=== PATIENT | female | born 1975 | race Caucasian/White ===

== ENCOUNTER 2024-09-24 22:54 | Observation (INO) | payer MEDICARE, SELFPAY ==
--- OUTSIDE RECORDS SUMMARY | 2012-03-13 11:00 | XMS_ITS | Continuity of Care Document ---
Author Organization [facility] Address [address] [place] [address] Phone Care Team Providers Care Business Office Technician Name Role Phone Norman Odonnell MD Unavailable Unavailable Allergies, Adverse Reactions, Alerts Substance Reaction Status Criticality No Known allergies Medications Medication Instructions Dosage Effective Dates (start - stop) Status Comments TIZANIDINE HCL (unknown strength) take 1 capsule by oral route 3 times every day Not Available - Active PRAVASTATIN SODIUM (unknown strength) take 2 tablet by oral route every day Not Available - Active BUPROPION HCL (unknown strength) Not Available - Active LANTUS (unknown strength) inject by subcutaneous route as per insulin protocol Not Available - Active NOVOLOG (unknown strength) use as directed Not Available - Active Procedures Procedure Date OFFICE/OUTPATIENT VISIT, NEW Advance Directives Directive Yes / No Effective Date File Name Resuscitation Not Answered N/A N/A Life Support Not Answered N/A N/A Intubation Not Answered N/A N/A Antibiotics Not Answered N/A N/A IV Fluid Support Not Answered N/A N/A Tube Feed Not Answered N/A N/A Other Directive N/A N/A WARNING:The information contained in this section is historical and is provided for information only and does not constitute a legal document or any assurance that the information is still accurate. Please verify the information with the pritchett of the legal document before using it for clinical purposes. Encounters Encounter Description Practice Location Reason(s) For Visit Diagnoses Date Provider Providers Copied on Encounter OFFICE/OUTPATI ENT VISIT, [facility], [address] [facility], [place], [address], [place] tel:[phone] [facility] [employer] NOS Blas Austin. [address] [facility], [place], [place], [id number], [place]. tel:[phone] Other Provider: Aaron Meng, [address], [place], [address]. tel:[phone] ring Provider: David Ferro, [address] [facility], 3rd Floor, [place], [address]. tel:[phone] Family History Family Member Type Diagnosis Age At Onset No Information Payers Payer name Insurance type Covered republican ID Authoriza tion(s) No Information Social History Type Description Quantity Date Captured Comments Alcohol Use Details No Caffeine Use Details Unknown Tobacco Use Status No Information Smoking Status Current every day smoker Smoking Tobacco Use Details Cigarette: No Details Available Cigarette: No Details Available Sex Female Chief Complaint And Reason For Visit No Information Reason For Referral Reason For Referral No Information History Of Present Illness Encounter Date Complaint History Of Prese nt Illness No Information Functional Status Date Functional Assessmen t No Information Instructions Date Instruction Additional Infor mation - OPTIC ATROPHY NOS - OU, with h/o disc swelling. could be diabetic papillopathy, naion, or optic neuritis given underlying medical diagnoses. from treatment standpoint it doesn't matter. Interestingly, pt unaware of change in vision. Related to See impression: general plan - Return in PRN Related to See i mpression: general plan Assessments Type Assessment Date No Information Patient Care Teams Name Effective Dates (start - stop) Status Members No Information
--- OUTSIDE RECORDS SUMMARY | 2021-09-22 05:00 | XMS_ITS | Encounter Summary ---
Author Organization [place] [address] Care Team Providers Care Ski Patroller Name Role Phone Selin Belcher MD Unavailable [phone] Héctor Espinoza DO, Viral Primary Care Provider [phone] Encounter Details Date Type Department Care Team (Late st Contact Info) Description 09/22/2021 5:00 AM EDT Hospital Encounter SE Referral Lab 1 [place], [place] [id number] Amina Rodriguez, KNITTING MACHINE FIXER [address] [facility] [address] [place] [address] Social History Tobacco Use Types Packs/Day Years Used Date Smoking Tobacco: Former Cigarettes 0.3 32.1 1 990 - 05/01/2021 Smokeless Tobacco: Never Comments:vapes Alcohol Use Standard Drinks/Week Comments Not Currently 0 (1 standard drink = 0.6 oz pur e alcohol) occasion, none for 1 year Overall Financial Resource Strain (CARDIA) Answe r Date Recorded How hard is it for you to pa y for the very basics like food, housing, medical care, and heating? Somewhat hard 12/08/2023 PHQ-2 Answer Date Recorded PHQ-2 Total Score 0 10/27/2023 [facility] [place] of Occupat ional Health - Occupational Stress Questionnaire Answer Date Recorded Do you feel stress - tense, restless, nervous, or anxious, or unable to sleep at night because your mind is troubled all the time - these days? To some extent 12/08/2023 Exercise Vital Sign Answer Date Recorde d On average, how many days pe r week do you engage in moderate to strenuous exercise (like a brisk walk)? 7 days 12/08/2023 On average, how many minutes do you engage in exercise at this level? 30 min 12/08/2023 Hunger Vital Sign Answer Date Recorded Within the past 12 months, y ou worried that your food would run out before you got the money to buy more. Never true 12/05/19 23 Within the past 12 months, t he food you bought just didn't last and you didn't have money to get more. Never true 12/04/2022 PRAPARE - Transportation Answer Date Re corded In the past 12 months, has l ack of transportation kept you from medical appointments or from getting medications? No 11/2023 In the past 12 months, has l ack of transportation kept you from meetings, work, or from getting things needed for daily living? No 12/08/2023 Housing Stability Vital Sign Answer Dav e Recorded In the last 12 months, was t here a time when you were not able to pay the mortgage or rent on time? No 12/04/2022 Number of Places Lived in the Last Year Not on f ile 12/04/2022 In the last 12 months, was t here a time when you did not have a steady place to sleep or slept in a half-way (including now)? No 12/04/2022 Sexually Active Control Partners Comments Yes Comments No Sex and Gender Information Value Date Recorded Sex Assigned at Not on file Legal Sex Female 7:32 PM EDT Gender Identity Not on file Sexual Orientation Not on file COVID-19 Exposure Response Date Recorded In the last 10 days, have yo u been in contact with someone who was confirmed or suspected to have Coronavirus/COVID-19? No / Unsure 11/07/2021 11:05 AM EDT documented as of this encounter Functional Status * Cognitive and Functional Status Question Answer Date of Assessment Author Is the person deaf or does h e/she have serious difficulty hearing? No 10/27/2023 7:59 AM EDT Yasemin Gonzales RMA Is the person blind or does he/she have serious difficulty seeing even when wearing glasses? No 10/27/2023 7:59 AM EDT Yasemin Gonzales R MA Does this person have seriou s difficulty walking or climbing stairs? No 10/27/2023 7:59 AM EDT Yasemin Gonzales RMA Does this person have diffic ulty dressing or bathing? No 10/27/2023 7:59 AM EDT Yasemin Gonzales RM A * Is the person deaf or does he/she have serious difficulty hearing? Answer Date of Assessment Author No 11/06/2020 8:26 AM EDT Mast RMA * Is the person blind or does he/she have serious difficulty seeing even when wearing glasses? Answer Date of Assessment Author No 11/06/2020 8:26 AM EDT Mast RMA * Does this person have serious difficulty walking or climbing stairs? Answer Date of Assessment Author No 11/06/2020 8:26 AM EDT Mast RMA * Does this person have difficulty dressing or bathing? Answer Date of Assessment Author No 11/06/2020 8:26 AM EDT Mast RMA * Because of a physical, mental or emotional condition, does this person have difficulty doing errands alone such as visiting a doctor's office or shopping? Answer Date of Assessment Author No 11/06/2020 8:26 AM EDDasilva RMA * PHQ-9 Total Score Answer Date of Assessment Author 0 10/27/2023 8:00 AM EDDasilva RMA * Question Answer Date of Assessment Author Little interest or pleasure in doing things 0 10/27/2023 8:00 AM EDYasemin Gonzalez RMA Feeling down, depressed, or hopeless 0 09/29 8:00 AM Yasemin Schreiber RMA PHQ-2 Total Score 0 10/27/2023 8:00 AM Yasemin Schreiber RMA * Question Answer Date of Assessment Author Feeling Nervous, Anxious, or on Edge 3 09/29 7:59 AM Yasemin Schreiber RMA Not Being Able to Stop or Co ntrol Worrying 3 10/27/2023 7:59 AM Yasemin Schreiber RMA Worrying too Much About Diff erent Things 3 10/27/2023 7:59 AM EDT Yasemin Gonzales RMA Trouble Relaxing 0 10/27/2023 7:59 AM EDT Yasemin Ac RMA Being so Restless That it is Hard to Sit Still 0 10/27/2023 7:59 AM EDT Yasemin Gonzales RMA Becoming Easily Annoyed or Irritable 1 09/29 7:59 AM EDT Yasemin Gonzales RMA Feeling Afraid as if Somethi ng Awful Might Happen 0 10/27/2023 7:59 AM EDT Yasemin Gonzales RMA ROBERT-7 Total Score 10 10/27/2023 7:59 AM EDT Yasemin Gonzales RMA * Suicide Severity Rating Answer Date of Assessment Author No Risk, Screening Complete 09/28/2021 11:28 AM EDT Johny Stubbs RN * [place] Suicide Severity Rating Scale (Q shift for moderate and high) Question Answer Date of Assessment Author 1. In the past month, have y ou wished you were or wished you could go to sleep and not wake up? 0 09/28/2021 11:28 AM Johny Thacker RN 2. In the past month, have y ou actually had any thoughts of killing yourself? (If no, skip to question 6) 0 09/28/2021 11:28 AM Johny Thacker RN 6. Have you ever done anythi ng, started to do anything, or prepared to do anything to end your life? 0.0 09/28/2021 11:28 AM Johny Thacker RN documented as of this encounter Mental Status * Cognitive and Functional Status Question Answer Entry Date Author Because of a physical, menta l or emotional condition, does this person have difficulty doing errands alone such as visiting a doctor's office or shopping? No 10/27/2023 7:59 AM EDT Yasemin Gonzales RMA Because of a physical, menta l or emotional condition, does this person have serious difficulty concentrating, remembering or making decisions? No 10/27/2023 7:59 AM EDT Yasemin Gonzales RMA * Because of a physical, mental or emotional condition, does this person have serious difficulty concentrating, remembering or making decisions? Answer Entry Date Author No 11/06/2020 8:26 AM EDT Mast RMA documented in this encounter Plan of Treatment Not on file documented as of this encounter Goals Goal Patient Goal Type Associated Problems Recent Progress Patient-Stated? Author Blood Pressure < 140/90 Blood Pressure 118/64(07/26 8:06 AM EDT) No Shannan De Jesus RMA 45 grams of carbohydrates intake for women Diet On track(2017 1:49 PM EDT) Yes Meagan Govea, RN Note: Patient to continue sliding scale of carbohydrates in conjunction with sliding scale of insulin. BMI (Calculated) < 30 General 33.2( 025 8:06 AM EDT) No Shannan De Jesus RMA Maintain a healthy diet, exercise regularly and maintain an ideal body weight General On track(2017 1:49 PM EDT) No Yasemin Gonzales RMA Stay Tobacco Free Lifestyle On track(2017 1:49 PM EDT) No Yasemin Gonzales RMA Check fasting glucose daily and document Lifestyle On track(2017 1:49 PM EDT) No Meagan Govea, RN HEMOGLOBIN A1C < 7.0 Result Component 9.9(08/28/19 7:33 AM EDT) No Stefani Noriega LPN documented as of this encounter Results * (ABNORMAL) COMPREHENSIVE METABOLIC PANEL (09/22/2021 9:00 AM EDT) Sodium 133(L) 136 - 145 mmol/L 09/22/2021 11:23 AM EDT [facility] Potassium 4.3 3.5 - 5.0 mmol/L 09/22/2021 11:23 AM EDT [facility] Chloride 96(L) 98 - 107 mmol/L 09/22/2021 11:23 AM EDT [facility] Total CO2 27 22 - 29 mmol/L 09/22/2021 11:23 AM EDT [facility] Anion Gap 10 7 - 16 mmol/L 09/22/2021 11:23 AM EDT [facility] Calcium 7.8(L) 8.6 - 10.4 mg/dL 09/22/2021 11:23 AM EDT [facility] Glucose Lvl 340(H) 74 - 100 mg/dL 09/22/2021 11:23 AM EDT [facility] BUN 13 6 - 20 mg/dL 09/22/2021 11:23 AM EDT [facility] Creatinine 0.65 0.51 - 1.30 mg/dL 09/22/2021 11:23 AM EDT [facility] Albumin 2.5(L) 3.5 - 5.2 gm/dL 09/22/2021 11:23 AM EDT [facility] Total Protein 4.4(L) 6.4 - 8.3 gm/dL 09/22/2021 11:23 AM EDT [facility] Bili Total 0.7 0.1 - 1.3 mg/dL 09/22/2021 11:23 AM EDT [facility] ALT 20 <=41 U/L 09/22/2021 11:23 AM EDT [facility] AST 22 <=40 U/L 09/22/2021 11:23 AM EDT [facility] Alk Phos 88 36 - 123 U/L 09/22/2021 11:23 AM EDT [facility] eGFR (CKD-EPIcr 2020) 108 >=60 mL/min/1.7 3 m2 09/22/2021 11:23 AM EDT [facility] Comment:Estimated GFR was ca lculated using the CKD-EPIcr (2020) equation refit without race. The equation is recommended by the National Kidney Foundation - [place] Society of Nephrology Task Force. Blood Venipuncture / Unknown 09/22/2021 9:00 AM EDT 09/22/2021 10:11 AM EDT us Amina Rodriguez KNITTING MACHINE FIXER CHEMISTRY ORDERABLES Naina wood Result [facility] [address] [facility] , [place] [address] [facility] [address] [place], [place] [id number] documented in this encounter Visit Diagnoses Not on filedocumented in this encounter Care Teams Ski Patroller Relationship Specialty Start Date End Date Parish Anaya DO [address] [place] [address] PCP - General Family Medicine 10/11/14 Selin Belcher MD [address] [address] Internal Medicine-Endocrinology, Diabetes & Metabolism 03/08/14 documented as of this encounter
--- OUTSIDE RECORDS SUMMARY | 2021-09-22 05:00 | XMS_ITS | Encounter Summary ---
Author Organization [place] [address] Care Team Providers Care Acid Dipper Name Role Phone Selin Belcher MD Unavailable [phone] Héctor Espinoza DO, Viral Primary Care Provider [phone] Encounter Details Date Type Department Care Team (Late st Contact Info) Description 09/22/2021 5:00 AM EDT Hospital Encounter SE Referral Lab 1 [place], [place] [id number] Amina Rodriguez, SUPERVISOR [employer] [address] [facility] [address] [place] [address] Social History Tobacco Use Types [...] Date Recorded PHQ-2 Total Score 0 10/27/2023 [facility] [place] of Occupat ional Health - Occupational Stress [...] place to sleep or slept in a fpc (including now)? No 12/04/2022 Sexually Active Control [...] 11:28 AM EDT Johny Stubbs RN * [place] Suicide Severity Rating Scale (Q shift for [...] documented in this encounter Plan of Treatment Scheduled Orders Name Type Priority Associated Diagnoses Orde r Schedule URINALYSIS Lab Routine ONCE for 1 Occ urrences starting 09/22/2021 until 10/27/2021 documented as of this encounter Goals Goal [...] insulin. BMI (Calculated) < 30 General 33.2( 8:06 AM EDT) No Shannan De Jesus [...] Noriega LPN documented as of this encounter Visit Diagnoses Not on filedocumented in this encounter Care Teams Acid Dipper Relationship Specialty Start Date End Date Parish Anaya DO [address] [place] [address] PCP - General Family Medicine 10/11/14 Selin Belcher MD [address] [address] Internal Medicine-Endocrinology, Diabetes & Metabolism 03/08/14 documented as of this encounter
--- OUTSIDE RECORDS SUMMARY | 2021-09-22 05:00 | XMS_ITS | Encounter Summary ---
Author Organization [place] [address] Care Team Providers Care Measurement Supervisor Name Role Phone Selin Belcher MD Unavailable [phone] Héctor Espinoza DO, Viral Primary Care Provider [phone] Encounter Details Date Type Department Care Team (Late st Contact Info) Description 09/22/2021 5:00 AM EDT Hospital Encounter SE Referral Lab 1 [place], [place] [id number] Amina Rodriguez, CASTINGS DRAFTER [address] [facility] [address] [place] [address] Social History Tobacco Use Types [...] Date Recorded PHQ-2 Total Score 0 10/27/2023 [facility] [place] of Occupat ional Health - Occupational Stress [...] place to sleep or slept in a correction (including now)? No 12/04/2022 Sexually Active Control [...] or on Edge 3 09/29 7:59 AM Yasemni Schreiber RMA Not Being Able to Stop [...] 11:28 AM EDT Johny Stubbs RN * [place] Suicide Severity Rating Scale (Q shift for [...] Diet On track(2017 1:49 PM EDT) Yes Meagna Govea, RN Note: Patient to continue sliding [...] documented as of this encounter Results * T3 FREE (09/22/2021 9:00 AM EDT) T3 Free 2.04 2.00 - 4.40 pg/mL 09/22/2021 11:23 AM EDT [facility] Blood Venipuncture / Unknown 09/22/2021 9:00 AM EDT 09/22/2021 10:11 AM EDT Narrative [facility] - 09/22/2021 11:23 AM EDT Ingestion of caden doses of biotin (>5 mg/day) taken within 8 hours of drawing blood sample can interfere with this immunoassay test. us Amina Rodriguez CASTINGS DRAFTER CHEMISTRY ORDERABLES Naina wood Result [facility] [address] [facility] , [address] [place], [place] [phone] documented in this encounter Visit Diagnoses Not on filedocumented in this encounter Care Teams Measurement Supervisor Relationship Specialty Start Date End Date Parish Anaya V, DO [address] [place] [phone] PCP - General Family Medicine 10/11/14 Selin Belcher MD [address] [facility] [address] [place] [address] Internal Medicine-Endocrinology, Diabetes & Metabolism 03/08/14 documented as of this encounter
--- OUTSIDE RECORDS SUMMARY | 2021-09-22 05:00 | XMS_ITS | Encounter Summary ---
Author Organization [place] [address] Care Team Providers Care Bath Steward/Stewardess Name Role Phone Selin Belcher MD Unavailable [phone] Héctor Espinoza DO, Viral Primary Care Provider [phone] Encounter Details Date Type Department Care Team (Late st Contact Info) Description 09/22/2021 5:00 AM EDT Hospital Encounter SE Referral Lab 1 [place], [place] [id number] Amina Rodriguez, TERMINATION CLERK [address] [facility] [address] [place] [address] Social History Tobacco Use Types [...] Date Recorded PHQ-2 Total Score 0 10/27/2023 [facility] [place] of Occupat ional Health - Occupational Stress [...] place to sleep or slept in a [place] (including now)? No 12/04/2022 Sexually Active Control [...] 11:28 AM EDT Johny Stubbs RN * [place] Suicide Severity Rating Scale (Q shift for [...] Diet On track(2017 1:49 PM EDT) Yes Meaagn Govea, RN Note: Patient to continue sliding scale of carbohydrates in conjunction with sliding scale of insulin. BMI (Calculated) < 30 General 33.2( 025 8:06 AM EDT) No Shannan De Jseus RMA Maintain a healthy diet, exercise regularly [...] as of this encounter Results * (ABNORMAL) AMYLASE LEVEL (09/22/2021 9:00 AM EDT) Amylase Lvl 5(L) 28 - 100 U/L 09/22/2021 11:23 AM EDT [facility] Blood Venipuncture / Unknown 09/22/2021 9:00 AM EDT 09/22/2021 10:11 AM EDT us Amina Rodriguez TERMINATION CLERK CHEMISTRY ORDERABLES Naina l Result [facility] 1 [facility] , [address] [place] [id number] documented in this encounter Visit Diagnoses Not on filedocumented in this encounter Care Teams Bath Steward/Stewardess Relationship Specialty Start Date End Date Parish Anaya DO [address] [place] [address] PCP - General Family Medicine 10/11/14 Selin Belcher MD [address] [address] Internal Medicine-Endocrinology, Diabetes & Metabolism 03/08/14 documented as of this encounter
--- OUTSIDE RECORDS SUMMARY | 2021-09-22 05:00 | XMS_ITS | Encounter Summary ---
Author Organization [place] [address] Care Team Providers Care Domestic Violence Counselor Name Role Phone Selin Belcher MD Unavailable [phone] Héctor Espinoza DO, Viral Primary Care Provider [phone] Encounter Details Date Type Department Care Team (Late st Contact Info) Description 09/22/2021 5:00 AM EDT Hospital Encounter SE Referral Lab 1 [place], [place] [phone] Amina Rodriguez, APARTMENT MAINTENANCE SUPERVISOR [address] [facility] 120 [place] [address] Social History Tobacco Use Types [...] Date Recorded PHQ-2 Total Score 0 10/27/2023 [facility] [place] of Occupat ional Health - Occupational Stress [...] place to sleep or slept in a longterm (including now)? No 12/04/2022 Sexually Active Control [...] 11:28 AM EDT Johny Stubbs RN * [place] Suicide Severity Rating Scale (Q shift for [...] as of this encounter Results * (ABNORMAL) LIPASE LEVEL (09/22/2021 9:00 AM EDT) Lipase Lvl 6(L) 13 - 60 U/L 09/22/2021 11:23 AM EDT [facility] Blood Venipuncture / Unknown 09/22/2021 9:00 AM EDT 09/22/2021 10:11 AM EDT us Amina Rodriguez APARTMENT MAINTENANCE SUPERVISOR CHEMISTRY ORDERABLES Naina l Result [facility] 1 [facility] , [address] [place] [id number] documented in this encounter Visit Diagnoses Not on filedocumented in this encounter Care Teams Domestic Violence Counselor Relationship Specialty Start Date End Date Parish Anaya DO [address] [place] [address] PCP - General Family Medicine 10/11/14 Selin Belcher MD [address] [address] Internal Medicine-Endocrinology, Diabetes & Metabolism 03/08/14 documented as of this encounter
--- OUTSIDE RECORDS SUMMARY | 2021-09-22 05:00 | XMS_ITS | Encounter Summary ---
Author Organization [place] [address] Care Team Providers Care Photographic Restorer Name Role Phone Selin Belcher MD Unavailable [phone] Héctor Espinoza DO, Viral Primary Care Provider [phone] Encounter Details Date Type Department Care Team (Late st Contact Info) Description 09/22/2021 5:00 AM EDT Hospital Encounter SE Referral Lab 1 [place], [place] [id number] Amina Rodriguez, MOVIE ACTOR 47 [facility] 120 [place] [address] Social History Tobacco Use Types [...] Date Recorded PHQ-2 Total Score 0 10/27/2023 [facility] [place] of Occupat ional Health - Occupational Stress [...] place to sleep or slept in a jail (including now)? No 12/04/2022 Sexually Active Control [...] 11:28 AM EDT Johny Stubbs RN * [place] Suicide Severity Rating Scale (Q shift for [...] On track(2017 1:49 PM EDT) No Meagan Govea RN HEMOGLOBIN A1C < 7.0 Result Component 9.9(08/28/19 7:33 AM EDT) No Stefani Noriega LPN documented as of this encounter Results * T4, FREE (THYROXINE) (09/22/2021 9:00 AM EDT) Free T4 0.88 0.80 - 1.80 ng/dL 09/22/2021 11:23 AM EDT [facility] Blood Venipuncture / Unknown 09/22/2021 9:00 AM EDT 09/22/2021 10:11 AM EDT Narrative [facility] - 09/22/2021 11:23 AM EDT Ingestion of caden doses of biotin (>5 mg/day) taken within 8 hours of drawing blood sample can interfere with this immunoassay test. us Amina Rodriguez MOVIE ACTOR CHEMISTRY ORDERABLES Naina israel Result [facility] 1 [facility] , [address] [place] [id number] documented in this encounter Visit Diagnoses Not on filedocumented in this encounter Care Teams Photographic Restorer Relationship Specialty Start Date End Date Parish Anaya V, DO [address] [place] [phone] PCP - General Family Medicine 10/11/14 Selin Belcher MD [address] [facility] [address] [place] [address] Internal Medicine-Endocrinology, Diabetes & Metabolism 03/08/14 documented as of this encounter
--- OUTSIDE RECORDS SUMMARY | 2021-09-22 05:00 | XMS_ITS | Encounter Summary ---
Author Organization [place] [address] Care Team Providers Care Automobile Rental Clerk Name Role Phone Selin Belcher MD Unavailable [phone] Héctor Espinoza DO, Viral Primary Care Provider [phone] Encounter Details Date Type Department Care Team (Late st Contact Info) Description 09/22/2021 5:00 AM EDT Hospital Encounter SE Referral Lab 1 [place], [place] [id number] Amina Rodriguez, NUMERICAL CONTROL MACHINE TOOL OPERATOR 47 [facility] 120 [place] [address] Social History Tobacco Use Types [...] Date Recorded PHQ-2 Total Score 0 10/27/2023 [facility] [place] of Occupat ional Health - Occupational Stress [...] place to sleep or slept in a usp (including now)? No 12/04/2022 Sexually Active Control [...] Total Score 10 10/27/2023 7:59 AM EDT Yaesmin Gonzales RMA * Suicide Severity Rating Answer Date of Assessment Author No Risk, Screening Complete 09/28/2021 11:28 AM EDT Johny Stubbs RN * [place] Suicide Severity Rating Scale (Q shift for [...] documented as of this encounter Results * FOLATE LEVEL (09/22/2021 9:00 AM EDT) Folate 8.04 >=4.80 ng/mL 09/22/2021 11:32 AM EDT [facility] Blood Venipuncture / Unknown 09/22/2021 9:00 AM EDT 09/22/2021 10:11 AM EDT Narrative [facility] - 09/22/2021 11:32 AM EDT Ingestion of caden doses of biotin (>5 mg/day) taken within 8 hours of drawing blood sample can interfere with this immunoassay test. Amina Rodriguez NUMERICAL CONTROL MACHINE TOOL OPERATOR CHEMISTRY ORDERABLES Naina wood Result [facility] 1 [facility], [address] [place] [phone] documented in this encounter Visit Diagnoses Not on filedocumented in this encounter Care Teams Automobile Rental Clerk Relationship Specialty Start Date End Date Parish Anaya V DO [address] [place] [address] PCP - General Family Medicine 10/11/14 Selin Belcher MD [address] [facility] [address] [place] [address] Internal Medicine-Endocrinology, Diabetes & Metabolism 03/08/14 documented as of this encounter
--- OUTSIDE RECORDS SUMMARY | 2021-09-22 05:00 | XMS_ITS | Encounter Summary ---
Author Organization [place] [address] Care Team Providers Care Residential Sales Name Role Phone Selin Belcher MD Unavailable [phone] Héctor Espinoza DO, Viral Primary Care Provider Encounter Details Date Type Department Care Team (Late st Contact Info) Description 09/22/2021 5:00 AM EDT Hospital Encounter SE Referral Lab 1 [place], [place] [phone] Amina Rodriguez, COOK NIGHT 47 [facility] 120 [place] [address] Social History Tobacco Use Types [...] Date Recorded PHQ-2 Total Score 0 10/27/2023 [facility] [place] of Occupat ional Health - Occupational Stress [...] place to sleep or slept in a nursing home (including now)? No 12/04/2022 Sexually Active Control [...] depressed, or hopeless 0 09/29 8:00 AM Ysaemin Schreiber RMA PHQ-2 Total Score 0 10/27/2023 [...] 11:28 AM EDT Johny Stubbs RN * [place] Suicide Severity Rating Scale (Q shift for [...] as of this encounter Results * (ABNORMAL) CBC WITH DIFF (09/22/2021 9:00 AM EDT) [facility] WBC 6.5 3.7 - 10.3 x10(3)/mcL 09/22/2021 10:44 AM EDT [facility] RBC 2.63(L) 3.90 - 5.20 x10(6)/mcL 09/22/2021 10:44 AM EDT [facility] Hgb 7.9(L) 11.2 - 15.7 g/dL 09/22/2021 10:44 AM EDT [facility] Hct 23.3(L) 34.0 - 45.0 % 09/22/2021 10:44 AM EDT [facility] MCV 88.6 80.0 - 100.0 fL 09/22/2021 10:44 AM EDT [facility] MCH 30.0 26.0 - 34.0 pg 09/22/2021 10:44 AM EDT [facility] MCHC 33.9 30.7 - 35.5 g/dL 09/22/2021 10:44 AM EDT [facility] RDW 14.4 <=14.9 % 09/22/2021 10:44 AM EDT [facility] Platelet 143(L) 155 - 369 x10(3)/mcL 09/22/2021 10:44 AM EDT [facility] MPV 11.3 8.8 - 12.5 fL 09/22/2021 10:44 AM EDT [facility] NRBC Auto % 0.5(H) <=0.0 % 09/22/2021 10:44 AM EDT [facility] NRBC# 0.0 x10(3)/mcL 09/22/2021 10:44 AM EDT [facility] Neut Percent 64.7 % 09/22/2021 10:44 AM EDT [facility] Comment:Neutrophils equals s egs plus bands Imm Gran% 1.1 % 09/22/2021 10:44 AM EDT [facility] Comment:Automated count of m etamyelocytes, myelocytes and promyelocytes. IG >1% represents a left shift and provides an early indication of an infection or inflammatory process. Lymph Percent 20.4 % 09/22/2021 10:44 AM EDT [facility] Ray Percent 9.7 % 09/22/2021 10:44 AM EDT [facility] Eos Percent 3.6 % 09/22/2021 10:44 AM EDT [facility] Baso Percent 0.5 % 09/22/2021 10:44 AM EDT [facility] Neut # 4.2 1.6 - 6.1 x10(3)/mcL 09/22/2021 10:44 AM EDT [facility] Comment:Neutrophils equals s egs plus bands IMMGRAN# 0.1 0.0 - 0.1 x10(3)/mcL 09/22/2021 10:44 AM EDT [facility] Comment:Automated count of m etamyelocytes, myelocytes and promyelocytes. An absolute IG <0.1 is reported as 0.0. Lymph # 1.3 1.2 - 3.9 x10(3)/[facility] 09/22/2021 10:44 AM EDT [facility] Ray # 0.6 0.3 - 0.9 x10(3)/[facility] 09/22/2021 10:44 AM EDT [facility] Eos# 0.2 0.0 - 0.5 x10(3)/[facility] 09/22/2021 10:44 AM EDT [facility] Baso # 0.0 0.0 - 0.1 x10(3)/[facility] 09/22/2021 10:44 AM EDT [facility] Blood Venipuncture / Unknown 09/22/2021 9:00 AM EDT 09/22/2021 10:11 AM EDT us Amina Rodriguez COOK NIGHT HEMATOLOGY ORDERABLES Fin al Result [facility] 1 [facility], [place] [address] documented in this encounter Visit Diagnoses Not on filedocumented in this encounter Care Teams Residential Sales Relationship Specialty Start Date End Date Héctor, Viral V, DO [address] [place] [address] PCP - General Family Medicine 10/11/14 Selin Belcher MD [address] [place] [address] Internal Medicine-Endocrinology, Diabetes & Metabolism 03/08/14 documented as of this encounter
--- OUTSIDE RECORDS SUMMARY | 2021-09-22 05:00 | XMS_ITS | Encounter Summary ---
Author Organization [place] [address] Care Team Providers Care Geographical Historian Name Role Phone Selin Belcher MD Unavailable [phone] Héctor Espinoza DO, Viral Primary Care Provider [phone] Encounter Details Date Type Department Care Team (Late st Contact Info) Description 09/22/2021 5:00 AM EDT Hospital Encounter SE Referral Lab 1 [place], [place] [phone] Amina Rodriguez, SECOND RIDE FARE COLLECTOR 47 [facility] 120 [place] [address] Social History Tobacco Use Types [...] Date Recorded PHQ-2 Total Score 0 10/27/2023 [facility] [place] of Occupat ional Health - Occupational Stress [...] 11:28 AM EDT Johny Stubbs RN * [place] Suicide Severity Rating Scale (Q shift for [...] as of this encounter Results * (ABNORMAL) CREATINE KINASE (09/22/2021 9:00 AM EDT) CK 301(H) 26 - 192 U/L 09/22/2021 11:23 AM EDT [facility] Blood Venipuncture / Unknown 09/22/2021 9:00 AM EDT 09/22/2021 10:11 AM EDT us Amina Rodriguez SECOND RIDE FARE COLLECTOR CHEMISTRY ORDERABLES Naina israel Result [facility] 2 Step 1 [facility] , [address] [place] [phone] documented in this encounter Visit Diagnoses Not on filedocumented in this encounter Care Teams Geographical Historian Relationship Specialty Start Date End Date Parish Anaya DO [address] [place] [address] PCP - General Family Medicine 10/11/14 Selin Belcher MD [address] [address] Internal Medicine-Endocrinology, Diabetes & Metabolism 03/08/14 documented as of this encounter
--- OUTSIDE RECORDS SUMMARY | 2021-09-22 05:00 | XMS_ITS | Encounter Summary ---
Author Organization [place] [address] Care Team Providers Care President & Ceo [employer] Name Role Phone Selin Belcher MD Unavailable [phone] Héctor Espinoza DO, Viral Primary Care Provider [phone] Encounter Details Date Type Department Care Team (Late st Contact Info) Description 09/22/2021 5:00 AM EDT Hospital Encounter SE Referral Lab 1 [place], [place] [phone] Amina Rodriguez, PARTS SALESPERSON 47 [facility] 120 [place] [address] Social History Tobacco Use Types [...] Date Recorded PHQ-2 Total Score 0 10/27/2023 [facility] [place] of Occupat ional Health - Occupational Stress [...] place to sleep or slept in a senior living (including now)? No 12/04/2022 Sexually Active Control [...] Co ntrol Worrying 3 10/27/2023 7:59 AM Yaseimn Schreiber RMA Worrying too Much About Diff [...] 11:28 AM EDT Johny Stubbs RN * [place] Suicide Severity Rating Scale (Q shift for [...] as of this encounter Results * (ABNORMAL) THYROID STIMULATING HORMONE (09/22/2021 9:00 AM EDT) TSH 5.660(H) 0.270 - 4.200 mcIU/mL 09/22/2021 11:23 AM EDT [facility] Blood Venipuncture / Unknown 09/22/2021 9:00 AM EDT 09/22/2021 10:11 AM EDT Narrative [facility] - 09/22/2021 11:23 AM EDT Ingestion of caden doses of biotin (>5 mg/day) taken within 8 hours of drawing blood sample can interfere with this immunoassay test. Amina Rodriguez PARTS SALESPERSON CHEMISTRY ORDERABLES Naina israel Result [facility] 1 [facility], [address] [place] [phone] documented in this encounter Visit Diagnoses Not on filedocumented in this encounter Care Teams President & Ceo [employer] Relationship Specialty Start Date End Date Parish Anaya V, DO [address] [place] [address] PCP - General Family Medicine 10/11/14 Selin Belcher MD [address] [place] [address] Internal Medicine-Endocrinology, Diabetes & Metabolism 03/08/14 documented as of this encounter
--- OUTSIDE RECORDS SUMMARY | 2021-09-22 05:00 | XMS_ITS | Encounter Summary ---
Author Organization [place] [address] Care Team Providers Care Director Of Workforce Development Name Role Phone Selin Belcher MD Unavailable [phone] Héctor Espinoza DO, Viral Primary Care Provider [phone] Encounter Details Date Type Department Care Team (Late st Contact Info) Description 09/22/2021 5:00 AM EDT Hospital Encounter SE Referral Lab 1 [place], [place] [phone] Amina Rodriguez, TOW DRIVER 47 [address] [place] [address] Social History Tobacco Use Types [...] Date Recorded PHQ-2 Total Score 0 10/27/2023 [facility] [place] of Occupat ional Health - Occupational Stress [...] 11:28 AM EDT Johny Stubbs RN * [place] Suicide Severity Rating Scale (Q shift for [...] as of this encounter Results * (ABNORMAL) PREALBUMIN (09/22/2021 9:00 AM EDT) Prealbumin 6.9(L) 20.0 - 40.0 mg/dL 09/22/2021 11:14 AM EDT [facility] [employer] Blood Venipuncture / Unknown 09/22/2021 9:00 AM EDT 09/22/2021 10:11 AM EDT us Amina Rodriguez TOW DRIVER CHEMISTRY ORDERABLES Naina l Result [facility] [employer] [address] [place] [address] , [address] [place], [place] [phone] documented in this encounter Visit Diagnoses Not on filedocumented in this encounter Care Teams Director Of Workforce Development Relationship Specialty Start Date End Date Parish Anaya DO [address] [place] [address] PCP - General Family Medicine 10/11/14 Selin Belcher MD [address] [phone] Internal Medicine-Endocrinology, Diabetes & Metabolism 03/08/14 documented as of this encounter
--- OUTSIDE RECORDS SUMMARY | 2021-09-22 05:00 | XMS_ITS | Encounter Summary ---
Author Organization [place] [address] Care Team Providers Care Guard Immigration Name Role Phone Selin Belcher MD Unavailable [phone] Héctor Espinoza DO, Viral Primary Care Provider [phone] Encounter Details Date Type Department Care Team (Late st Contact Info) Description 09/22/2021 5:00 AM EDT Hospital Encounter SE Referral Lab 1 [place], [place] [phone] Amina Rodriguez, CONTENT ADMINISTRATOR [address] [facility] 120 [place] [address] Social History Tobacco Use Types [...] Date Recorded PHQ-2 Total Score 0 10/27/2023 [facility] [place] of Occupat ional Health - Occupational Stress [...] place to sleep or slept in a detention (including now)? No 12/04/2022 Sexually Active Control [...] 11:28 AM EDT Johny Stubbs RN * [place] Suicide Severity Rating Scale (Q shift for [...] as of this encounter Results * (ABNORMAL) URINE CULTURE (NO STAIN) (09/22/2021 4:30 AM EDT) Culture Positive Growth(A) 09/25/2021 7:31 AM EDT [facility] Culture >[id number] CFU/mL Enterococcus faecalis SUSCEPTIB ILITY RESULT 09/25/2021 7:31 AM EDT [facility] Comment: Vancomycin Screen Sensitive. Usual therapy for uncomplicated Enterococcal UTI's: Ampicillin or Nitrofurantoin. No further workup. Culture [id number] CFU/mL Escherichia coli SUSCEPTIB ILITY RESULT 09/25/2021 7:31 AM EDT [facility] Urine URINE SPECIMEN COLLECTION, CLEAN CATCH / Unknown 09/22/2021 4:30 AM EDT 09/22/2021 11:07 AM EDT Narrative Organism Antibiotic Method Susceptibility Escherichia coli Amikacin SUSCEPTIBILITY RESULT <=16 ug/mL: Susceptible Escherichia coli Amoxicillin/Clavulanate SUSCEPTIBILIT Y RESULT <=8/4 ug/mL: Susceptible Escherichia coli Ampicillin SUSCEPTIBILITY RESULT <=8 ug/mL: Susceptible Escherichia coli Ampicillin/Sulbactam SUSCEPTIBILITY R ESULT <=4/2 ug/mL: Susceptible Escherichia coli Aztreonam SUSCEPTIBILITY RESULT <=4 ug/mL: Susceptible Escherichia coli Cefazolin SUSCEPTIBILITY RESULT <=2 ug/mL: Susceptible Escherichia coli Cefepime SUSCEPTIBILITY RESULT Escherichia coli Cefotaxime SUSCEPTIBILITY RESULT Escherichia coli Cefoxitin SUSCEPTIBILITY RESULT <=8 ug/mL: Susceptible Escherichia coli Ceftazidime SUSCEPTIBILITY RESULT Escherichia coli Ceftazidime/Avibactam SUSCEPTIBILITY RESULT Escherichia coli Ceftolozane/Tazobactam SUSCEPTIBILITY RESULT Escherichia coli Ceftriaxone SUSCEPTIBILITY RESULT Escherichia coli Cefuroxime SUSCEPTIBILITY RESULT Escherichia coli Ciprofloxacin SUSCEPTIBILITY RESULT <=0.25 ug/mL: Susceptible Escherichia coli Ertapenem SUSCEPTIBILITY RESULT <=0.5 ug/mL: Susceptible Escherichia coli Gentamicin SUSCEPTIBILITY RESULT <=2 ug/mL: Susceptible Escherichia coli Imipenem SUSCEPTIBILITY RESULT <=1 ug/mL: Susceptible Escherichia coli Levofloxacin SUSCEPTIBILITY RESULT <=0.5 ug/mL: Susceptible Escherichia coli Meropenem SUSCEPTIBILITY RESULT <=1 ug/mL: Susceptible Escherichia coli Meropenem/Vaborbactam SUSCEPTIBILITY RESULT Escherichia coli Minocycline SUSCEPTIBILITY RESULT Escherichia coli Moxifloxacin SUSCEPTIBILITY RESULT Escherichia coli Nitrofurantoin SUSCEPTIBILITY RESULT <=32 ug/mL: Susceptible Escherichia coli Piperacillin/Tazobactam SUSCEPTIBILIT Y RESULT <=8 ug/mL: Susceptible Escherichia coli Tetracycline SUSCEPTIBILITY RESULT <=4 ug/mL: Susceptible Escherichia coli Tigecycline SUSCEPTIBILITY RESULT Escherichia coli Tobramycin SUSCEPTIBILITY RESULT <=2 ug/mL: Susceptible Escherichia coli Trimethoprim/Sulfame tho xazole SUSCEPTIBILITY RESULT <=0.5/9.5 ug/mL: Susceptible us Amina Rodriguez CONTENT ADMINISTRATOR MICROBIOLOGY - GENERAL OR DERABLES Final Result [facility], [facility] [address] [facility] , [place] [address] documented in this encounter Visit Diagnoses Not on filedocumented in this encounter Care Teams Guard Immigration Relationship Specialty Start Date End Date Parish Anaya DO [address] [place] [address] PCP - General Family Medicine 10/11/14 Selin Belcher MD [address] [address] Internal Medicine-Endocrinology, Diabetes & Metabolism 03/08/14 documented as of this encounter
--- OUTSIDE RECORDS SUMMARY | 2021-09-22 05:00 | XMS_ITS | Encounter Summary ---
Author Organization [place] [address] Care Team Providers Care Covered Button Maker Name Role Phone Selin Belcher MD Unavailable [phone] Héctor Espinoza DO, Viral Primary Care Provider [phone] Encounter Details Date Type Department Care Team (Late st Contact Info) Description 09/22/2021 5:00 AM EDT Hospital Encounter SE Referral Lab 1 [place], [place] [phone] Amina Rodriguez, JANITORIAL SUPERVISOR 47 [facility] 120 [place] [address] Social History Tobacco Use Types [...] Date Recorded PHQ-2 Total Score 0 10/27/2023 [facility] [place] of Occupat ional Health - Occupational Stress [...] 11:28 AM EDT Johny Stubbs RN * [place] Suicide Severity Rating Scale (Q shift for [...] as of this encounter Results * (ABNORMAL) HEMOGLOBIN A1C (09/22/2021 9:00 AM EDT) Hgb A1C 6.8(H) 4.2 - 5.6 % 09/22/2021 11:21 AM EDT [facility] [employer] Avg Glucose 148 mg/dL 09/22/2021 11:21 AM EDT [facility] [employer] Blood Venipuncture / Unknown 09/22/2021 9:00 AM EDT 09/22/2021 10:11 AM EDT Narrative [facility] [employer] - 09/22/2021 11:21 AM EDT REFERENCE RANGE: Normal: 4.0-5.6% Pre-diabetes: 5.7-6.4% Provisional diagnosis of diabetes: >6.4% Hgb F>10% and anything which shortens red cell survival, such as hemolytic anemia, or unstable hemoglobin variants such as HbSS, HbSC, or HbCC, will lower the HbA1c value associated with a given level of glycemic control. us Amina Rodriguez JANITORIAL SUPERVISOR CHEMISTRY ORDERABLES Naina l Result [facility] [address] [place] [address] , [address] [place] [phone] documented in this encounter Visit Diagnoses Not on filedocumented in this encounter Care Teams Covered Button Maker Relationship Specialty Start Date End Date Parish Anaya DO [address] [place] [address] PCP - General Family Medicine 10/11/14 Selin Belcher MD [address] [facility] [address] [place] [address] Internal Medicine-Endocrinology, Diabetes & Metabolism 03/08/14 documented as of this encounter
--- OUTSIDE RECORDS SUMMARY | 2021-09-24 05:00 | XMS_ITS | Encounter Summary ---
Author Organization [place] [address] Care Team Providers Care Security Services Manager Name Role Phone Selin Belcher MD Unavailable [phone] Héctor Espinoza DO, Viral Primary Care Provider [phone] Encounter Details Date Type Department Care Team (Late st Contact Info) Description 09/24/2021 5:00 AM EDT Hospital Encounter SE Referral Lab 1 [place], [place] [phone] Amina Rodriguez, NEW AUTOS DELIVERY DRIVER 47 [facility] 120 [place] [address] Social History Tobacco Use Types [...] Date Recorded PHQ-2 Total Score 0 10/27/2023 [facility] [place] of Occupat ional Health - Occupational Stress [...] doing things 0 10/27/2023 8:00 AM EDYasemin Gonzaelz RMA Feeling down, depressed, or hopeless 0 [...] 11:28 AM EDT Johny Stubbs RN * [place] Suicide Severity Rating Scale (Q shift for [...] Type Priority Associated Diagnoses Orde r Schedule URINE CULTURE (NO STAIN) Microbiology Routine ONCE for 1 Occur rences starting 09/24/2021 until 10/29/2021 URINE CULTURE (NO STAIN) Microbiology Routine ONCE for 1 Occur rences starting 09/24/2021 until 10/29/2021 documented as of this encounter Goals Goal Patient Goal Type Associated Problems Recent Progress Patient-Stated? Author Blood Pressure < 140/90 Blood Pressure 118/64(07/26 8:06 AM EDT) No Shannan De Jesus RMA 45 grams of carbohydrates intake for women Diet On track(2017 1:49 PM EDT) Yes Meagan Govea RN Note: Patient to continue sliding scale [...] on filedocumented in this encounter Care Teams Security Services Manager Relationship Specialty Start Date End Date Parish Anaya DO [address] [place] [address] PCP - General Family Medicine 10/11/14 Selin Belcher MD [address] [address] Internal Medicine-Endocrinology, Diabetes & Metabolism 03/08/14 documented as of this encounter
--- OUTSIDE RECORDS SUMMARY | 2021-09-29 05:00 | XMS_ITS | Encounter Summary ---
Author Organization [place] [address] Care Team Providers Care Painter And Body Mechanic Apprentice Name Role Phone Selin Belcher MD Unavailable [phone] Héctor Espinoza DO, Viral Primary Care Provider [phone] Lexi Combs RN Unavailable Unava ilable Encounter Details Date Type Department Care Team (Late st Contact Info) Description 09/29/2021 5:00 AM EDT Hospital Encounter SE Referral Lab 1 [place], [place] [phone] Amina Rodriguez, FIELD TRAINING AGENT 47 [facility] 120 [place] [address] Social History Tobacco Use Types [...] Date Recorded PHQ-2 Total Score 0 10/27/2023 [facility] [place] of Occupat [facility] - Occupational Stress Questionnaire Answer Date Recorded [...] place to sleep or slept in a long term (including now)? No 12/04/2022 Sexually Active Control [...] 11/06/2020 8:26 AM EDT Mast RMA * PHQ-9 Total Score Answer Date of Assessment Author 0 10/27/2023 8:00 AM EDDasilva RMA * Question Answer Date of Assessment Author Little interest or pleasure in doing things 0 10/27/2023 8:00 AM EDT Yasemin Gonzales RMA Feeling down, depressed, or hopeless 0 09/29 8:00 AM EDYasemin Gonzalez RMA PHQ-2 Total Score 0 10/27/2023 8:00 AM EDYasemin Gonzalez RMA * Question Answer Date of Assessment Author Feeling Nervous, Anxious, or on Edge 3 09/29 7:59 AM EDYasemin Gonzalez RMA Not Being Able to Stop or Co ntrol Worrying 3 10/27/2023 7:59 AM EDYasemin Gonzalez RMA Worrying too Much About Diff erent Things 3 10/27/2023 7:59 AM EDT Yasemin Gonzales RMA Trouble Relaxing 0 10/27/2023 7:59 AM EDT B Yasemin torres RMA Being so Restless That it is Hard to Sit Still 0 10/27/2023 7:59 AM EDT Yasemin Gonzales RMA Becoming Easily Annoyed or Irritable 1 09/29 7:59 AM EDT Yasemin Gonzales RMA Feeling Afraid as if Somethi ng Awful Might Happen 0 10/27/2023 7:59 AM EDT Yasemin Gonzales RMA ROBERT-7 Total Score 10 10/27/2023 7:59 AM EDT Yasemin Gonzales RMA documented as of this encounter Mental Status * Cognitive and Functional Status Question Answer Entry Date Author Because of a physical, menta l or emotional condition, does this person have difficulty doing errands alone such as visiting a doctor's office or shopping? No 10/27/2023 7:59 AM EDT Yasemin Gonzales RMWarren Because of a physical, menta l or [...] Type Priority Associated Diagnoses Orde r Schedule PREALBUMIN Lab Routine ONCE for 1 Occ urrences starting 09/29/2021 until 11/03/2021 documented as of this encounter Goals Goal [...] of this encounter Results * (ABNORMAL) PREALBUMIN (09/29/2021 8:45 AM EDT) Prealbumin 9.1(L) 20.0 - 40.0 mg/dL 09/29/2021 12:07 PM EDT [facility] Blood Venipuncture / Unknown 09/29/2021 8:45 AM EDT 09/29/2021 10:51 AM EDT us Amina Rodriguez FIELD TRAINING AGENT CHEMISTRY ORDERABLES Naina l Result [facility] , [address] [place] [phone] documented in this encounter Visit Diagnoses Not on filedocumented in this encounter Care Teams Painter And Body Mechanic Apprentice Relationship Specialty Start Date End Date Parish Anaya V, DO [address] [place] [address] PCP - General Family Medicine 10/11/14 Selin Belcher MD [address] [place] [address] Internal Medicine-Endocrinology, Diabetes & Metabolism 03/08/14 Lexi Combs, RN Manager Administrative Registered Nurse 09/25/21 10/12/21 documented as of this encounter
--- OUTSIDE RECORDS SUMMARY | 2021-09-29 05:00 | XMS_ITS | Encounter Summary ---
Author Organization [place] [address] Care Team Providers Care Information Systems Auditor Name Role Phone Selin Belcher MD Unavailable [phone] Héctor Espinoza DO, Viral Primary Care Provider Lexi Combs RN Unavailable Unava ilable Encounter Details Date Type Department Care Team (Late st Contact Info) Description 09/29/2021 5:00 AM EDT Hospital Encounter SE Referral Lab 1 [place], [place] [id number] Amina Rodriguez, PRODUCT ACCOUNTANT 47 [facility] [address] [place] [address] Social History Tobacco Use Types [...] Date Recorded PHQ-2 Total Score 0 10/27/2023 [facility] [place] [facility] - Occupational Stress Questionnaire Answer Date Recorded [...] place to sleep or slept in a custodial (including now)? No 12/04/2022 Sexually Active Control [...] Type Priority Associated Diagnoses Orde r Schedule CBC WITH DIFF Lab Routine ONCE for 1 Occurrences starting 09/29/2021 until 11/03/2021 documented as of [...] encounter Results * (ABNORMAL) CBC WITH DIFF (09/29/2021 3:20 PM EDT) WBC 9.1 3.7 - 10.3 x10(3)/mcL 09/29/2021 5:30 PM EDT [facility] RBC 2.77(L) 3.90 - 5.20 x10(6)/mcL 09/29/2021 5:30 PM EDT [facility] Hgb 8.3(L) 11.2 - 15.7 g/dL 09/29/2021 5:30 PM EDT [facility] Hct 26.2(L) 34.0 - 45.0 % 09/29/2021 5:30 PM EDT [facility] MCV 94.6 80.0 - 100.0 fL 09/29/2021 5:30 PM EDT [facility] MCH 30.0 26.0 - 34.0 pg 09/29/2021 5:30 PM EDT [facility] MCHC 31.7 30.7 - 35.5 g/dL 09/29/2021 5:30 PM EDT [facility] RDW 16.2(H) <=14.9 % 09/29/2021 5:30 PM EDT [facility] Platelet 349 155 - 369 x10(3)/mcL 09/29/2021 5:30 PM EDT [facility] MPV 10.6 8.8 - 12.5 fL 09/29/2021 5:30 PM EDT [facility] Neut Percent 70.9 % 09/29/2021 5:30 PM EDT [facility] Comment:Neutrophils equals s egs plus bands Imm Gran% 0.7 % 09/29/2021 5:30 PM EDT [facility] Comment:Automated count of m etamyelocytes, myelocytes and promyelocytes. Lymph Percent 15.6 % 09/29/2021 5:30 PM EDT [facility] [place] Percent 8.7 % 09/29/2021 5:30 PM EDT [facility] Eos Percent 3.3 % 09/29/2021 5:30 PM EDT [facility] Baso Percent 0.8 % 09/29/2021 5:30 PM EDT [facility] Neut # 6.5(H) 1.6 - 6.1 x10(3)/[facility] 09/29/2021 5:30 PM EDT [facility] Comment:Neutrophils equals s egs plus bands IMMGRAN# 0.1 0.0 - 0.1 x10(3)/[facility] 09/29/2021 5:30 PM EDT [facility] Comment:Automated count of m etamyelocytes, myelocytes and promyelocytes. An absolute IG <0.1 is reported as 0.0. Lymph # 1.4 1.2 - 3.9 x10(3)/[facility] 09/29/2021 5:30 PM EDT [facility] [place] # 0.8 0.3 - 0.9 x10(3)/[facility] 09/29/2021 5:30 PM EDT [facility] Eos# 0.3 0.0 - 0.5 x10(3)/[facility] 09/29/2021 5:30 PM EDT [facility] Baso # 0.1 0.0 - 0.1 x10(3)/[facility] 09/29/2021 5:30 PM EDT [facility] Blood Venipuncture / Unknown 09/29/2021 3:20 PM EDT 09/29/2021 4:59 PM EDT us Aminajuan Sanderswes Rodriguez PRODUCT ACCOUNTANT HEMATOLOGY ORDERABLES Fin al Result [facility] [address] [place] [address], [place] [address] documented in this encounter Visit Diagnoses Not on filedocumented in this encounter Care Teams Information Systems Auditor Relationship Specialty Start Date End Date Parish Anaya V, DO [address] [place] [phone] PCP - General Family Medicine 10/11/14 Selin Belcher MD [address] [address] Internal Medicine-Endocrinology, Diabetes & Metabolism 03/08/14 Lexi Combs, RN It Security Project Manager Registered Nurse 09/25/21 10/12/21 documented as of this encounter
--- OUTSIDE RECORDS SUMMARY | 2021-09-29 05:00 | XMS_ITS | Encounter Summary ---
Author Organization [place] [address] Care Team Providers Care Drug Room Clerk Name Role Phone Selin Belcher MD Unavailable [phone] Héctor Espinoza DO, Viral Primary Care Provider Lexi Combs RN Unavailable Unava ilable Encounter Details Date Type Department Care Team (Late st Contact Info) Description 09/29/2021 5:00 AM EDT Hospital Encounter SE Referral Lab 1 [place], [place] [id number] Amina Rodriguez, MOLD HOISTER [address] [facility] 120 [place] [address] Social History Tobacco Use Types [...] Date Recorded PHQ-2 Total Score 0 10/27/2023 [facility] [place] [facility] - Occupational Stress Questionnaire Answer Date Recorded [...] Assessment Author No 11/06/2020 8:26 AM EDT Msat RMA * Does this person have serious [...] on Edge 3 09/29 7:59 AM EDYasemin Gonzlaez RMA Not Being Able to Stop or [...] Type Priority Associated Diagnoses Orde r Schedule COMPREHENSIVE METABOLIC PANEL Lab Routine ONCE for 1 Occur darling starting 09/29/2021 until 11/03/2021 documented as of [...] HEMOGLOBIN A1C < 7.0 Result Component 9.9(08/28/19 25 7:33 AM EDT) No Stefani Noriega LPN documented as of this encounter Results * (ABNORMAL) COMPREHENSIVE METABOLIC PANEL (09/29/2021 8:45 AM EDT) Sodium 138 136 - 145 mmol/L 09/29/2021 12:12 PM EDT [facility] Potassium 5.0 3.5 - 5.0 mmol/L 09/29/2021 12:12 PM EDT [facility] Chloride 101 98 - 107 mmol/L 09/29/2021 12:12 PM EDT [facility] Total CO2 25 22 - 29 mmol/L 09/29/2021 12:12 PM EDT [facility] Anion Gap 12 7 - 16 mmol/L 09/29/2021 12:12 PM EDT [facility] Calcium 8.4(L) 8.6 - 10.4 mg/dL 09/29/2021 12:12 PM EDT [facility] Glucose Lvl 265(H) 74 - 100 mg/dL 09/29/2021 12:12 PM EDT [facility] BUN 10 6 - 20 mg/dL 09/29/2021 12:12 PM EDT [facility] Creatinine 0.62 0.51 - 1.30 mg/dL 09/29/2021 12:12 PM EDT [facility] Albumin 3.1(L) 3.5 - 5.2 gm/dL 09/29/2021 12:12 PM EDT [facility] Total Protein 5.0(L) 6.4 - 8.3 gm/dL 09/29/2021 12:12 PM EDT [facility] Bili Total 0.7 0.1 - 1.3 mg/dL 09/29/2021 12:12 PM EDT [facility] ALT 15 <=41 U/L 09/29/2021 12:12 PM EDT [facility] AST 16 <=40 U/L 09/29/2021 12:12 PM EDT [facility] Alk Phos 134(H) 36 - 123 U/L 09/29/2021 12:12 PM EDT [facility] eGFR (CKD-EPIcr 2020) 109 >=60 mL/min/1.7 3 m2 09/29/2021 12:12 PM EDT [facility] Comment:Estimated GFR was ca lculated using the CKD-EPIcr (2020) equation refit without race. The equation is recommended by the National Kidney Foundation - [place] Society of Nephrology Task Force. Blood Venipuncture / Unknown 09/29/2021 8:45 AM EDT 09/29/2021 10:51 AM EDT us Amina Rodriguez MOLD HOISTER CHEMISTRY ORDERABLES Naina israel Result Performing Organization Address [facility]/State/ZIP Co de Phone Number [facility] [address] [facility], [place] [address] [facility] [address] [place], [place] [phone] documented in this encounter Visit Diagnoses Not on filedocumented in this encounter Care Teams Drug Room Clerk Relationship Specialty Start Date End Date Parish Anaya V, DO [address] [place] [phone] PCP - General Family Medicine 10/11/14 Selin Belcher MD [address] [facility] [address] [place] [address] Internal Medicine-Endocrinology, Diabetes & Metabolism 03/08/14 Lexi Combs, RN Dialysis Tech Registered Nurse 09/25/21 10/12/21 documented as of this encounter
--- OUTSIDE RECORDS SUMMARY | 2021-10-06 05:00 | XMS_ITS | Encounter Summary ---
Author Organization [place] [address] Care Team Providers Care Seismic Observer Name Role Phone Selin Belcher MD Unavailable [phone] Héctor Espinoza DO, Viral Primary Care Provider Lexi Combs RN Unavailable Unava ilable Encounter Details Date Type Department Care Team (Late st Contact Info) Description 10/06/2021 5:00 AM EDT Hospital Encounter SE Referral Lab 1 [place], [place] [phone] Amina Rodriguez, CANVASSING MANAGER 47 [facility] [address] [place] [address] Social History Tobacco Use Types [...] Date Recorded PHQ-2 Total Score 0 10/27/2023 [facility] [place] of Occupat [facility] - Occupational Stress Questionnaire Answer [...] place to sleep or slept in a care home (including now)? No 12/04/2022 Sexually Active [...] Might Happen 0 10/27/2023 7:59 AM EDT aYsemin Gonzales RMA ROBERT-7 Total Score 10 10/27/2023 [...] Type Priority Associated Diagnoses Orde r Schedule CREATINE KINASE Lab Routine ONCE for 1 Occurrences starting 10/06/2021 until 11/10/2021 documented as of this encounter Goals Goal [...] documented as of this encounter Results * CREATINE KINASE (10/06/2021 9:20 AM EDT) CK 49 26 - 192 U/L 10/06/2021 12:59 PM EDT [facility] Blood VENOUS BLOOD / Unknown Venipuncture / Unknown 10/06/2021 9:20 AM EDT 10/06/2021 11:43 AM EDT us Amina Rodriguez CANVASSING MANAGER CHEMISTRY ORDERABLES Naina israel Result [employer] [address] [place] [address], [place] [address] documented in this encounter Visit Diagnoses Not on filedocumented in this encounter Care Teams Seismic Observer Relationship Specialty Start Date End Date Parish Anaya V, DO [address] [place] [phone] PCP - General Family Medicine 10/11/14 Selin Belcher MD [address] [facility] [address] [place] [address] Internal Medicine-Endocrinology, Diabetes & Metabolism 03/08/14 Lexi Combs, RN Lending Manager Registered Nurse 09/25/21 10/12/21 documented as of this encounter
--- OUTSIDE RECORDS SUMMARY | 2021-10-06 05:00 | XMS_ITS | Encounter Summary ---
Author Organization [place] [address] Care Team Providers Care Paralegal Specialist Name Role Phone Selin Belcher MD Unavailable [phone] Héctor Espinoza DO, Viral Primary Care Provider [phone] Lexi Combs RN Unavailable Unava ilable Encounter Details Date Type Department Care Team (Late st Contact Info) Description 10/06/2021 5:00 AM EDT Hospital Encounter SE Referral Lab 1 [place], [place] [id number] Amina Rodriguez, CLEARANCE REPRESENTATIVE 47 [facility] [address] [place] [address] Social History Tobacco Use Types [...] 0 10/27/2023 [facility] - Occupational Stress Questionnaire Answer Date [...] place to sleep or slept in a fci (including now)? No 12/04/2022 Sexually Active Control [...] Routine ONCE for 1 Occ urrences starting 10/06/2021 until 11/10/2021 documented as of [...] of this encounter Results * (ABNORMAL) PREALBUMIN (10/06/2021 9:20 AM EDT) Prealbumin 11.7(L) 20.0 - 40.0 mg/dL 10/06/2021 12:55 PM EDT [facility] Blood Venipuncture / Unknown 10/06/2021 9:20 AM EDT 10/06/2021 11:43 AM EDT us Amina Rodriguez CLEARANCE REPRESENTATIVE CHEMISTRY ORDERABLES Naina l Result [facility] [employer] 1 [facility] , [address] [place] [phone] documented in this encounter Visit Diagnoses Not on filedocumented in this encounter Care Teams Paralegal Specialist Relationship Specialty Start Date End Date Parish Anaya V, DO [address] [place] [phone] PCP - General Family Medicine 10/11/14 Selin Belcher MD [address] [place] [address] Internal Medicine-Endocrinology, Diabetes & Metabolism 03/08/14 Lexi Combs, RN Trench Pipe Layer Helper Registered Nurse 09/25/21 10/12/21 documented as of this encounter
--- OUTSIDE RECORDS SUMMARY | 2021-10-06 05:00 | XMS_ITS | Encounter Summary ---
Author Organization [place] [address] Care Team Providers Care Bioengineer Name Role Phone Selin Belcher MD Unavailable [phone] Héctor Espinoza DO, Viral Primary Care Provider [phone] Lexi Combs RN Unavailable Unava ilable Encounter Details Date Type Department Care Team (Late st Contact Info) Description 10/06/2021 5:00 AM EDT Hospital Encounter SE Referral Lab 1 [place], [place] [phone] Amina Rodriguez, TELETRAY OPERATOR 47 [facility] [address] [place] [address] Social History Tobacco Use Types [...] Date Recorded PHQ-2 Total Score 0 10/27/2023 [facility] [place] of Occupat [facility] - Occupational Stress Questionnaire Answer Date [...] place to sleep or slept in a skilled nursing (including now)? No 12/04/2022 Sexually Active Control [...] encounter Results * (ABNORMAL) CBC WITH DIFF (10/06/2021 9:20 AM EDT) WBC 6.0 3.7 - 10.3 x10(3)/mcL 10/06/2021 12:32 PM EDT [facility] RBC 3.19(L) 3.90 - 5.20 x10(6)/mcL 10/06/2021 12:32 PM EDT [facility] Hgb 9.6(L) 11.2 - 15.7 g/dL 10/06/2021 12:32 PM EDT [facility] Hct 30.9(L) 34.0 - 45.0 % 10/06/2021 12:32 PM EDT [facility] MCV 96.9 80.0 - 100.0 fL 10/06/2021 12:32 PM EDT [facility] MCH 30.1 26.0 - 34.0 pg 10/06/2021 12:32 PM EDT [facility] MCHC 31.1 30.7 - 35.5 g/dL 10/06/2021 12:32 PM EDT [facility] RDW 16.8(H) <=14.9 % 10/06/2021 12:32 PM EDT [facility] Platelet 324 155 - 369 x10(3)/mcL 10/06/2021 12:32 PM EDT [facility] MPV 10.7 8.8 - 12.5 fL 10/06/2021 12:32 PM EDT [facility] Neut Percent 60.4 % 10/06/2021 12:32 PM EDT [facility] Comment:Neutrophils equals s egs plus bands Imm Gran% 0.3 % 10/06/2021 12:32 PM EDT [facility] Comment:Automated count of m etamyelocytes, myelocytes and promyelocytes. Lymph Percent 24.3 % 10/06/2021 12:32 PM EDT [facility] [place] Percent 8.3 % 10/06/2021 12:32 PM EDT [facility] Eos Percent 5.7 % 10/06/2021 12:32 PM EDT [facility] Baso Percent 1.0 % 10/06/2021 12:32 PM EDT [facility] Neut # 3.6 1.6 - 6.1 x10(3)/[facility] 10/06/2021 12:32 PM EDT [facility] Comment:Neutrophils equals s egs plus bands IMMGRAN# 0.0 0.0 - 0.1 x10(3)/[facility] 10/06/2021 12:32 PM EDT [facility] Comment:Automated count of m etamyelocytes, myelocytes and promyelocytes. An absolute IG <0.1 is reported as 0.0. Lymph # 1.5 1.2 - 3.9 x10(3)/[facility] 10/06/2021 12:32 PM EDT [facility] [place] # 0.5 0.3 - 0.9 x10(3)/[facility] 10/06/2021 12:32 PM EDT [facility] Eos# 0.3 0.0 - 0.5 x10(3)/[facility] 10/06/2021 12:32 PM EDT [facility] Baso # 0.1 0.0 - 0.1 x10(3)/[facility] 10/06/2021 12:32 PM EDT [facility] Blood VENOUS BLOOD / Unknown Venipuncture / Unknown 10/06/2021 9:20 AM EDT 10/06/2021 11:43 AM EDT us Aminajuan Sanderswes Rodriguez TELETRAY OPERATOR HEMATOLOGY ORDERABLES Fin al Result [facility] [address] [place] [address], [address] [place] [phone] documented in this encounter Visit Diagnoses Not on filedocumented in this encounter Care Teams Bioengineer Relationship Specialty Start Date End Date Parish Anaya V, DO [address] [place] [phone] PCP - General Family Medicine 10/11/14 Selin Belcher MD [address] [address] Internal Medicine-Endocrinology, Diabetes & Metabolism 03/08/14 Lexi Combs, RN Dye Line Operator Registered Nurse 09/25/21 10/12/21 documented as of this encounter
--- OUTSIDE RECORDS SUMMARY | 2024-07-26 08:20 | XMS_ITS | Encounter Summary ---
Author [place] [address] Care Team Providers Care Batch Records Clerk Name Role Phone Selin Belcher MD Unavailable [phone] Héctor Espinoza DO, Viral Primary Care Provider [phone] Reason for Visit * Reason Comments Medicare Annual Wellness Hyperlipidemia Diabetes Anxiety Encounter Details Date Type Department Care Team (Latest Contact Info) Description 07/26/2024 8:20 AM EDT Office Visit [facility] [address] [place] [address] Parish Anaya V, DO [address] [place] [address] Type 1 diabetes mellitus with diabetic neuropathy (HCC) (Primary Dx); Recurrent major depressive disorder, in full remission; Mixed dyslipidemia; Screening for deficiency anemia; Screening for thyroid disorder; 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 No 12/04/2022 Sexually Active Control Partners Comments Yes Comments No Sex and Gender Information Value Date Recorded Sex Assigned at Not on file Legal Sex Female 7:32 PM EDT Gender Identity Not on file Sexual Orientation Not on file documented as of this encounter Last Filed Vital Signs Vital Sign Reading Time Taken Comments Blood Pressure 118/64 07/26/2024 8:06 AM EDT Pulse 72 07/26/2024 8:06 AM EDT Temperature 36.2 C (97.2 F) 07/26/2024 8:06 AM EDT Respiratory Rate 16 07/26/2024 8:06 AM EDT Oxygen Saturation 97% 07/26/2024 8:06 AM EDT Inhaled Oxygen Concentration - - Weight 84.8 kg (187 lb) 07/26/2024 8:06 AM EDT Height 160 cm (5' 3 ) 07/26/2024 8:06 AM EDT Body Mass Index 33.13 07/26/2024 8:06 AM EDT documented in this encounter Functional Status * Is the person deaf or does he/she have serious difficulty hearing? Answer Date of Assessment Author No 10/27/2023 7:59 AM EDT Mast, RMA * Is the person blind or does he/she have serious difficulty seeing even when wearing glasses? Answer Date of Assessment Author No 10/27/2023 7:59 AM EDT Camp ana maría, RMA * Does this person have serious difficulty walking or climbing stairs? Answer Date of Assessment Author No 10/27/2023 7:59 AM EDT Camp ana maría, RMA * Does this person have difficulty dressing or bathing? Answer Date of Assessment Author No 10/27/2023 7:59 AM EDT [place] ana maría, RMA * Because of a physical, mental or emotional condition, does this person have difficulty doing errands alone such as visiting a doctor's office or shopping? Answer Date of Assessment Author No 10/27/2023 7:59 AM EDT Camp ana maría, RMA documented as of this encounter Mental Status * Because of a physical, mental or emotional condition, does this person have serious difficulty concentrating, remembering or making decisions? Answer Entry Date Author No 10/27/2023 7:59 AM EDT Camp ana maría, RMA documented in this encounter Ordered Prescriptions Prescription Sig Dispense Quantity Refills Last Filled Start Date End Date flash glucose sensor (FREESTYLE CHANA 14 DAY SENSOR) [facility] KitIndications:Typ e 1 diabetes mellitus with stable proliferative diabetic retinopathy, left eye (HCC) USE ONE SENSOR EVERY 14 DAYS FOR CONTINUEOUS GLUCOSE MONITORING 2 Kit 11 07/26/2024 venlafaxine (EFFEXOR-XR) 37.5 mg Oral Capsule, Sust. Release 24 hrIndications:Recu rrent major depressive disorder, in full remission Take 1 Capsule by mouth daily. 90 Capsule 3 07/26/2024 documented in this encounter Progress Notes * Parish Anaya DO - 07/26/2024 8:20 AM EDTAssociated Problem(s): Recurrent major depressive disorder, in full remission Goal: achieve mental health wellness where ADLs, family, social and work relationships are optimal Depression Screen Score: Addressed: - Current stressors contributing to sx explored and discussed Compliance: - compliant with medications Advice: - remain compliant with follow up and medications Medication Management: - medication management decisions took place at today's visit (see orders) - responding as expected Orders: venlafaxine (EFFEXOR-XR) 37.5 mg Oral Capsule, Sust. Release 24 hr; Take 1 Capsule by mouth daily. * Parish Anaya DO - 07/26/2024 8:20 AM EDTAssociated Problem(s): Type 1 diabetes mellitus with diabetic neuropathy (HCC) Orders: COMPREHENSIVE METABOLIC PANEL; Future HEMOGLOBIN A1C; Future * Parish Anaya DO - 07/26/2024 8:20 AM EDTAssociated Problem(s): Mixed dyslipidemia Orders: LIPID PANEL REFLEX; Future * Parish Anaya DO - 07/26/2024 8:20 AM EDT Vitals: 07/26/24 0806 BP: 118/64 Pulse: 72 Resp: 16 Temp: 97.2 ??F (36.2 ??C) SpO2: 97% Weight: 187 lb (84.8 kg) Height: 5' 3 (1.6 m) Body mass index is 33.13 kg/m??. SUBJECTIVE: Chief Complaint Patient presents with Medicare Annual Wellness Hyperlipidemia Diabetes Anxiety HPI: Medicare Wellness Assessment: Subsequent Annual Medicare Wellness Assessment. Risk Assessments: Fall Risk Assessment Has the patient had any fall with injury in the past year?: (!) Yes Has the patient had 2 or more falls in the past year?: No Is the patient able to sit without assistance?: Yes Is the patient able to get up without assistance?: Yes Does the patient have a difficult time ambulating when first getting up?: No Does the patient have rugs or runners in the home?: No Does the patient have grab bars in the bathroom?: Yes Does the patient have stairs inside or outside of the home?: No (In Office Assessment Only): Is the patient able to ambulate without assistance/device and with a gait steady?: Yes (In Office Assessment Only): TUG test: Time patient going from sitting to standing, walk 10 feet, return to chair and sit. Record time. : Less or equal to 12 seconds Functional Status Assessment Functional Level: self care Functional Mobility Assessment: independent w/o assist device Assessment of transportation needs: (!) dependent on other/public transportation Functional Activities of Daily Living Limitations: No issues Bladder: Do you have issues with your bladder, such as urgency or leaking urine?: No issues Does the patient report issues or concerns regarding hearing?: No Activities of Daily Living Assistive Device Assessment Assistive Devices: Eyeglasses Rx Osteoporosis Screening Assessment Has the patient had a DEXA (Bone Density) scan in the past 2 years?: (!) No No results found for this or any previous visit. Abnormal Pains Assessment Excluding what you would consider normal aches and pains for your age and medical condition, do youhave any unusual or worrisome pains?: No Opiate Screening Are you currently on opiate or narcotic medications?: No PHQ Depression Screening Results Little interest or pleasure in doing things: 0 Feeling down, depressed, or hopeless: 0 PHQ-2 Total Score: 0 PHQ-9 Total Score: 0 Advanced Directive Evaluation Does the patient have an Advance Directive?: (!) No Advance Care Planning Guide Given?: (!) No (For Dementia Screening below can use either AD-8 or Mini Cog. Doesn't require both.) AD-8 Dementia Screening tool results Problems with judgement: 0 Less interest in hobbies/activities: 0 Repeats the same things over and over: 0 Trouble learning how to use a tool, appliance or gadget: 0 Forgets correct month or year: 0 Trouble handling complicated financial affairs: 0 Trouble remembering appointments: 0 Daily problems with thinking and/or memory: 0 Total AD8 score:: 0 Mini Cog Dementia Screening tool results Dementia: Negative Welcome to Medicare Vision Screening Eye Exam : Both eye: 20/20 Patient Instructions AWV findings and Plan of Care: Recommendations as part of the Personal Plan of Care based on risk screening assessments are: Fall Risk Assessment: Fall Risk Assessment: negative - re-assess in 1 year Functional Status/Social Determinates of Health: stable, no issues, re-assess in 1 year Depression Screening: negative - re-assess in 1 year Dementia Screening: negative - recommend re-assess in 1 year Vaccinations: up to date Exercise/Activity: recommended continuing current Recommended follow up annually for Medicare Annual Wellness Visit. Good preventative health care is important in reducing morbidity and mortality. I recommend exercise regularly as tolerated focusing on strength and balance. I recommend a balanced diet focusing on fruits, veggies, and lean meats. I recommend avoiding having rugs, runners, or other loose trip hazards in the home as these increase fall risk. I recommend installing grab bars in the bathrooms close to toilets, in tubs, and in showers as these are common areas for falls when transitioning from wet surfaces to dry surfaces, or visa versa. This is also an area of the home that is high risk for falls at night. I encourage having an Advanced Directives. This is something we recommend you have on file at home,as well as something that we should have on file in our records. If we don't have a copy of your current Advanced Directive, please bring a copy to your next visit. If you have a power of gaming investigator orsgeorgiaogate, we should also have a copy on file. I encourage candid discussion with your family on your wishes in the event that you are incapacitated and unable to participate in direct medical decision making. It is important to stay up to date on recommended vaccinations, please see the health maintenance topics due below and if we have not completed one of those topics today, please consider completing as part of your wellness plan this year. Below are other health maintenance topics that are recommended to be closed at your earliest opportunity. You may notice that some of these were addressed in the office today and will show as resolved in your MyChart account soon. Health Maintenance Due Topic Date Due Hepatitis B Vaccine (1 of 3 - 19+ 3-dose series) Never done Pneumococcal Vaccine 50+ (2 of 2 - PCV) 10/05/2018 Cervical Cancer Screening 12/16/2020 Zoster (1 of 2) Never done COVID-19 Vaccine (2023-) Never done Hemoglobin A1c 04/28/2024 As part of today's visit the components of the Medicare wellness assessment were completed. These components included reviewing the information available in the risk screening questionnaire that was administered by ancillary staff either today or prior to today's visit (pre-visit planning) and recorded in the Medicare Wellness Assessment Flowsheet in the EMR. I have reviewed the data in regards to fall risk, activities of daily living/functional status, depression screening, dementia screening,and outstanding Health Maintenance topics and edited where necessary. The staff has reviewed and updated the past medical history, social history, family history, allergies, medications, and care team information during the standard rooming process. I have also reviewed this data as part of today'svisit. Below are the findings, recommendations, and Personal Plan of Care. The patient received a copy of their Personal Plan of Care including health maintenance topics thatare recommended to be completed and this can be noted in the after visit summary. The AVS is provided to the patient digitally through their [employer] account or with a paper copy if the patient doesn't have an active MyChart Account. A copy of today's progress note with recommendations below is alsoavailable electronically for patients with an active [employer] account per the Federal Cures Act. TheAVS also contains additional patient education if appropriate on topics common to wellness and their plan of care. History Reviewed: No results found. No results found for this visit on 07/26/24. 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[facility]) Recurrent major depressive disorder, in full remission Thrombocytopenia Type 1 diabetes mellitus with diabetic neuropathy ([facility]) Mild nonproliferative diabetic retinopathy of both eyes without macular edema associated with type 1 diabetes mellitus ([facility]) DAVID (stress urinary incontinence, female) Pessary maintenance Cigarette nicotine dependence without complication Uncontrolled type 1 diabetes mellitus with hypoglycemia without coma ([facility]) Chronic idiopathic constipation Gastroesophageal reflux disease without esophagitis Closed right ankle fracture, initial encounter Acute postoperative anemia due to expected blood loss Vitamin D deficiency 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 Mild nonproliferative diabetic retinopathy associated with type 2 diabetes mellitus ([facility]) Past Medical History: Diagnosis Date Carpal tunnel syndrome, right 11/2014 Chronic headaches Depression not anymore Diabetes mellitus ([facility]) Diabetic peripheral neuropathy ([facility]) Edema feet and legs Epilepsy, 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[facility]) Hyperlipidemia better now MS (multiple sclerosis) ([facility]) Dr Ferguson Restless leg syndrome Urinary tract infection 12/21/2014 taking antibiotic until 12/22/2014 Past Surgical History: Procedure Laterality Date CARPAL TUNNEL RELEASE Right 12/27/2014 RIGHT CARPAL TUNNEL RELEASE; Surgeon: Rashi Alvarez MD; Location: [facility]; Service: Hand FEMUR FRACTURE SURGERY Right sub trochanteric femus fracture [facility] SINUS SURGERY ~2000 TIBIA FRACTURE SURGERY Right 04/23/2019 OPEN REDUCTION INTERNAL FIXATION RIGHT TIBIA/FIBULA FRACTURE; Surgeon: Maximiliano Gaytan MD; Location: [facility]; Service: Orthopedics TONSILLECTOMY as a child Allergies Allergen Reactions Chantix [Varenicline] Nausea Only Keflex [Cephalexin] Nausea And Vomiting Current Outpatient Medications on File Prior to Visit Medication Sig Dispense Refill Acetone, Urine, Test (KETONE URINE TEST) Misc Strip Use when blood sugar is above 240 and on sick days. 1 box 11 Alcohol Swabs (ALCOHOL PREP SWABS) Top Pads, Medicated Use as directed 600 Each 1 atorvastatin (LIPITOR) 20 mg Oral Tablet Take 1 Tablet by mouth daily. 90 Tablet 3 BD EDGAR 2ND GEN PEN NEEDLE 32 gauge x 5/32 [facility] Needle USE ONE PEN NEEDLE THREE TIMES DAILY BEFOREMEAL(S) 100 Each 0 Cholecalciferol, Vitamin D3, 2,000 unit Oral Capsule Take 1 Cap by mouth daily. 90 Cap 4 enoxaparin (LOVENOX) SubQ Syringe 30 mg/m0.3 mL Subcutaneous (Inject under the skin) every 12 hours. (Patient not taking: Reported on 07/26/2024) flash glucose scanning reader (FREESTYLE CHANA 14 DAY READER) [facility] Use for continuous glucose monitoring. 1 Each 0 flash glucose sensor (FREESTYLE CHANA 14 DAY SENSOR) [facility] Kit USE ONE SENSOR EVERY 14 DAYS FOR CONTINUEOUS GLUCOSE MONITORING 2 Kit 11 fUROsemide (LASIX) 20 mg Oral Tablet Take 1 tablet by mouth once daily 90 Tablet 3 glucagon, human recombinant, (GLUCAGON EMERGENCY KIT, HUMAN,) 1 mg Inj Kit Use as directed for severe hypoglycemia. 1 Kit 5 ibuprofen (ADVIL;MOTRIN) 200 mg Oral Tablet Take 400 mg by mouth nightly as needed for Pain. insulin aspart U-100 (NOVOLOG FLEXPEN U-100 INSULIN) 100 unit/mL (3 mL) SubQ Insulin Pen Inject persliding scale, before meals. Max 30 units daily. 45 mL 0 insulin aspart U-100 (NOVOLOG FLEXPEN U-100 INSULIN) 100 unit/mL (3 mL) SubQ Insulin Pen Take at meals as directed at office visit; may take up to 30 units total daily dose 3 Syringe 11 insulin degludec (TRESIBA FLEXTOUCH U-100) 100 unit/mL (3 mL) SubQ Insulin Pen Inject 15 units daily 15 mL 0 Lancets [facility] 1 Stick by [facility].(Non-Drug; Combo Route) route 4 times daily. DX E10.40 please give what is covered by patient's insurance 360 Each 3 levETIRAcetam (KEPPRA) 500 mg Oral Tablet Take 1 Tablet by mouth 2 times daily. 60 Tablet 6 losartan (COZAAR) 50 mg Oral Tablet Take 1 Tablet by mouth daily. 90 Tablet 3 Melatonin 3 mg Oral Tablet Take 9 mg by mouth nightly as needed. nortriptyline (PAMELOR) 50 mg Oral Capsule Take 2 Capsules by mouth nightly. 60 Capsule 6 tiZANidine (ZANAFLEX) 4 mg Oral Tablet Take 1.5 Tablets by mouth 3 times daily. 135 Tablet 6 venlafaxine (EFFEXOR) 75 mg Oral Tablet Take 0.5 Tablets by mouth daily. 45 Tablet 3 VUMERITY 231 mg Oral Capsule, Delayed Release(E.C.) TAKE 2 CAPSULES BY MOUTH 2 TIMES A DAY 120 Capsule 11 No current facility-administered medications on file prior to visit. Social History Socioeconomic History Marital status: Spouse name: None Number of children: None Years of education: None Highest education level: None Tobacco Use Smoking status: Former Current packs/day: 0.00 Average packs/day: 0.3 packs/day for 32.1 years (8.0 ttl pk-yrs) Types: Cigarettes Start date: 1989 Quit date: 05/01/2021 Years since quittin.2 Smokeless tobacco: Never Tobacco comments: vapes Vaping Use Vaping status: Never Used Substance and Sexual Activity Alcohol use: Not Currently Comment: occasion, none for 1 year Drug use: No Sexual activity: Yes Social Drivers of Health Financial Resource Strain: Medium Risk (12/08/2023) Overall Financial Resource Strain (CARDIA) Difficulty of Paying Living Expenses: Somewhat hard Food Insecurity: No Food Insecurity (12/04/2022) Hunger Vital Sign Worried About Running Out of Food in the Last Year: Never true Ran Out of Food in the Last Year: Never true Transportation Needs: No Transportation Needs (12/08/2023) PRAPARE - Transportation Lack of Transportation (Medical): No Lack of Transportation (Non-Medical): No Physical Activity: Sufficiently Active (12/08/2023) Exercise Vital Sign Days of Exercise per Week: 7 days Minutes of Exercise per Session: 30 min Stress: Stress Concern Present (12/08/2023) [employer] [facility] [employer] [facility] - Occupational Stress Questionnaire Feeling of Stress : To some extent Housing Stability: Unknown (12/04/2022) Housing Stability Vital Sign Unable to Pay for Housing in the Last Year: No Unstable Housing in the Last Year: No Family History Problem Relation Age of Onset Diabetes Father Diabetes Maternal Uncle Breast Cancer Paternal Aunt Diabetes Paternal Grandmother Seizures Brother Other (Stiff person syndrome) Brother Anesth Problems Neg Hx Immunization History Administered Date(s) Administered Influenza Patient Reported 12/15/2014 Influenza Seasonal Injectable 12/15/2014, 12/23/2023 Influenza Vaccine Quadrivalent 02/12/2014, 12/15/2017 Influenza Vaccine Quadrivalent PF 12/20/2015 Influenza Vaccine, Unspecified Formulation 03/05/2011, 01/25/2012, 12/15/2014 Influenza Virus Vaccine Quadrivalant, Flublok 12/09/2018, 01/24/2021, 01/07/2022, 12/04/2022 Pneumococcal Polysaccharide 23 Valent 10/05/2017 Tdap 12/28/2014, 12/30/2014 Health Maintenance Topic Date Due Hepatitis B Vaccine (1 of 3 - 19+ 3-dose series) Never done Pneumococcal Vaccine 50+ (2 of 2 - PCV) 10/05/2018 Cervical Cancer Screening 12/16/2020 Zoster (1 of 2) Never done COVID-19 Vaccine ( - season) Never done Hemoglobin A1c 04/28/2024 Lipids 10/26/2024 Wellness Exam Medicare 10/27/2024 DTaP/TDaP/Td (3 - Td or Tdap) 12/30/2024 Microalbuminuria 03/03/2025 Colon Cancer Screening 04/22/2025 Breast Cancer Screening 11/23/2025 Diabetic Eye Exam 01/13/2026 Influenza Vaccine Completed Meningococcal B Vaccine Aged Out Patient Care Team: Parish Anaya DO as PCP - General (Family Medicine) Selin Belcher MD (Internal Medicine-Endocrinology, Diabetes & Metabolism) Additional issues addressed today: Diabetes: Kelli following up today for diabetes. Current symptoms/problems include none. Current monitoring regimen: none Home blood sugar records: trend: fluctuating a lot Any episodes of hypoglycemia? no On insulin? No Weight trend: Body mass index is 33.13 kg/m??. Wt Readings from Last 3 Encounters: 07/26/24 187 lb (84.8 kg) 04/28/24 182 lb 3.2 oz (82.6 kg) 04/16/24 183 lb (83 kg) A1c trend: Lab Results Component Value Date HGBA1C 9.9 (H) 10/27/2023 HGBA1C 8.4 (H) 05/05/2023 HGBA1C 9.4 (H) 12/06/2022 Renal trend: Lab Results Component Value Date GFRAFRAM 122 02/14/2021 GFRAFRAM 129 11/10/2019 GFRAFRAM 133 09/15/2019 Lab Results Component Value Date GFRNONAFRAM 106 02/14/2021 GFRNONAFRAM 112 11/10/2019 GFRNONAFRAM 116 09/15/2019 Lab Results Component Value Date GFRCKDEPI 100 10/27/2023 GFRCKDEPI 109 05/05/2023 GFRCKDEPI 105 12/24/2022 Lipid trend: Lab Results Component Value Date LDLCALC 64 10/27/2023 Hyperlipidemia: Last Lipid and liver panel has been reviewed. Current cholesterol goals discussed with patient. Thepatient is on a lipid lowering agent. The patient currently is on a statin. No complaints of side effects from medication. The patient is not having issues maintaining compliance with the previously outlined care plan. The patient does not report significant side effects of current medications/treatments. Diet has been reviewed with patient. Hypertension - Patient's blood pressure has been running well. Medications are working well withoutside effects. Patient reports no symptoms of chest pain, headaches or orthostasis. Prior BP readings reviewed during this visit. BP Readings from Last 3 Encounters: 07/26/24 118/64 04/28/24 122/74 04/16/24 134/80 Hyperlipidemia - Pt has done well since last ov. No complaints of side effects from medication. Diet has been reviewed with patient. Last cholesterol and liver panel has been reviewed. Current cholesterol goals discussed with patient. Lab Results Component Value Date HDL 63 10/27/2023 HDL 66 05/05/2023 HDL 59 12/06/2022 Lab Results Component Value Date LDLCALC 64 10/27/2023 LDLCALC 53 05/05/2023 LDLCALC 50 12/06/2022 Lab Results Component Value Date TRIG 62 10/27/2023 TRIG 85 05/05/2023 TRIG 106 12/06/2022 Lab Results Component Value Date ALT 33 10/27/2023 AST 35 10/27/2023 Review of Systems Constitutional: Negative. HENT: Negative. Eyes: Negative. Respiratory: Negative. Cardiovascular: Negative. Gastrointestinal: Negative. Endocrine: Negative. Genitourinary: Negative. Musculoskeletal: Negative. OBJECTIVE: Physical Exam Vitals and nursing note reviewed. Constitutional: Appearance: She is well-developed. HENT: Head: Normocephalic. Right Ear: Tympanic membrane and external ear normal. Left Ear: External ear normal. Eyes: Conjunctiva/sclera: Conjunctivae normal. Pupils: Pupils are equal, round, and reactive to light. Cardiovascular: Rate and Rhythm: Normal rate and regular rhythm. Heart sounds: Normal heart sounds. Pulmonary: Effort: Pulmonary effort is normal. Breath sounds: Normal breath sounds. Abdominal: General: Bowel sounds are normal. Palpations: Abdomen is soft. Musculoskeletal: General: Normal range of motion. Cervical back: Normal range of motion and neck supple. Skin: General: Skin is warm. Neurological: Mental Status: She is alert and oriented to person, place, and time. Psychiatric: Mood and Affect: Mood normal. Behavior: Behavior normal. Thought Content: Thought content normal. Assessment & Plan Recurrent major depressive disorder, in full remission Goal: achieve mental health wellness where ADLs, family, social and work relationships are optimal Depression Screen Score: Addressed: - Current stressors contributing to sx explored and discussed Compliance: - compliant with medications Advice: - remain compliant with follow up and medications Medication Management: - medication management decisions took place at today's visit (see orders) - responding as expected Orders: venlafaxine (EFFEXOR-XR) 37.5 mg Oral Capsule, Sust. Release 24 hr; Take 1 Capsule by mouth daily. 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 continue insulin.. Check labs Well adult exam Check labs. Meds refilled.. Follow up with endo Follow up in 6 months documented in this encounter Miscellaneous Notes * Addendum Note - Sachi Craig RMA - 07/26/2024 8:20 AM EDTAddended by: SACHI CRAIG on: 07/26/2024 09:06 AM Modules accepted: Orders documented in this encounter Plan of Treatment [...] documented as of this encounter Results * THYROID STIMULATING HORMONE (08/27/2024 7:33 AM EDT) TSH 3.180 0.270 - 4.200 mcIU/mL 08/27/2024 8:53 AM EDT [facility] Blood VENOUS BLOOD / Unknown Venipuncture / Unknown 08/27/2024 7:33 AM EDT 08/27/2024 7:33 AM EDT Narrative [facility] - 08/27/2024 8:53 AM EDT Ingestion of caden doses of biotin (>5 mg/day) taken within 8 hours of drawing blood sample can interfere with this immunoassay test. us Viral Anaya V, DO CHEMISTRY ORDERABLES Final Res ult [facility] [address] [facility] , [place] [address] * LIPID PANEL REFLEX (08/27/2024 7:33 AM EDT) Cholesterol 133 <200 mg/dL 08/27/2024 8:53 AM EDT [facility] Comment: < 200 Desirable 200 - 239 Borderline High >= 240 High Triglyceride 88 <150 mg/dL 08/27/2024 8:53 AM EDT [facility] Comment: < 150 Normal 150 - 199 Borderline High 200 - 499 High >= 500 Very High HDL 56 >=40 mg/dL 08/27/2024 8:53 AM EDT [facility] Comment: > 60 Optimal 40 - 60 Acceptable < 40 Low LDL Calculated 60 <100 mg/dL 08/27/2024 8:53 AM EDT [facility] Comment: < 100 Optimal 100 - 129 Near or above optimal 130 - 159 Borderline High 160 - 189 High >= 190 Very High The National Institutes of Health (NIH) equation is used for all lipid panels that report calculated LDL (LDL-C). Non-HDL-C Calculated 77 <=129 mg/dL 08/27/2024 8:53 AM EDT [facility] Comment: <130 Desirable 130-159 Above Desirable 160-189 Borderline High 190-219 High >= 220 Very High Fasting Specimen? Yes None 025 8:53 AM EDT [facility] Blood VENOUS BLOOD / Unknown Venipuncture / Unknown 08/27/2024 7:33 AM EDT 08/27/2024 7:33 AM EDT us Viral Anaya V, DO CHEMISTRY ORDERABLES Final Res ult [facility] [address] [facility] , [place] [address] * (ABNORMAL) COMPREHENSIVE METABOLIC PANEL (08/27/2024 7:33 AM EDT) Sodium 140 136 - 145 mmol/L 08/27/2024 8:54 AM EDT [facility] Potassium 4.7 3.5 - 5.0 mmol/L 08/27/2024 8:54 AM EDT [facility] Chloride 105 98 - 107 mmol/L 08/27/2024 8:54 AM EDT [facility] Total CO2 28 22 - 29 mmol/L 08/27/2024 8:54 AM EDT [facility] Anion Gap 7 7 - 16 mmol/L 08/27/2024 8:54 AM EDT [facility] Calcium 9.5 8.6 - 10.4 mg/dL 08/27/2024 8:54 AM EDT [facility] Glucose Lvl 35(LL) 70 - 99 mg/dL 08/27/2024 8:54 AM EDT [facility] BUN 18 6 - 20 mg/dL 08/27/2024 8:54 AM EDT [facility] Creatinine 0.65 0.51 - 1.30 mg/dL 08/27/2024 8:54 AM EDT [facility] Albumin 4.1 3.5 - 5.2 gm/dL 08/27/2024 8:54 AM EDT [facility] Total Protein 7.1 6.4 - 8.3 gm/dL 08/27/2024 8:54 AM EDT [facility] Bili Total 0.2 0.2 - 1.3 mg/dL 08/27/2024 8:54 AM EDT [facility] ALT 24 <=41 U/L 08/27/2024 8:54 AM EDT [facility] AST 18 <=40 U/L 08/27/2024 8:54 AM EDT [facility] Alk Phos 114 36 - 123 U/L 08/27/2024 8:54 AM EDT [facility] eGFR (CKD-EPIcr 2020) 106 >=60 mL/min/1.7 3 m2 08/27/2024 8:54 AM EDT [facility] Comment:Estimated GFR was ca lculated using the CKD-EPIcr (2020) equation refit without race. The equation is recommended by the National Kidney Foundation - [place] Society of Nephrology Task Force. Blood VENOUS BLOOD / Unknown Venipuncture / Unknown 08/27/2024 7:33 AM EDT 08/27/2024 7:33 AM EDT us Viral Anaya V, DO CHEMISTRY ORDERABLES Final Res ult [facility] [address] [facility] , [place] [address] * (ABNORMAL) CBC WITH DIFF (08/27/2024 7:33 AM EDT) WBC 6.2 3.7 - 10.3 x10(3)/mcL 08/27/2024 7:56 AM EDT [facility] RBC 3.70(L) 3.90 - 5.20 x10(6)/mcL 08/27/2024 7:56 AM EDT [facility] Hgb 11.2 11.2 - 15.7 g/dL 08/27/2024 7:56 AM EDT [facility] Hct 34.6 34.0 - 45.0 % 08/27/2024 7:56 AM EDT [facility] MCV 93.5 80.0 - 100.0 fL 08/27/2024 7:56 AM EDT [facility] MCH 30.3 26.0 - 34.0 pg 08/27/2024 7:56 AM EDT [facility] MCHC 32.4 30.7 - 35.5 g/dL 08/27/2024 7:56 AM EDT [facility] RDW 12.1 <=14.9 % 08/27/2024 7:56 AM EDT [facility] Platelet 158 155 - 369 x10(3)/mcL 08/27/2024 7:56 AM EDT [facility] MPV 11.6 8.8 - 12.5 fL 08/27/2024 7:56 AM EDT [facility] Neut Percent 60.0 % 08/27/2024 7:56 AM EDT [facility] Comment:Neutrophils equals s egs plus bands Imm Gran% 0.3 % 08/27/2024 7:56 AM EDT [facility] Comment:Automated count of m etamyelocytes, myelocytes and promyelocytes. Lymph Percent 26.5 % 08/27/2024 7:56 AM EDT [facility] [place] Percent 9.1 % 08/27/2024 7:56 AM EDT [facility] Eos Percent 2.8 % 08/27/2024 7:56 AM EDT [facility] Baso Percent 1.3 % 08/27/2024 7:56 AM EDT [facility] Neut # 3.7 1.6 - 6.1 x10(3)/mcL 08/27/2024 7:56 AM EDT [facility] Comment:Neutrophils equals s egs plus bands IMMGRAN# 0.0 0.0 - 0.1 x10(3)/mcL 08/27/2024 7:56 AM EDT [facility] Comment:Automated count of m etamyelocytes, myelocytes and promyelocytes. An absolute IG <0.1 is reported as 0.0. Lymph # 1.6 1.2 - 3.9 x10(3)/mcL 08/27/2024 7:56 AM EDT [facility] [place] # 0.6 0.3 - 0.9 x10(3)/mcL 08/27/2024 7:56 AM EDT [facility] Eos# 0.2 0.0 - 0.5 x10(3)/mcL 08/27/2024 7:56 AM EDT [facility] Baso # 0.1 0.0 - 0.1 x10(3)/mcL 08/27/2024 7:56 AM EDT [facility] Blood VENOUS BLOOD / Unknown Venipuncture / Unknown 08/27/2024 7:33 AM EDT 08/27/2024 7:33 AM EDT us Viral Anaya V, DO HEMATOLOGY ORDERABLES Final Re sult [facility] [address] [facility] , [place] [address] documented in this encounter Visit Diagnoses Diagnosis Type 1 diabetes mellitus with diabetic neuropathy (HCC)- Primary Type I (juvenile type) diabetes mellitus with neurological manifestations, not stated as uncontrolled Recurrent major depressive disorder, in full remission Mixed dyslipidemia Mixed hyperlipidemia Screening for deficiency anemia Screening for other and unspecified deficiency anemia Screening for thyroid disorder 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 Release 24 hrIndications:Recurrent major depressive disorder, in full remission Take 1 Capsule by mouth daily. 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
--- OUTSIDE RECORDS SUMMARY | 2024-08-27 06:20 | XMS_ITS | Encounter Summary ---
Author Organization [facility] Address [address] [facility] [place] [address] Care Team Providers Care Blueprinter Name Role Phone Selin Belcher MD Unavailable [phone] Héctor Espinoza DO, Viral Primary Care Provider [phone] Encounter Details Date Type Department Care Team (Latest Contact Info) Description 08/27/2024 6:20 AM EDT - 08/27/2024 11:59 PM EDT Hospital Encounter [facility] [address] [place] [id number] Type 1 diabetes mellitus with diabetic neuropathy (HCC); Screening for deficiency anemia; Mixed dyslipidemia; Screening for thyroid disorder Discharge Disposition: Home or Self Care Social History Tobacco Use Types Packs/Day Years [...] Date Recorded PHQ-2 Total Score 0 10/27/2023 [facility] [place] [facility] Occupat ional Health - Occupational Stress [...] place to sleep or slept in a long-term (including now)? No 12/04/2022 Sexually Active Control Partners Comments Yes Comments No Sex and Gender Information Value Date Recorded Sex Assigned at Not on file Legal Sex Female 7:32 PM EDT Gender Identity Not on file Sexual Orientation Not on file documented as of this encounter Functional Status * Is the person deaf or does he/she have serious difficulty hearing? Answer Date of Assessment Author No 10/27/2023 7:59 AM EDDasilva RMA * Is the person blind or does he/she have serious difficulty seeing even when wearing glasses? Answer Date of Assessment Author No 10/27/2023 7:59 AM EDT Mast RMA * Does this person have serious difficulty walking or climbing stairs? Answer Date of Assessment Author No 10/27/2023 7:59 AM EDDasilva RMA * Does this person have difficulty dressing or bathing? Answer Date of Assessment Author No 10/27/2023 7:59 AM EDDasilva RMA * Because of a physical, mental or emotional condition, does this person have difficulty doing errands alone such as visiting a doctor's office or shopping? Answer Date of Assessment Author No 10/27/2023 7:59 AM [place] RMA documented as of this encounter Mental Status * Because of a physical, mental or emotional condition, does this person have serious difficulty concentrating, remembering or making decisions? Answer Entry Date Author No 10/27/2023 7:59 AM [place] RMA documented in this encounter Medications at Time of Discharge Acetone, Urine, Test (KETONE URINE TEST) [facility] Strip Use when blood sugar is above 240 and on sick days. 1 box 11 02/06/2016 Alcohol Swabs (ALCOHOL PREP SWABS) Top Pads, Medicated Use as directed 600 Each 1 08/29/2015 atorvastatin (LIPITOR) 20 mg Oral TabletIndications: Mixed dyslipidemia,PVD (peripheral vascular disease) Take 1 Tablet by mouth daily. 90 Tablet 3 04/29/2024 BD EDGAR 2ND GEN PEN NEEDLE 32 gauge x 5/32 [facility] Needle USE ONE PEN NEEDLE THREE TIMES DAILY BEFORE MEAL(S) 100 Each 03/28/2021 Cholecalciferol, Vitamin D3, 2,000 unit Oral CapsuleIndications :Multiple sclerosis, relapsing-remittin g (HCC) Take 1 Cap by mouth daily. 90 Cap 4 04/10/2016 enoxaparin (LOVENOX) SubQ Syringe 30 mg/m0.3 mL Subcutaneous (Inject under the skin) every 12 hours. flash glucose scanning reader (FREESTYLE CHANA 14 DAY READER) [facility] Use for continuous glucose monitoring. 1 Each 10/30/2018 flash glucose sensor (FREESTYLE CHANA 14 DAY SENSOR) [facility] KitIndications:Typ e 1 diabetes mellitus with stable proliferative diabetic retinopathy, left eye ([facility]) USE ONE SENSOR EVERY 14 DAYS FOR CONTINUEOUS GLUCOSE MONITORING 2 Kit 11 07/26/2024 fUROsemide (LASIX) 20 mg Oral TabletIndications: Peripheral edema Take 1 tablet by mouth once daily 90 Tablet 3 04/29/2024 glucagon, human recombinant, (GLUCAGON EMERGENCY KIT, HUMAN,) 1 mg Inj Kit Use as directed for severe hypoglycemia. 1 Kit 5 11/15/2015 ibuprofen (ADVIL;MOTRIN) 200 mg Oral Tablet Take 400 mg by mouth nightly as needed for Pain. insulin aspart U-100 (NOVOLOG FLEXPEN U-100 INSULIN) 100 unit/mL (3 mL) SubQ Insulin Pen inject per sliding scale before each meal 45 mL 08/26/2024 12/28/19 25 insulin aspart U-100 (NOVOLOG FLEXPEN U-100 INSULIN) 100 unit/mL (3 mL) SubQ Insulin PenIndications:Typ e 1 diabetes mellitus with diabetic neuropathy (HCC) Take at meals as directed at office visit; may take up to 30 units total daily dose 3 Syringe 11 06/14/2020 insulin degludec (TRESIBA FLEXTOUCH U-100) 100 unit/mL (3 mL) SubQ Insulin Pen Inject 15 units daily. 45 mL 08/26/2024 12/28/19 25 Lancets [facility] MiscIndications:Ty pe 1 diabetes mellitus with diabetic neuropathy (HCC) 1 Stick by Mis.(Non-Drug; Combo Route) route 4 times daily. DX E10.40 please give what is covered by patient's insurance 360 Each 3 04/21/2018 levETIRAcetam (KEPPRA) 500 mg Oral TabletIndications: Muscle spasticity,Multipl e sclerosis, relapsing-remittin g (HCC),Epilepsy, focal (HCC) Take 1 Tablet by mouth 2 times daily. 60 Tablet 9 08/24/2024 losartan (COZAAR) 50 mg Oral TabletIndications: Essential hypertension,Type 1 diabetes mellitus with diabetic neuropathy (HCC) Take 1 Tablet by mouth daily. 90 Tablet 3 04/26/2024 Melatonin 3 mg Oral Tablet Take 9 mg by mouth nightly as needed. nortriptyline (PAMELOR) 50 mg Oral CapsuleIndications :Type 1 diabetes mellitus with diabetic neuropathy (HCC) Take 2 Capsules by mouth nightly. 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 135 Tablet 6 04/28/2024 venlafaxine (EFFEXOR) 75 mg Oral Tablet Take 0.5 Tablets by mouth daily. 45 Tablet 3 04/26/2024 venlafaxine (EFFEXOR-XR) 37.5 mg Oral Capsule, Sust. Release 24 hrIndications:Recu rrent major depressive disorder, in full remission Take 1 Capsule by mouth daily. 90 Capsule 3 07/26/2024 [facility] 231 mg Oral Capsule, Delayed Release(E.C.)Indic ations:UTI (urinary tract infection), uncomplicated TAKE 2 CAPSULES BY MOUTH 2 TIMES A DAY 120 Capsule 11 03/30/2024 insulin aspart U-100 (NOVOLOG FLEXPEN U-100 INSULIN) 100 unit/mL (3 mL) SubQ Insulin Pen Inject per sliding scale, before meals. Max 30 units daily. 45 mL 05/24/2024 09/22/19 insulin degludec (TRESIBA FLEXTOUCH U-100) 100 unit/mL (3 mL) SubQ Insulin Pen Inject 15 units daily 15 mL 05/24/2024 09/22/19 documented as of this encounter Discharge Disposition Disposition Code Departure Means Destination Home or Self Care documented in this encounter Plan of Treatment [...] Result Component 9.9(08/28/19 7:33 AM EDT) No NoriegaStefani, PATRICK documented as of this encounter Procedures Procedure Name Priority Date/Time Associated Diagnosis Comments LIPID PANEL REFLEX Routine 08/27/2024 7: 33 AM EDT Mixed dyslipidemia CBC WITH DIFF Routine 08/27/2024 7:33 AM EDT Screening for deficiency anemia THYROID STIMULATING HORMONE Routine 08/27/2024 7:33 AM EDT Screening for thyroid disorder HEMOGLOBIN A1C Routine 08/27/2024 7:33 AM EDT Type 1 diabetes mellitus with diabetic neuropathy (HCC) COMPREHENSIVE METABOLIC PANEL Routine 08/27/2024 7:33 AM EDT Type 1 diabetes mellitus with diabetic neuropathy (HCC) documented in this encounter Results * THYROID STIMULATING HORMONE (08/27/2024 7:33 AM EDT) TSH 3.180 0.270 - 4.200 mcIU/mL 08/27/2024 8:53 AM EDT [facility] Blood VENOUS BLOOD / Unknown Venipuncture / Unknown 08/27/2024 7:33 AM EDT 08/27/2024 7:33 AM EDT Narrative [facility] - 08/27/2024 8:53 AM EDT Ingestion of caden doses of biotin (>5 mg/day) taken within 8 hours of drawing blood sample can interfere with this immunoassay test. us Viral Anaya V, DO CHEMISTRY ORDERABLES Final Res ult [facility] 1 [facility] , [address] [place] [id number] * LIPID PANEL REFLEX (08/27/2024 7:33 AM EDT) Cholesterol 133 <200 mg/dL 08/27/2024 8:53 AM EDT [facility] Comment: < 200 Desirable 200 - 239 Borderline High >= 240 High Triglyceride 88 <150 mg/dL 08/27/2024 8:53 AM EDT [facility] Comment: < 150 Normal 150 - 199 Borderline High 200 - 499 High >= 500 Very High HDL 56 >=40 mg/dL 08/27/2024 8:53 AM EDT [facility] [employer] Comment: > 60 Optimal 40 - 60 Acceptable < 40 Low LDL Calculated 60 <100 mg/dL 08/27/2024 8:53 AM EDT [facility] [employer] Comment: < 100 Optimal 100 - 129 Near or above optimal 130 - 159 Borderline High 160 - 189 High >= 190 Very High The National Institutes of Health (NIH) equation is used for all lipid panels that report calculated LDL (LDL-C). Non-HDL-C Calculated 77 <=129 mg/dL 08/27/2024 8:53 AM EDT [facility] [employer] Comment: <130 Desirable 130-159 Above Desirable 160-189 Borderline High 190-219 High >= 220 Very High Fasting Specimen? Yes None 025 8:53 AM EDT [facility] [employer], [facility] Blood VENOUS BLOOD / Unknown Venipuncture / Unknown 08/27/2024 7:33 AM EDT 08/27/2024 7:33 AM EDT us Viral Anaya V, DO CHEMISTRY ORDERABLES Final Res ult [facility] [employer] [address] [facility] , [place] [address] * (ABNORMAL) COMPREHENSIVE METABOLIC PANEL (08/27/2024 7:33 AM EDT) Sodium 140 136 - 145 mmol/L 08/27/2024 8:54 AM EDT [facility] Potassium 4.7 3.5 - 5.0 mmol/L 08/27/2024 8:54 AM EDT [facility] Chloride 105 98 - 107 mmol/L 08/27/2024 8:54 AM EDT [facility] Total CO2 28 22 - 29 mmol/L 08/27/2024 8:54 AM EDT [facility] Anion Gap 7 7 - 16 mmol/L 08/27/2024 8:54 AM EDT [facility] Calcium 9.5 8.6 - 10.4 mg/dL 08/27/2024 8:54 AM EDT [facility] Glucose Lvl 35(LL) 70 - 99 mg/dL 08/27/2024 8:54 AM EDT [facility] BUN 18 6 - 20 mg/dL 08/27/2024 8:54 AM EDT [facility] Creatinine 0.65 0.51 - 1.30 mg/dL 08/27/2024 8:54 AM EDT [facility] Albumin 4.1 3.5 - 5.2 gm/dL 08/27/2024 8:54 AM EDT [facility] Total Protein 7.1 6.4 - 8.3 gm/dL 08/27/2024 8:54 AM EDT [facility] Bili Total 0.2 0.2 - 1.3 mg/dL 08/27/2024 8:54 AM EDT [facility], [facility] ALT 24 <=41 U/L 08/27/2024 8:54 AM EDT [facility] AST 18 <=40 U/L 08/27/2024 8:54 AM EDT [facility] Alk Phos 114 36 - 123 U/L 08/27/2024 8:54 AM EDT [facility], [facility] eGFR (CKD-EPIcr 2020) 106 >=60 mL/min/1.7 3 m2 08/27/2024 8:54 AM EDT [facility], [facility] Comment:Estimated GFR was ca lculated using the CKD-EPIcr (2020) equation refit without race. The equation is recommended by the National Kidney Foundation - [place] [employer] of Nephrology Task Force. Blood VENOUS BLOOD / Unknown Venipuncture / Unknown 08/27/2024 7:33 AM EDT 08/27/2024 7:33 AM EDT us Viral Anaya V, DO CHEMISTRY ORDERABLES Final Res ult [facility] 1 [facility] , [address] [place] [id number] * (ABNORMAL) CBC WITH DIFF (08/27/2024 7:33 AM EDT) [facility] WBC 6.2 3.7 - 10.3 x10(3)/mcL 08/27/2024 [...] 7:56 AM EDT [facility] [place] Percent 9.1 % 08/27/2024 7:56 AM EDT [facility] Eos Percent 2.8 % 08/27/2024 7:56 AM EDT [facility] Baso Percent 1.3 % 08/27/2024 7:56 AM EDT [facility] Neut # 3.7 1.6 - 6.1 x10(3)/[facility] 08/27/2024 7:56 AM EDT [facility], [facility] Comment:Neutrophils equals s egs plus bands IMMGRAN# 0.0 0.0 - 0.1 x10(3)/[facility] 08/27/2024 7:56 AM EDT [facility] Comment:Automated count of m etamyelocytes, myelocytes and promyelocytes. An absolute IG <0.1 is reported as 0.0. Lymph # 1.6 1.2 - 3.9 x10(3)/[facility] 08/27/2024 7:56 AM EDT [facility] [employer] [place] # 0.6 0.3 - 0.9 x10(3)/[facility] 08/27/2024 7:56 AM EDT [facility] [employer] Eos# 0.2 0.0 - 0.5 x10(3)/[facility] 08/27/2024 7:56 AM EDT [facility] [employer], [facility] Baso # 0.1 0.0 - 0.1 x10(3)/[facility] 08/27/2024 7:56 AM EDT [facility] Blood VENOUS BLOOD / Unknown Venipuncture / Unknown 08/27/2024 7:33 AM EDT 08/27/2024 7:33 AM EDT us Viral Anaya V, DO HEMATOLOGY ORDERABLES Final Re sult [facility] [address] [facility] , [place] [address] * (ABNORMAL) HEMOGLOBIN A1C (08/27/2024 7:33 AM EDT) Hgb A1C 9.9(H) 4.2 - 5.6 % 08/27/2024 8:20 AM EDT [facility] [employer] Est. Avg Glucose 237 mg/dL 08/27/2024 8:20 AM EDT [facility] [employer], [facility] Blood VENOUS BLOOD / Unknown Venipuncture / Unknown 08/27/2024 7:33 AM EDT 08/27/2024 7:33 AM EDT Narrative [facility] - 08/27/2024 8:20 AM EDT REFERENCE RANGE: Normal: 4.0-5.6% Pre-diabetes: 5.7-6.4% Provisional diagnosis of diabetes: >6.4% Hgb F>10% and anything which shortens red cell survival, such as hemolytic anemia, or unstable hemoglobin variants such as HbSS, HbSC, or HbCC, will lower the HbA1c value associated with a given level of glycemic control. us Viral Héctor Espinoza DO CHEMISTRY ORDERABLES Final Res ult [facility] [address] [facility], [place] [address] documented in this encounter Visit Diagnoses Diagnosis Type 1 diabetes mellitus with diabetic neuropathy (HCC) Type I (juvenile type) diabetes mellitus with neurological manifestations, not stated as uncontrolled Screening for deficiency anemia Screening for other and unspecified deficiency anemia Mixed dyslipidemia Mixed hyperlipidemia Screening for thyroid disorder documented in this encounter Orders Lab Orders Without Results Count Last Ordered D ate First Ordered Date HEMOGLOBIN A1C 1 08/27/2024 documented in this encounter Care Teams Blueprinter Relationship Specialty Start Date End Date Parish Anaya DO [address] [place] [phone] PCP - General Family Medicine 10/11/14 Selin Belcher MD [address] [place] [id number] Internal Medicine-Endocrinology, Diabetes & Metabolism 03/08/14 documented as of this encounter
--- NOTE | 2024-09-24 22:58 | HMH.EDGENADL ---
Discharge Plan Disposition Patient Disposition: Admitted Referrals Follow up/Referrals: Anaya,Viral, DO [Primary Care Provider, Medical] - See instructions Clinical Impressions Clinical Impression: UTI (urinary tract infection), DM type 1, not at goal, Mixed acid base balance disorder, Acute hyperglycemia Instructions Patient Instructions: DI for Diarrhea and Traveler's Diarrhea -- Adult, DI for Diarrhea and Traveler's Diarrhea -- Child, DI for Nausea -- Adult, DI for Nausea -- Child Print Language Print Language: Setswana Discharge ED Provider: Devon Barnes General Adult HPI General Chief complaint: Nausea/Vomiting/Diarrhea Stated complaint: Type 1 diabetes, vo since fri, Time Seen by Provider: 09/24/24 22:58 History of Present Illness HPI narrative: 49-year-old female with history of type 1 diabetes and MS presents for nausea and vomiting since Friday. She reports that she has not been able to keep anything down over the last couple of days despite Zofran at home. She denies any other symptoms. Specifically denies chest pain shortness of breath abdominal pain diarrhea fever at home recent illness dysuria etc. Related Data Allergies Allergy/AdvReac Type Severity Reaction Status Date / Time No Known Allergies Allergy Verified 09/24/24 23:27 [facility] Disclaimer: The information contained in this section may have been updated after the patient was seen, as this information can be updated by other users. Social History Smoking Status: Never smoker alcohol intake: never current occupational status: previously employed Travel in the last 8 weeks?: None ROS Obtained: Yes All systems reviewed & no additional complaints except as documented Physical Exam General General appearance: alert and in no apparent distress Head Head exam: atraumatic and normocephalic Eye Eye exam: Present normal appearance, PERRL and EOMI ENT ENT exam: Present normal oropharynx and normal external ear exam Neck Neck exam: Present normal inspection and full ROM Chest Chest inspection: Present normal inspection and symmetric chest wall rise; Absent tenderness Respiratory Respiratory exam: Present normal lung sounds bilaterally; Absent respiratory distress Cardiovascular Cardiovascular exam: Present regular rate and normal rhythm Abdominal Exam Abdominal exam: Present soft; Absent distention, tenderness or guarding Extremities Exam Extremities exam: Present normal inspection; Absent edema or joint swelling Back Exam Back exam: Present normal inspection; Absent tenderness Neurological Exam Neurological exam: Present alert and oriented X3; Absent motor sensory deficit Psychiatric Psychiatric exam: Present normal affect and normal mood Skin Skin exam: Present warm, dry and normal color Lymphatic Lymphatic Findings: no adenopathy Medical Decision Making Medical Records Medical records reviewed: Yes I reviewed the patient's medical records. Screening: Per USPSTF and CDC recommendations, given the prevalence of disease in our region, it is our hospital?s policy to screen for HIV and viral Hepatitis for all patients aged 18 and over and those with ongoing risk factors. Gianfranco Inquiry Pt receiving controlled substance: No Gianfranco was queried for this patient: No Vital Signs: 09/24/24 23:05 09/24/24 23:07 Temperature 98.4 F Temperature Source Oral Pulse Rate 81 Pulse Rate [Left] 82 Respiratory Rate 20 Blood Pressure 147/80 H Blood Pressure [Right Arm] 147/80 H Blood Pressure Mean [Right Arm] 102 Blood Pressure Source [Right Arm] Automatic Cuff Blood Pressure Position [Right Arm] Sitting 02 Sat by Pulse Oximetry 99 99 Oxygen Delivery Method Room Air Lab Data Lab results reviewed: Yes I reviewed the patient's lab results. Lab Results 09/24/24 23:06: WBC 11.0 H, RBC 4.06 L, Hgb 12.2, Hct 37.1, MCV 91.4, MCH 30.0, MCHC 32.9, RDW 12.2, Plt Count 175, MPV 12.2 H, Neut % (Auto) 87.8 H, Lymph % (Auto) 6.7 L, Keith % (Auto) 4.2, Eos % (Auto) 0.1, Baso % (Auto) 0.7, Neut # (Auto) 9.6 H, Lymph # (Auto) 0.7, Keith # (Auto) 0.5, Eos # (Auto) 0.0, Baso # (Auto) 0.1, VBG pH 7.45 H, VBG pCO2 40.7, VBG pO2 37.5, VBG HCO3 27.6, VBG Total CO2 28.8 H, VBG O2 Saturation 71.0 H, VBG Base Excess 3.6 H, VBG Lactic Acid 3.3 H, Sodium 136, Potassium 3.8, Chloride 88 L, Carbon Dioxide 31 H, Anion Gap 20.8 H, BUN 19 H, Creatinine 0.70, Estimated Creat Clear 126, Estimated GFR 88, Est GFR ( Amer) 107, Glucose 428 H*, Calcium 10.2, Phosphorus 3.4, Magnesium 2.0, Total Bilirubin 0.9, AST 47 H, ALT 60, Alkaline Phosphatase 127 H, Total Protein 8.2, Albumin 4.7, Globulin 3.5 H, Albumin/Globulin Ratio 1.3, Lipase 48, Acetone Level Large 09/24/24 23:19: Urine Color Yellow, Urine Appearance Clear, Urine pH 6.5, Ur Specific [place] 1.020, Urine Protein 3+ A, Urine Glucose (UA) 3+, Urine Ketones 3+, Urine Blood 1+ A, Urine Nitrate Negative, Urine Bilirubin Negative, Urine Urobilinogen 1.0, Ur Leukocyte Esterase Negative, Urine RBC 5-10, Urine WBC 10-20, Ur Squamous Epith Cells 5-10, Urine Bacteria 3+, Urine Yeast Occasional 09/24/24 23:06 09/24/24 23:06 Orders (Tests/Meds): ED MEDICATIONS Generic Name Dose Route Start Last Admin Trade Name Freq PRN Reason Stop Dose Admin Sodium Chloride 1,000 mls @ 999 mls/hr 09/24/24 23:15 09/24/24 23:29 Sod Chlor 0.9% 1000ml Bag IV 09/25/24 01:15 999 mls/hr .Q1H1M OSWALDO Administration Sodium Chloride 1,000 mls @ 150 mls/hr 09/25/24 01:15 Sod Chlor 0.9% 1000ml Bag IV 10/25/24 01:14 .[id number] OSWALDO Ceftriaxone Sodium 2 gm/ 100 mls @ 200 mls/hr 09/24/24 23:47 Sodium Chloride IV 09/25/24 00:16 ONCE ONE Discontinued Medications Generic Name Dose Route Start Last Admin Trade Name Freq PRN Reason Stop Dose Admin Insulin Human Lispro 20 unit 09/24/24 23:37 09/24/24 23:44 Humalog 100 Units/Ml 10ml Vial (Ssi) SUBCUT 09/24/24 23:38 20 unit ONCE ONE Administration Promethazine HCl 25 mg 09/24/24 23:31 09/24/24 23:34 Promethazine Hcl 25mg/Ml 1ml Vial IV 09/24/24 23:32 25 mg ONCE ONE Administration Sodium Chloride 25 ml 09/24/24 23:31 09/24/24 23:38 Sodium Chloride 0.9% 25ml Bag IV 09/24/24 23:32 25 ml ONCE ONE Administration ORDERS Category Date Time Status XR chest portable Stat Exams 09/24/24 23:10 Taken Acetone, Serum (Rapid) Stat Lab 09/24/24 23:06 Completed Complete Blood Count Auto Diff Stat Lab 09/24/24 23:06 Completed Comprehensive Metabolic Panel Stat Lab 09/24/24 23:06 Completed Hemoglobin A1C Stat Lab 09/24/24 23:06 Received Lactic Acid Stat Lab 09/24/24 23:06 Ordered Lipase Stat Lab 09/24/24 23:06 Completed Magnesium Stat Lab 09/24/24 23:06 Completed Phosphorous Stat Lab 09/24/24 23:06 Completed Urinalysis and Microscopic Stat Lab 09/24/24 23:19 Completed Blood Culture Stat Micro 09/24/24 23:35 Received Urine Culture Stat Micro 09/24/24 23:19 Received Venous Blood Gas Stat RT 09/24/24 23:06 Completed Tissue Perfus/Sepsis Re-Eval Sepsis Re-Evaluation Performed: Yes Date Performed: 09/25/24 Time Performed: 00:04 Medical Decision Narrative: 1-year-old female with history of type 1 diabetes, MS on therapy presents for nausea and vomiting. History was obtained via interactive discussion with patient, family, chart review. On arrival, patient is [afebrile, hemodynamically stable, satting appropriately, alert, oriented x4, GCS 15], moving all extremities spontaneously. Full physical exam performed and significant for no significant abdominal tenderness, dry mucous membranes Differential includes but is not limited to gastroenteritis, dehydration, electrolyte derangement, UTI, bacteremia, bowel obstruction. Patient was given 2 L NS, 25 of Phenergan for symptomatic management and correction of underlying abnormalities. Workup initiated including broad-spectrum labs, chest x-ray. On re-evaluation, patient [remains afebrile, HD stable.] Laboratory workup independently interpreted by me and significant for hypochloremia metabolic alkalosis consistent with patient's reported vomiting. Also shows hyperglycemia with elevated anion gap. Urinalysis with 5-10 RBCs, 10-20 WBCs and 3+ bacteria consistent with urinary tract infection. Imaging independently interpreted by me and significant for clear lungs bilaterally. See radiology read for full review of final results. Given patient history, exam and workup, patient's presentation most likely represents urinary tract infection with resultant mixed acid-base disturbance associated with severe vomiting as well as hyperglycemia with elevated anion gap. I considered initiating patient on insulin drip, but she does not technically meet the definition for DKA at this time. I initiated 20 units of subcu lispro, as well as 2 g of ceftriaxone for treatment of UTI. Interactive discussion was had with hospitalist on-call for admission. Procedures Risk/Benefits of Procedure(s) Were Explained: Yes Critical Care Critical Care Time Critical Care Time: Yes Attestation: On 09/24/24, the high probability of a clinically significant, sudden or life threatening deterioration of the following system(s) required my full and direct attention, intervention and personal management. The time I documented below is in addition to time spent performing reported procedures but includes the following listed in this critical care notation. Total Time Total Critical Care Time: 40
[2024-09-24 23:05] VITALS: BP 147/80; PULSE 82; RESP 20; TEMP 36.9; O2SAT 99; BMI 32.8
[2024-09-24 23:07] VITALS: BP 147/80; PULSE 81; O2SAT 99
--- NOTE | 2024-09-24 23:10 | XR_ITS ---
PROCEDURE INFORMATION: Exam: XR Chest Exam date and time: 09/24/2024 11:43 PM Age: 49 years old Clinical indication: Other: Persistent vomiting TECHNIQUE: Imaging protocol: Radiologic exam of the chest. Views: 1 view. COMPARISON: No relevant prior studies available. FINDINGS: Lungs: Right mid lung field calcified granuloma. Pleural spaces: Unremarkable. No pleural effusion. No pneumothorax. Heart/Mediastinum: Right hilar calcified lymph node. Bones/joints: Unremarkable. IMPRESSION: No acute findings.
[2024-09-24 23:21] LABS: VBG Base Excess 3.6 mmol/L (-2.4-2.3); VBG HCO3 27.6 mmol/L (23-30); VBG PCO2 40.7 mmol/L (35-51); VBG PH 7.45 mmol/L (7.31-7.41); VBG PO2 37.5 mmol/L (28-40); VBG Total CO2 28.8 mmol/L (23-27)
--- OUTSIDE RECORDS SUMMARY | 2024-09-24 23:21 | XMS_ITS | Encounter Summary ---
Author Organization [place] [address] Care Team Providers Care Wastewater Treatment Plant Attendant Name Role Phone Selin Belcher MD Unavailable [phone] Anaya V, DO, Viral Primary Care Provider [phone] Meagan Govea RN Unavailable Unavailable Veena Carballo LPN Unavailable Unavailable Lexi Combs RN Unavailable Unava ilable Brittny Murrell RN Unavailable Unav ailable Lexi Combs RN Unavailable Unava ilable Alla Chaves RN Unavailable Unavailable Encounter Details Date Type Department Care Team (Late st Contact Info) Description 08/26/2017 Patient Outreach [facility] [place] [address] [place] [address] Anaya, Viral V, DO [address] [place] [address] Social History Tobacco Use Types Packs/Day Years Used Date Smoking Tobacco: Every Day Cigarettes Smokeless Tobacco: Never Alcohol Use Standard Drinks/Week Comments Yes 0 (1 standard drink = 0.6 oz pur e alcohol) occas Sexually Active Control Partners Comments Yes Comments No Sex and Gender Information Value Date Recorded Sex Assigned at Not on file Legal Sex Female 7:32 PM EDT Gender Identity Not on file Sexual Orientation Not on file documented as of this encounter Functional Status * Is the person deaf or does he/she have serious difficulty hearing? Answer Date of Assessment Author No 12/22/2015 3:48 PM EDT Jaquan Noriega RN * Is the person blind or does he/she have serious difficulty seeing even when wearing glasses? Answer Date of Assessment Author No 12/22/2015 3:48 PM EDT Jaquan Noriega RN * Does this person have serious difficulty walking or climbing stairs? Answer Date of Assessment Author No 12/22/2015 3:48 PM EDT Jaquan Noriega RN * Does this person have difficulty dressing or bathing? Answer Date of Assessment Author No 12/22/2015 3:48 PM EDT Jaquan Noriega RN * Because of a physical, mental or emotional condition, does this person have difficulty doing errands alone such as visiting a doctor's office or shopping? Answer Date of Assessment Author No 12/22/2015 3:48 PM EDT Jaquan Noriega RN documented as of this encounter Mental Status * Because of a physical, mental or emotional condition, does this person have serious difficulty concentrating, remembering or making decisions? Answer Entry Date Author No 12/22/2015 3:48 PM EDT Jaquan Noriega RN documented in this encounter Plan of Treatment Not on file documented as of this encounter Goals Goal Patient Goal Type Associated Problems Recent Progress Patient-Stated? Author Blood Pressure < 140/90 Blood Pressure 118/64(2024 8:06 AM EDT) Shannan Khoury RMA BMI (Calculated) < 30 General 33.2(07/27/19 8:06 AM EDT) Shannan Khoury RMA Maintain a healthy diet, exercise regularly and maintain an ideal body weight General On track( 018 1:49 PM EDT) Yaseimn Locke RMA Stay Tobacco Free Lifestyle On track( 018 1:49 PM EDT) Yasemin Locke RMA HEMOGLOBIN A1C < 7.0 Result Component 9.9( 7:33 AM EDT) No Stefani Noriega LPN documented as of this encounter Results * (ABNORMAL) MICROALBUMIN/CREATININE RATIO URINE (10/14/2017 9:00 AM EDT) Pathologist [facility] Urine Microalb 47.6 mg/L 10/14/2017 5:07 PM EDT [facility] [employer] [facility] Urine Creatinine 41.9 mg/dL 10/14/2017 5:07 PM EDT [facility] [employer], [facility] Ur Microalb/Creat 114(H) 0 - 30 mg/g 10/14/2017 5:07 PM EDT [facility] Urine STRUCTURE OF URINARY TRACT PROPER / Unknown 10/14/2017 9:00 AM EDT 10/14/2017 9:00 AM EDT us Viral Anaya V, DO URINE ORDERABLES Final Result [facility] [employer], [facility] [address], [place] [address] [facility] [address] [place] [address] * LIPID SCREEN (10/14/2017 9:00 AM EDT) Cholesterol 123 <=200 mg/dL 10/14/2017 11:55 AM EDT [facility] [employer], [facility] Comment: < 200 Desirable 200 - 239 Borderline High >= 240 High Triglyceride 50 <=150 mg/dL 10/14/2017 11:55 AM EDT [facility] [employer], [facility] Comment: < 150 Normal 150 - 199 Borderline High 200 - 499 High >= 500 Very High HDL 57 >=40 mg/dL 10/14/2017 11:55 AM EDT [employer] [facility] Comment: > 60 Optimal 40 - 60 Acceptable < 40 Low LDL Calculated 56 <=100 mg/dL 10/14/2017 11:55 AM EDT [employer] [facility] Comment: < 100 Optimal 100 - 129 Near or above optimal 130 - 159 Borderline High 160 - 189 High >= 190 Very High Non-HDL-C Calculated 66 <=129 mg/dL 10/14/2017 11:55 AM EDT [employer], [facility] Comment: <130 Desirable 130-159 Above Desirable 160-189 Borderline High 190-219 High >= 220 Very High Blood VENOUS BLOOD / Unknown Venipuncture / Unknown 10/14/2017 9:00 AM EDT 10/14/2017 9:00 AM EDT us Viral Anaya V, DO CHEMISTRY ORDERABLES Final Res ult Performing Organization Address City/[facility]/ZIP Co de Phone Number [facility], [facility] [address] [address] , [place] [address] * (ABNORMAL) HEPATIC FUNCTION PANEL (10/14/2017 9:00 AM EDT) Total Protein 7.2 6.4 - 8.3 gm/dL 10/14/2017 11:55 AM EDT [facility] Albumin 3.9 3.5 - 5.2 gm/dL 10/14/2017 11:55 AM EDT [facility] Bili Direct <0.2 0.0 - 0.3 mg/dL 10/14/2017 11:55 AM EDT [facility] Bili Total 0.2 0.1 - 1.3 mg/dL 10/14/2017 11:55 AM EDT [facility] AST 178(H) <=40 IU/L 10/14/2017 11:55 AM EDT [facility] ALT 184(H) <=41 IU/L 10/14/2017 11:55 AM EDT [facility] Alk Phos 98 35 - 104 IU/L 10/14/2017 11:55 AM EDT [facility] [employer] Blood VENOUS BLOOD / Unknown Venipuncture / Unknown 10/14/2017 9:00 AM EDT 10/14/2017 9:00 AM EDT us Viral Anaya V, DO CHEMISTRY ORDERABLES Final Res ult [facility], [facility] [address] [facility] , [place] [address] * (ABNORMAL) HEMOGLOBIN A1C (10/14/2017 9:00 AM EDT) Hgb A1C 7.9(H) <=7.0 % 10/14/2017 11:46 AM EDT [facility] Est. Avg Glucose 180 mg/dL 10/14/2017 11:46 AM EDT [facility] Blood VENOUS BLOOD / Unknown Venipuncture / Unknown 10/14/2017 9:00 AM EDT 10/14/2017 9:00 AM EDT Narrative [facility], [facility] - 10/14/2017 11:46 AM EDT REFERENCE RANGE: Normal: 4.0-5.6% Pre-diabetes: 5.7-6.4% Provisional diagnosis of diabetes: >6.4% Hgb F>10% and anything which shortens red cell survival, such as hemolytic anemia, or unstable hemoglobin variants such as HbSS, HbSC, or HbCC, will lower the HbA1c value associated with a given level of glycemic control. us Viral Anaya V, DO CHEMISTRY ORDERABLES Final Res ult [facility], [facility] [address] [facility] , [address] [place] [id number] * (ABNORMAL) BASIC METABOLIC PANEL (10/14/2017 9:00 AM EDT) Sodium 137 136 - 145 mmol/L 10/14/2017 11:55 AM EDT [facility] Potassium 4.9 3.5 - 5.0 mmol/L 10/14/2017 11:55 AM EDT [facility] Chloride 99 98 - 107 mmol/L 10/14/2017 11:55 AM EDT [facility] Total CO2 28 22 - 29 mmol/L 10/14/2017 11:55 AM EDT [facility] Anion Gap 10 7 - 16 mmol/L 10/14/2017 11:55 AM EDT [facility] Calcium 9.2 8.6 - 10.2 mg/dL 10/14/2017 11:55 AM EDT [facility] Glucose Lvl 127(H) 74 - 100 mg/dL 10/14/2017 11:55 AM EDT [facility] BUN 17 6 - 20 mg/dL 10/14/2017 11:55 AM EDT [facility] Creatinine 0.56 0.51 - 1.30 mg/dL 10/14/2017 11:55 AM EDT [facility] GFR Afr Am 131 mL/min/1.7 3 m2 10/14/2017 11:55 AM EDT [facility] GFR Non Afr Am 114 mL/min/1.7 3 m2 10/14/2017 11:55 AM EDT [facility] Comment: GFR Afr Am and GFR Non Afr Am calculated using CKD-EPI equation. GFR Category GFR(mL/min/1.73 m ) Kidney Function G1 >=90 Normal or high G2 60-89 Mildly decreased G3a 45-59 Mildly to moderately decreased G3b 30-44 Moderately to severely decreased G4 15-29 Severely decreased G5 <15 Kidney Failure Blood VENOUS BLOOD / Unknown Venipuncture / Unknown 10/14/2017 9:00 AM EDT 10/14/2017 9:00 AM EDT us Viral Héctor Espinoza DO CHEMISTRY ORDERABLES Final Res ult [facility], [employer] [address] [place] [address] [place] [address] [place] [address] documented in this encounter Visit Diagnoses Diagnosis Hypoglycemia associated with diabetes (HCC) Type II or unspecified type diabetes mellitus with other specified manifestations, not stated as uncontrolled documented in this encounter Care Teams Wastewater Treatment Plant Attendant Relationship Specialty Start Date End Date Parish Anaya DO [address] [place] [phone] PCP - General Family Medicine 10/11/14 Selin Belcher MD [address] [facility] [address] [place] [id number] Internal Medicine-Endocrinology, Diabetes & Metabolism 03/08/14 Meagan Govea, cloth boil off machine operator Team Registered Nurse 10/07/17 11/05/17 Veena Carballo LPN Custodial Engineer 05/15/18 01/17/19 Lexi Combs, RN Custodial Engineer Registered Nurse 05/04/19 05/26/19 Brittny Murrell, RN Custodial Engineer Registered Nurse 09/15/19 12/14/19 Lexi Combs, RN Custodial Engineer Registered Nurse 09/25/21 10/12/21 Alla Chaves, RN Custodial Engineer Registered Nurse 12/08/23 02/11/24 documented as of this encounter
[2024-09-24 23:22] LABS: Lactate Venous 3.3 mmol/L (0.4-2.0)
--- OUTSIDE RECORDS SUMMARY | 2024-09-24 23:22 | XMS_ITS | Encounter Summary ---
Author Organization [place] [address] Care Team Providers Care Bridge Leverman Name Role Phone Selin Belcher MD Unavailable [phone] Héctor Espinoza DO, Viral Primary Care Provider [phone] Reason for Visit * Reason Onset Date Comments CM- Telephonic Outreach 08/26/2024 CM-Medication Assistance 08/26/2024 Encounter Details Date Type Department Care Team (Late st Contact Info) Description 08/26/2024 Patient Outreach [address] [address] Alla Chaves RN CM- Telephonic Outreach; CM-Medication Assistance Social History Tobacco Use Types Packs/Day Years [...] Date Recorded PHQ-2 Total Score 0 10/27/2023 [facility] [place] of Occupat ional Health - Occupational Stress [...] 10/27/2023 7:59 AM EDT Mast RMA * Is the person blind or does he/she have serious difficulty seeing even when wearing glasses? Answer Date of Assessment Author No 10/27/2023 7:59 AM EDT Mast RMA * Does this person have serious difficulty walking or climbing stairs? Answer Date of Assessment Author No 10/27/2023 7:59 AM EDT [place], Ter ana maría, RMA * Does this person have difficulty dressing or bathing? Answer Date of Assessment Author No 10/27/2023 7:59 AM EDT Mast RMA * Because of a physical, mental or emotional condition, does this person have difficulty doing errands alone such as visiting a doctor's office or shopping? Answer Date of Assessment Author No 10/27/2023 7:59 AM EDT Mast RMA documented as of this encounter Mental Status * Because of a physical, mental or emotional condition, does this person have serious difficulty concentrating, remembering or making decisions? Answer Entry Date Author No 10/27/2023 7:59 AM EDT Mast RMWarren documented in this encounter Ordered Prescriptions Prescription Sig Dispense Quantity Refills Last Filled Start Date End Date insulin aspart U-100 (NOVOLOG FLEXPEN U-100 INSULIN) 100 unit/mL (3 mL) SubQ Insulin Pen inject per sliding scale before each meal 45 mL 08/26/2024 5 insulin degludec (TRESIBA FLEXTOUCH U-100) 100 unit/mL (3 mL) SubQ Insulin Pen Inject 15 units daily. 45 mL 08/26/2024 5 documented in this encounter Progress Notes * Alla Chaves RN - 08/26/2024 8:22 AM EDT Patient Outreach First attempt to contact patient regarding Shipment of Novolog and Tresiba is ready for warp picker. Outcome: Unable to reach patient by phone HIPAA compliant voicemail left documented in this encounter Plan of Treatment [...] on filedocumented in this encounter Care Teams Bridge Leverman Relationship Specialty Start Date End Date Parish nAaya DO [address] [place] [phone] PCP - General Family Medicine 10/11/14 Selin Belcher MD [address] [phone] Internal Medicine-Endocrinology, Diabetes & Metabolism 03/08/14 documented as of this encounter
--- OUTSIDE RECORDS SUMMARY | 2024-09-24 23:22 | XMS_ITS | Encounter Summary ---
Author Organization [place] [address] Care Team Providers Care Boat Tender Name Role Phone Selin Belcher MD Unavailable [phone] Héctor Espinoza DO, Viral Primary Care Provider Reason for Visit * Reason Onset Date Comments Results 08/27/2024 Encounter Details Date Type Department Care Team (Late Contact Info) Description 08/27/2024 Telephone [facility] [address] [place] [address] Parish Anaya V, DO [address] [place] [address] Results (/) Social History Tobacco Use Types Packs/Day Years [...] Date Recorded PHQ-2 Total Score 0 10/27/2023 [facility] [place] [facility] - Occupational Stress [...] place to sleep or slept in a [facility]cc (including now)? No 12/04/2022 Sexually Active Control [...] Author No 10/27/2023 7:59 AM Davis RMA * Is the person blind or does he/she have serious difficulty seeing even when wearing glasses? Answer Date of Assessment Author No 10/27/2023 7:59 AM Davis RMA * Does this person have serious difficulty walking or climbing stairs? Answer Date of Assessment Author No 10/27/2023 7:59 AM EDT Janet Lacy RMA * Does this person have difficulty [...] Date Author No 10/27/2023 7:59 AM EDT GonzalesLacy RMA documented in this encounter Miscellaneous Notes * Telephone Encounter - Mellissa Gordon RMA - 08/27/2024 8:54 AM EDT Critical lab with a glucose of 35 documented in this encounter Plan of Treatment [...] Component 9.9(08/28/19 25 7:33 AM EDT) No NoriegaStefani cedillo LPN documented as of this encounter Visit Diagnoses Not on filedocumented in this encounter Care Teams Boat Tender Relationship Specialty Start Date End Date Parish Anaya DO [address] [place] [id number] PCP - General Family Medicine 10/11/14 Selin Belcher MD [address] [address] Internal Medicine-Endocrinology, Diabetes & Metabolism 03/08/14 documented as of this encounter
--- OUTSIDE RECORDS SUMMARY | 2024-09-24 23:22 | XMS_ITS | Clinical Summary ---
Author Organization [facility] Address [address] [place] [address] Phone Care Team Providers Care Tax Accounting Assistant Name Role Phone Selin Belcher MD Unavailable [phone] Héctor Espinoza DO, Viral Primary Care Provider [phone] Allergies Active Allergy Reactions Criticality Noted Date Comments Varenicline Nausea Only 12/21/2014 Cephalexin Nausea And Vomiting 02/06/2016 Medications Alcohol Swabs (ALCOHOL PREP SWABS) Top Pads, Medicated Use as directed 600 Each 1 08/29/19 16 Active glucagon, human recombinant, (GLUCAGON EMERGENCY KIT, HUMAN,) 1 mg Inj Kit Use as directed for severe hypoglycemia. 1 Kit 5 11/15/19 16 Active Acetone, Urine, Test (KETONE URINE TEST) Misc Strip Use when blood sugar is above 240 and on sick days. 1 box 11 02/06/20 16 Active Cholecalciferol, Vitamin D3, 2,000 unit Oral CapsuleIndication s:Multiple sclerosis, relapsing-remitti ng (HCC) Take 1 Cap by mouth daily. 90 Cap 4 04/10/19 17 Active Lancets Misc MiscIndications:T ype 1 diabetes mellitus with diabetic neuropathy (HCC) 1 Stick by Misc.(Non-Drug; Combo Route) route 4 times daily. DX E10.40 please give what is covered by patient's insurance 360 Each 3 04/21/19 19 Active flash glucose scanning reader (FREESTYLE CHANA 14 DAY READER) Misc Misc Use for continuous glucose monitoring. 1 Each 10/31/19 19 Active Melatonin 3 mg Oral Tablet Take 9 mg by mouth nightly as needed. Active ibuprofen (ADVIL;MOTRIN) 200 mg Oral Tablet Take 400 mg by mouth nightly as needed for Pain. Active insulin aspart U-100 (NOVOLOG FLEXPEN U-100 INSULIN) 100 unit/mL (3 mL) SubQ Insulin PenIndications:Ty pe 1 diabetes mellitus with diabetic neuropathy (HCC) Take at meals as directed at office visit; may take up to 30 units total daily dose 3 Syringe 11 06/15/19 21 Active BD EDGAR 2ND GEN PEN NEEDLE 32 gauge x [facility] Needle USE ONE PEN NEEDLE THREE TIMES DAILY BEFORE MEAL(S) 100 Each 03/28/20 21 Active enoxaparin (LOVENOX) SubQ Syringe 30 mg/m0.3 mL Subcutaneous (Inject under the skin) every 12 hours. Active VUMERITY 231 mg Oral Capsule, Delayed Release(E.C.)Rose cations:UTI (urinary tract infection), uncomplicated TAKE 2 CAPSULES BY MOUTH 2 TIMES A DAY 120 Capsule 11 03/30/20 24 Active venlafaxine (EFFEXOR) 75 mg Oral Tablet Take 0.5 Tablets by mouth daily. 45 Tablet 3 04/26/19 25 Active losartan (COZAAR) 50 mg Oral TabletIndications :Essential hypertension,Type 1 diabetes mellitus with diabetic neuropathy (HCC) Take 1 Tablet by mouth daily. 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 135 Tablet 6 04/28/19 25 Active atorvastatin (LIPITOR) 20 mg Oral TabletIndications :Mixed dyslipidemia,PVD (peripheral vascular disease) Take 1 Tablet by mouth daily. 90 Tablet 3 04/29/19 25 Active fUROsemide (LASIX) 20 mg Oral TabletIndications :Peripheral edema Take 1 tablet by mouth once daily 90 Tablet 04/29/19 25 Active venlafaxine (EFFEXOR-XR) 37.5 mg Oral Capsule, Sust. Release 24 hrIndications:Rec urrent major depressive disorder, in full remission Take 1 Capsule by mouth daily. 90 Capsule 3 07/27/19 25 Active flash glucose sensor (FREESTYLE CHANA 14 DAY SENSOR) [facility] KitIndications:Ty pe 1 diabetes mellitus with stable proliferative diabetic retinopathy, left eye ([facility]) USE ONE SENSOR EVERY 14 DAYS FOR CONTINUEOUS GLUCOSE MONITORING 2 Kit 11 07/27/19 25 Active nortriptyline (PAMELOR) 50 mg Oral CapsuleIndication s:Type 1 diabetes mellitus with diabetic neuropathy ([facility]) Take 2 Capsules by mouth nightly. 60 Capsule 11 08/13/19 25 Active levETIRAcetam (KEPPRA) 500 mg Oral TabletIndications :Muscle spasticity,Multip le sclerosis, relapsing-remitti ng ([facility]),Epilepsy, focal ([facility]) Take 1 Tablet by mouth 2 times daily. 60 Tablet 9 08/25/19 25 Active insulin degludec (TRESIBA FLEXTOUCH U-100) 100 unit/mL (3 mL) SubQ Insulin Pen Inject 15 units daily. 45 mL 08/27/19 25 025 Active insulin aspart U-100 (NOVOLOG FLEXPEN U-100 INSULIN) 100 unit/mL (3 mL) SubQ Insulin Pen inject per sliding scale before each meal 45 mL 08/27/19 25 025 Active ondansetron (ZOFRAN) 4 mg Oral TabletIndications :Nausea Take 1 Tablet by mouth every 8 hours as needed for Nausea for up to 7 days. 21 Tablet 09/25/19 25 025 Active insulin degludec (TRESIBA FLEXTOUCH U-100) 100 unit/mL (3 mL) SubQ Insulin Pen Inject 15 units daily 15 mL 05/24/19 25 025 insulin aspart U-100 (NOVOLOG FLEXPEN U-100 INSULIN) 100 unit/mL (3 mL) SubQ Insulin Pen Inject per sliding scale, before meals. Max 30 units daily. 45 mL 05/24/19 25 025 Active Problems Patient Care Coordination No te Formatting of this note migh t be different from the original. Care gap audit completed by Brunilda Moseley RN on 11/13/2023. 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 She has noticed increasing discomfort in her extremities that she associates with the stiff person syndrome symptoms. She is already taking tizanidine. I have asked her to increase this from 1 tablet twice daily or 3 times daily (takes TID when feeling more pain) to 1.5 tabs with each dose. She is aware to monitor for sedation. 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 She denies any significant problems from this condition, which is treated symptomatically. Given she is not experiencing symptoms we will hold off on using any medication for this condition for now. 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 She does not really experience much in terms of muscle stiffness, rigidity, or significant pain. This condition is treated symptomatically. Given she is experiencing no significant problems from this condition we will continue to monitor it. Assessment & Plan (01/04/2021 1:56 PM EDT): While Mrs. Núñez has positive ROBERT antibodies they are minimally elevated and she denies having any symptoms consistent with stiff person syndrome symptoms. We will hold off on treating this condition until/unless she experiences symptoms that warrant treatment. 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 When I entered the room she had actually been losing one of the pamphlets that outlines the services that [facility] offers for smoking cessation. We discussed it being a good idea for her to work on smoking cessation. She does report that she has been doing so. She has tried to cut back by using vape cigarettes, and has done so successfully. I have encouraged her to continue to work on lowering the amount of cigarettes she smokes each day. Eventually I would then have her discontinue the vape cigarettes as well. She is aware to notify me if she opts to pursue any of the services offered in [facility], or contact this service directly. We spent at least 3 minutes discussing smoking and smoking cessation. DAVID (stress urinary incontinence, female) 2016 Pessary maintenance 04/05/2016 Recurrent major depressive disorder, in full rem ission 04/02/2016 Assessment & Plan (07/26/2024 8:46 AM EDT): Goal: achieve mental health wellness where ADLs, [...] hr; Take 1 Capsule by mouth daily. Thrombocytopenia 04/02/2016 Type 1 diabetes mellitus with diabetic neuropath y 04/02/2016 Assessment & Plan (07/26/2024 8:46 AM EDT): Orders: COMPREHENSIVE METABOLIC PANEL; Future HEMOGLOBIN A1C; Future Assessment & Plan (03/03/2024 2:06 PM EST): Orders: POCT URINE MICROALBUMIN losartan (COZAAR) 50 mg Oral Tablet; Take 1 Tablet by mouth daily. Assessment & Plan (01/27/2023 10:29 AM EDT): Mrs. Núñez's primary complaint is that she has poor balance. We discussed this more than likely being related to her underlying peripheral neuropathy. She has relatively poorly controlled diabetes currently. She is improving over time at least. She was encouraged to continue to work on getting her diabetes under more optimal control. I will defer management of her diabetes to her primary care physician. Assessment & Plan (01/23/2022 12:27 PM EDT): Mrs. Nñúez has diabetes along with a diabetic peripheral neuropathy. 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 She will remain on nortriptyline for now for neuropathic pain. Assessment & Plan (01/04/2021 1:54 PM EDT): Mrs. Núñez continues to have problems with peripheral neuropathy, but feels they are under fairly good control currently. Unfortunately, it does appear that her diabetes is still not yet optimally controlled. I would like for her to get a repeat hemoglobin A1c, as does her primary care physician. She had blood work that is still pending from October. She was encouraged to get this blood work completed. 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 Núñez has not had a seizure since 2019. This represents excellent seizure control. We will continue Keppra 500 mg BID. Assessment & Plan (01/27/2023 10:28 AM EDT): Mrs. Núñez has had no seizures since last visit. Her last seizure was in 2019. She was strongly encouraged to make sure she continues taking her medication on a regular basis. She was maintained on Keppra 500 mg BID. Assessment & Plan (01/23/2022 12:28 PM EDT): Mrs. Núñez has experienced no seizures since last visit. She will remain on Keppra 500 mg BID. Assessment & Plan (01/04/2021 1:55 PM EDT): I would consider the diagnosis of epilepsy presumed. She was placed on Keppra secondary to symptoms she was experiencing. Once on the Keppra the symptoms stopped. Her workup has never showed any abnormalities consistent with epilepsy. That being said, she has a diagnosis of stiff person syndrome, which can have epilepsy as a a component. Her brother has both stiff person syndrome and epilepsy as well. I would continue to assume the diagnosis is accurate as long as she is doing as well as medication as she is currently. Mixed dyslipidemia 04/09/2013 Overview (06/28/2013): Followed by Endocrinology. Assessment & Plan (07/26/2024 8:46 AM EDT): Orders: LIPID PANEL REFLEX; Future Multiple sclerosis, relapsing-remitting Assessment & Plan (04/28/2024 12:43 PM EST): Mrs. Núñez has multiple sclerosis that appears to be under good control. She has had no symptoms concerning for flareups or exacerbations. She will continue Vumerity. Blood work was reviewed and was within normal limits. Assessment & Plan (01/27/2023 10:27 AM EDT): Mrs. Núñez continues to do very well from a multiple sclerosis standpoint. She has had no symptoms concerning for exacerbations or flareups of her MS. She will continue taking Vumerity. MRIs performed in September were unchanged compared to studies from 1 year prior. Given how well she is doing I do not feel strongly that she would need to have another series of MRIs in the near future. I would not want her to go longer than 2 years between studies, however. She is aware to notify me if she experiences any symptoms concerning for flareups or exacerbations, at which time we can always perform MRIs. Assessment & Plan (01/23/2022 12:31 PM EDT): Mrs. Núñez has multiple sclerosis that appears to be under good control. She has experienced no symptoms concerning for flareups or exacerbations. She will remain on Vumerity. She had MRIs earlier this year that were unremarkable. She is to continue taking vitamin D as well. Assessment & Plan (01/04/2021 1:58 PM EDT): She has been doing well from a multiple sclerosis standpoint, having had no symptoms concerning for MS flareups or exacerbations. She transitioned from tecfidera to vumerity due to her insurance forcing her to do so. She tolerated this transition well. She does believe the medication is effective and she is tolerating it well. She is taking vitamin D as well. She has not been exercising or stretching as much as she should and was encouraged to increase her activity and stretching level. We reviewed her MRIs together in the office today. There was no progression compared to prior studies. Resolved Problems Problem Noted Date Diagnosed Date Resolved Date Diabetic ketoacidosis withou t coma associated with type 1 diabetes mellitus 10/05/2017 03/04/2019 Overview (03/04/2019): Acute condition reported 1 year ago 10/05/17 COPD, severe 04/02/2016 04/21/2018 Type 1 diabetes mellitus wit h ketoacidosis without coma, with long-term current use of insulin 12/20/2015 04/02/2016 Leukemoid reaction 12/20/2015 7 Hyperkalemia 12/20/2015 04/02/2016 High anion gap metabolic acidosis 12/20/2015 04/02/2016 Diabetic peripheral neuropathy 05/10/2015 04/02/2016 Non morbid obesity due to excess calories 05/10/2015 04/02/2016 Long-term insulin use 07/19/20132016 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 Urinary tract infection 05/2016 Encounters Date Type Department Care Team Description 09/24/2024 Telephone [facility] [address] [place] [phone] Héctor, Viral V, DO Symptoms (Only Use If Pt Pushes Back On Scheduling A Visit) (vomiting) 08/27/2024 6:20 AM EDT - 08/27/2024 11:59 PM EDT Hospital Encounter [facility] [place] [place] [address] Type 1 diabetes mellitus with diabetic neuropathy (HCC); Screening for deficiency anemia; Mixed dyslipidemia; Screening for thyroid disorder Discharge Disposition: Home or Self Care 08/27/2024 Results Follow-Up [address] [phone] Yasemin Gonzales RMA HEMOGLOBIN A1C, CBC WITH DIFF, COMPREHENSIVE METABOLIC PANEL, Additional followed-up results: 2 08/27/[address] [phone] Héctor Viral V, DO Results (/) 08/26/2024 Patient Outreach [address] [phone] Alla Chaves RN CM- Telephonic Outreach; CM-Medication Assistance 08/24/2024 Refill [facility] Neurology [place] [address] [place] [phone] Edouard Ferguson MD Medication Refill (Levetiracetam) 08/12/2024 Refill [place] [address] [place] [phone] Edouard Ferguson MD Medication Refill (Nortriptyline) 07/26/2024 8:20 AM EDT Office Visit [address] [phone] Héctor Viral V, DO Type 1 diabetes mellitus with diabetic neuropathy (HCC) (Primary Dx); Recurrent major depressive disorder, in full remission; Mixed dyslipidemia; Screening for deficiency anemia; Screening for thyroid disorder; Type 1 diabetes mellitus with stable proliferative diabetic retinopathy, left eye (HCC); Well adult exam 06/25/2024 Telephone [facility] Neurology [place] [id number] [place] [phone] Edouard Ferguson MD Results (MRI's) from Last 3 Months Immunizations Immunization Administration Dates Next Due Influenza Patient Reported 12/15/2014 Influenza Seasonal Injectable 12/23/2023, 015 Influenza Vaccine Quadrivalent 12/15/2017,2013 Influenza Vaccine Quadrivalent PF 12/20/2015 Influenza Vaccine, Unspecifi ed Formulation 12/15/2014,01/25/2012,03/05/2011 Influenza Virus Vaccine Quad rivalant, Flublok 12/04/2022,01/07/2022,01/24/2021,12/09 Pneumococcal Polysaccharide 23 Valent 10/05/2017 Tdap 12/30/2014, 5,06/04/2011(Defer red: Patient Refused) Surgical History Surgery Date Site/Laterality Comments TONSILLECTOMY as a child SINUS SURGERY ~2000 CARPAL TUNNEL RELEASE 12/27/2014 Right RIGHT CARPAL TUNNEL RELEASE; Surgeon: Jessica Alvarez MD; [facility]; Service: Hand TIBIA FRACTURE SURGERY 04/23/2019 Right OPEN REDUCTION INTERNAL FIXATION RIGHT TIBIA/FIBULA FRACTURE; Surgeon: Maximiliano Gaytan MD; [facility]; Service: Orthopedics Medical devices from this surgery are in the Medical Devices section. FEMUR FRACTURE SURGERY Right sub trochanteric femus fracture Medical History Medical History Date Comments Diabetes mellitus (HCC) Chronic headaches Edema feet and legs Urinary tract infection 12/21/2014 taking a ntibiotic until 12/22/2014 Epilepsy, focal (HCC) MS (multiple sclerosis) (HCC) Dr Ferguson Carpal tunnel syndrome, right 11/2014 Diabetic peripheral neuropathy (HCC) Hyperlipidemia better now Depression not anymore Restless leg syndrome Family History Medical History Relation Name Comments Seizures Brother Stiff person syndrome Brother Diabetes Father Diabetes Maternal Uncle Breast Cancer Paternal Aunt Diabetes Paternal Grandmother Anesth Problems Neg Hx Relation Name Status Comments Brother Father Alive Maternal Uncle Mother Alive Paternal Aunt Paternal Grandmother Social History Tobacco Use Types Packs/Day Years [...] PHQ-2 Total Score 0 10/27/2023 [facility] - Occupational [...] on file Sexual Orientation Not on file Obstetrics History Para Term AB IAB SAB Ectopic Multiple Livin g Live Births 2 2 2 2 Date Outcome GA Total Labor Labor/2nd/3rd Weight Sex Type Anes PTL Alicia A1 A5 Name Clin SAB SAB Last Filed Vital Signs Vital Sign Reading [...] Mass Index 33.13 07/26/2024 8:06 AM EDT Plan of Treatment Health Maintenance Due Date Last Done Comments Hepatitis B Vaccine (1 of 3 - 19+ 3-dose series) 1992 HPV/Pap Cotest 2003 Colonoscopy 2018 FIT 2018 Sigmoidoscopy 2018 Virtual Colonography 2018 Pneumococcal Vaccine 50+ (2 of 2 - PCV) 10/05/2018 10/05/2017 Cervical Cancer Screening 12/16/2020 Pap Smear 12/16/2020 12/16/2017, 11/0 06/2014, 06/26/2011, Additional history exists Zoster (1 of 2) 2023 COVID-19 Vaccine (1 - season) 2023 DTaP/TDaP/Td (3 - Td or Tdap) 12/30/2024 12/30/2014, 12/28/2014 Hemoglobin A1c 02/27/2025 08/27/2024, 07/11/2023, 10/27/2023, Additional history exists Kidney Health: uACR 03/03/2025 03/03/2024, 10/18/2021, 10/18/2021, Additional history exists Cologuard 04/22/2025 04/22/2022, 04/22/2022 Colon Cancer Screening 04/22/2025 Wellness Exam Medicare 07/27/2025 07/26/2024 Kidney Health: eGFR 08/27/2025 08/27/2024, 10/27/2023, 05/05/2023, Additional history exists Lipids 08/27/2025 08/27/2024, 09/29, 10/27/2023, Additional history exists Breast Cancer Screening 11/23/2025 11/24/19, 05/01/2018, 04/04/2017, Additional history exists Diabetic Eye Exam 01/13/2026 01/14/2024, , 07/22/2022, Additional history exists Influenza Vaccine Completed 12/23/2023, , 01/07/2022, Additional history exists Meningococcal B Vaccine Aged Out No l onger eligible based on patient's age to complete this topic Goals Goal Patient Goal Type Associated Problems [...] 7:33 AM EDT) No Stefani Noriega LPN Medical Devices Implanted Type Area Final Assembly Inspector Device Identifier Shelf Expiration Date Model / Serial / Lot Plate Tibial M-D 18h Rt 228mm 2.7/3.5mm Evos - [id number] Implanted:Qty: 1 on 04/23/2019 by [facility]iliano [facility]tan MD at [facility] Right: Ankle [employer]:ORTHO 09/14/2028 [id number] / / [id number] Screw Bone Evos L46 Mm Od3.5 Mm Cortex Self Tap Sterile - [id number] Implanted:Qty: 1 on 04/23/2019 by Maximiliano Gaytan MD at [facility] Right: Ankle [employer]TH[employer] [id number] / / Screw Bone Evos L16 Mm Od3.5 Mm Self Tap Lock Sterile - [id number] Implanted:Qty: 1 on 04/23/2019 by Maximiliano Gaytan MD at [facility] Right: Ankle [employer]TH[employer] [id number] / / Screw Bone Evos L38 Mm Od3.5 Mm Self Tap Lock Sterile - [id number] Implanted:Qty: 1 on 04/23/2019 by Maximiliano Gaytan MD at [facility] Right: Ankle [employer]TH[employer] [id number] / / Screw Bone 3.5mm 40mm Evos Self Tap Lock Sterile - [id number] Implanted:Qty: 1 on 04/23/2019 by Maximiliano Gaytan MD at [facility] Right: Ankle [employer]TH[employer] [id number] / / Screw Bn 3.5mm 48mm Evos St Lck Strl - [id number] Implanted:Qty: 1 on 04/23/2019 by Maximiliano Gyatan MD at [facility] Right: Ankle [employer] [id number] / / Plate Bone Evos 1/3 Tubular L94 Mm 8 Hole Lock Sterile 3.5mm - [id number] Implanted:Qty: 1 on 04/23/2019 by Maximiliano Gaytan MD at [facility] Right: Ankle [employer] [id number] / / Screw Bn 2.7mm 4.3mm 38mm T8 [address] Lck Evos - [id number] Implanted:Qty: 1 on 04/23/2019 by Maximiliano Gaytan MD at [facility] Right: Ankle [employer] [id number] / / Screw Bn 2.7mm 4.3mm 44mm T8 [address] Lck Evos - [id number] Implanted:Qty: 1 on 04/23/2019 by Maximiliano Gaytan MD at [facility] Right: Ankle [employer] [id number] / / Screw Locking Evos T8 S-T 2.7mm X 48mm - [id number] Implanted:Qty: 1 on 04/23/2019 by Maximiliano Gaytan MD at [facility] Right: Ankle [employer]TH[employer] [id number] / / Screw Bn 2.7mm 4.0mm 48mm Evos Mn Ss T[address] Strl - [id number] Implanted:Qty: 1 on 04/23/2019 by Maximiliano Gaytan MD at [facility] Right: Ankle [employer] [id number] / / Screw Bone Evos L16 Mm Od3.5 Mm Cortex Self Tap Sterile - [id number] Implanted:Qty: 1 on 04/23/2019 by Maximiliano Gaytan MD at [facility] Right: Ankle [employer] [id number] / / Screw Bone Evos L26 Mm Od3.5 Mm Cortex Self Tap Sterile - [id number] Implanted:Qty: 2 on 04/23/2019 by Maximiliano Gaytan MD at [facility] Right: Ankle [employer] [id number] / / Screw Bone Evos L10 Mm Od3.5 Mm Cortex Self Tap Sterile - [id number] Implanted:Qty: 1 on 04/23/2019 by Maximiliano Gaytan MD at [facility] Right: Ankle [employer] [id number] / / Screw Bone Evos L12 Mm Od3.5 Mm Cortex Self Tap Sterile - [id number] Implanted:Qty: 1 on 04/23/2019 by Maximiliano Gaytan MD at [facility] Right: Ankle [employer] [id number] / / Screw Bone Evos L28 Mm Od3.5 Mm Cortex Self Tap Sterile - [id number] Implanted:Qty: 3 on 04/23/2019 by Maximiliano Gaytan MD at [facility] Right: Ankle [employer] [id number] / / Procedures Procedure Name Priority Date/Time Associated Diagnosis Comments THYROID STIMULATING HORMONE Routine 08/27/2024 7:33 AM EDT Screening for thyroid disorder LIPID PANEL REFLEX Routine 08/27/2024 7: 33 AM EDT Mixed dyslipidemia COMPREHENSIVE METABOLIC PANEL Routine 08/27/2024 7:33 AM EDT Type 1 diabetes mellitus with diabetic neuropathy (HCC) CBC WITH DIFF Routine 08/27/2024 7:33 AM EDT Screening for deficiency anemia HEMOGLOBIN A1C Routine 08/27/2024 7:33 AM EDT Type 1 diabetes mellitus with diabetic neuropathy (HCC) HM DIABETES EYE EXAM Routine 01/14/2024 9:15 AM EDT MM MAMMO DIGITAL PRATIBHA SCREEN BILAT Routine 11/24/2023 10:02 AM EDT Visit for screening mammogram COLOGUARD Routine 04/22/2022 12:08 PM EST Special screening for malignant neoplasms, colon Screening for malignant neoplasm of the rectum MICROALBUMIN/CREATINI NE RATIO URINE Routine 10/18/2021 1:20 PM EDT Type 1 diabetes mellitus without complication (HCC) 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 (PAP ONLY) Routine 12/16/2017 10:42 AM EDT Encounter for cervical Pap smear with pelvic exam from Last 3 Months or Most Recently Relevant to Health Maintenance Results * LIPID PANEL REFLEX (08/27/2024 7:33 AM EDT) Cholesterol 133 <200 mg/dL 08/27/2024 8:53 AM EDT [facility]REFERRED [facility] Comment: < 200 Desirable 200 - 239 Borderline High >= 240 High Triglyceride 88 <150 mg/dL 08/27/2024 8:53 AM EDT [facility] Comment: < 150 Normal 150 - 199 Borderline High 200 - 499 High >= 500 Very High HDL 56 >=40 mg/dL 08/27/2024 8:53 AM EDT [facility] Comment: > 60 Optimal 40 - 60 Acceptable < 40 Low LDL Calculated 60 <100 mg/dL 08/27/2024 8:53 AM EDT [facility] Comment: < 100 Optimal 100 - 129 Near or above optimal 130 - 159 Borderline High 160 - 189 High >= 190 Very High The National Institutes of Health (NIH) equation is used for all lipid panels that report calculated LDL (LDL-C). Non-HDL-C Calculated 77 <=129 mg/dL 08/27/2024 8:53 AM EDT [facility] Comment: <130 Desirable 130-159 Above Desirable 160-189 Borderline High 190-219 High >= 220 Very High Fasting Specimen? Yes None 025 8:53 AM EDT [facility], [facility] Blood VENOUS BLOOD / Unknown Venipuncture / Unknown 08/27/2024 7:33 AM EDT 08/27/2024 7:33 AM EDT us Viral Anaya V, DO CHEMISTRY ORDERABLES Final Res ult [facility] [address] [facility] , [place] [address] * (ABNORMAL) CBC WITH DIFF (08/27/2024 7:33 AM EDT) WBC 6.2 3.7 - 10.3 x10(3)/mcL 08/27/2024 7:56 AM EDT [facility] RBC 3.70(L) 3.90 - 5.20 x10(6)/mcL 08/27/2024 7:56 AM EDT [facility] Hgb 11.2 11.2 - 15.7 g/dL 08/27/2024 7:56 AM EDT [facility] Hct 34.6 34.0 - 45.0 % 08/27/2024 7:56 AM EDT [facility] MCV 93.5 80.0 - 100.0 fL 08/27/2024 7:56 AM EDT [facility] MCH 30.3 26.0 - 34.0 pg 08/27/2024 7:56 AM EDT [facility] MCHC 32.4 30.7 - 35.5 g/dL 08/27/2024 7:56 AM EDT [facility] RDW 12.1 <=14.9 % 08/27/2024 7:56 AM EDT [facility] Platelet 158 155 - 369 x10(3)/mcL 08/27/2024 7:56 AM EDT [facility] MPV 11.6 8.8 - 12.5 fL 08/27/2024 7:56 AM EDT [facility] Neut Percent 60.0 % 08/27/2024 7:56 AM EDT [facility] Comment:Neutrophils equals s egs plus bands Imm Gran% 0.3 % 08/27/2024 7:56 AM EDT [facility] Comment:Automated count of m etamyelocytes, myelocytes and promyelocytes. Lymph Percent 26.5 % 08/27/2024 7:56 AM EDT [facility] [place] Percent 9.1 % 08/27/2024 7:56 AM EDT [facility] Eos Percent 2.8 % 08/27/2024 7:56 AM EDT [facility] Baso Percent 1.3 % 08/27/2024 7:56 AM EDT [facility] Neut # 3.7 1.6 - 6.1 x10(3)/mcL 08/27/2024 7:56 AM EDT [facility] Comment:Neutrophils equals s egs plus bands IMMGRAN# 0.0 0.0 - 0.1 x10(3)/mcL 08/27/2024 7:56 AM EDT [facility] Comment:Automated count of m etamyelocytes, myelocytes and promyelocytes. An absolute IG <0.1 is reported as 0.0. Lymph # 1.6 1.2 - 3.9 x10(3)/mcL 08/27/2024 7:56 AM EDT [facility] [place] # 0.6 0.3 - 0.9 x10(3)/mcL 08/27/2024 7:56 AM EDT [facility] Eos# 0.2 0.0 - 0.5 x10(3)/mcL 08/27/2024 7:56 AM EDT [facility] [place] # 0.1 0.0 - 0.1 x10(3)/mcL 08/27/2024 7:56 AM EDT [facility] Blood VENOUS BLOOD / Unknown Venipuncture / Unknown 08/27/2024 7:33 AM EDT 08/27/2024 7:33 AM EDT us Viral Anaya V, DO HEMATOLOGY ORDERABLES Final Re sult Performing Organization Address [facility] Co de Phone Number [facility] , [place] [address] * THYROID STIMULATING HORMONE (08/27/2024 7:33 AM EDT) TSH 3.180 0.270 - 4.200 mcIU/mL 08/27/2024 8:53 AM EDT [facility] [employer] [facility] Blood VENOUS BLOOD / Unknown Venipuncture / Unknown 08/27/2024 7:33 AM EDT 08/27/2024 7:33 AM EDT Narrative [facility] [employer] [facility] - 08/27/2024 8:53 AM EDT Ingestion of caden doses of biotin (>5 mg/day) taken within 8 hours of drawing blood sample can interfere with this immunoassay test. us Viral Anaya V, DO CHEMISTRY ORDERABLES Final Res ult Performing Organization Address [facility] Co de Phone Number [facility] , [place] [address] * (ABNORMAL) HEMOGLOBIN A1C (08/27/2024 7:33 AM EDT) Hgb A1C 9.9(H) 4.2 - 5.6 % 08/27/2024 8:20 AM EDT [facility] [employer] [facility] Est. Avg Glucose 237 mg/dL 08/27/2024 8:20 AM EDT [facility], [facility] Blood VENOUS BLOOD / Unknown [...] Res ult [facility] [address] [facility] , [place] [address] * (ABNORMAL) COMPREHENSIVE METABOLIC PANEL (08/27/2024 7:33 AM EDT) Sodium 140 136 - 145 mmol/L 08/27/2024 8:54 AM EDT [facility] Potassium 4.7 3.5 - 5.0 mmol/L 08/27/2024 8:54 AM EDT [facility] Chloride 105 98 - 107 mmol/L 08/27/2024 8:54 AM EDT [facility] Total CO2 28 22 - 29 mmol/L 08/27/2024 8:54 AM EDT [facility] Anion Gap 7 7 - 16 mmol/L 08/27/2024 8:54 AM EDT [facility] Calcium 9.5 8.6 - 10.4 mg/dL 08/27/2024 8:54 AM EDT [facility] Glucose Lvl 35(LL) 70 - 99 mg/dL 08/27/2024 8:54 AM EDT [facility] BUN 18 6 - 20 mg/dL 08/27/2024 8:54 AM EDT [facility] Creatinine 0.65 0.51 - 1.30 mg/dL 08/27/2024 8:54 AM EDT [facility] Albumin 4.1 3.5 - 5.2 gm/dL 08/27/2024 8:54 AM EDT [facility] Total Protein 7.1 6.4 - 8.3 gm/dL 08/27/2024 8:54 AM EDT [facility] Bili Total 0.2 0.2 - 1.3 mg/dL 08/27/2024 8:54 AM EDT [facility] ALT 24 <=41 U/L 08/27/2024 8:54 AM EDT [facility] AST 18 <=40 U/L 08/27/2024 8:54 AM EDT [facility] Alk Phos 114 36 - 123 U/L 08/27/2024 8:54 AM EDT [facility] eGFR (CKD-EPIcr 2020) 106 >=60 mL/min/1.7 3 m2 08/27/2024 8:54 AM EDT [facility] Comment:Estimated GFR was ca lculated using the CKD-EPIcr (2020) equation refit without race. The equation is recommended by the National Kidney Foundation - [place] Society of Nephrology Task Force. Blood VENOUS BLOOD / Unknown Venipuncture / Unknown 08/27/2024 7:33 AM EDT 08/27/2024 7:33 AM EDT us Viral Anaya V, DO CHEMISTRY ORDERABLES Final Res ult [facility] [address] [facility] , [place] [address] * DIABETES EYE EXAM (01/14/2024 9:15 AM EDT) Left Diabetic Retinopathy Not Present Not Present Present/Not Present [facility] Comment:MINIMAL BACKGROUND R ETINOPATHY. CONTINUE TO MONITOR Right Diabetic Retinopathy Not Present Not Present Present/Not Present [facility] Comment:MINIMAL BACKGROUND R ETINOPATHY. CONTINUE TO MONITOR us Historical Provider HEALTH MAINTENANCE Final Res ult SEP OFFICE * MM MAMMO DIGITAL PRATIBHA SCREEN BILAT (11/24/2023 10:02 AM EDT) Anatomical Region Laterality Modality Breast Bilateral Mammography 11/24/2023 10:0 2 AM EDT Impressions 11/24/2023 12:47 PM EDT Negative ([id number]) RECOMMENDATION: Routine Screening Mammogram in 1 Year COMMENTS: Narrative 11/24/2023 12:47 PM EDT EXAM: MM MAMMO DIGITAL PRATIBHA SCREEN BILAT EXAM DATE: 11/24/2023 10:02 AM INDICATION: Z12.31-Encounter for screening mammogram for malignant neoplasm of [id number] COMPARISON STUDIES: Compared with prior studies the most recent being 05/01/2018 and 04/04/2017 TISSUE DENSITY: There are scattered areas of fibroglandular density. FINDINGS: No mammographic evidence of malignancy. Procedure Note Devonte Harris MD - 11/24/2023 EXAM: MM MAMMO DIGITAL PRATIBHA SCREEN BILAT EXAM DATE: 11/24/2023 10:02 AM INDICATION: Z12.31-Encounter for screening mammogram for malignantneoplasm of [id number] COMPARISON STUDIES: Compared with prior studies the most recent being05/01/2018 and 04/04/2017 TISSUE DENSITY: There are scattered areas of fibroglandular density. FINDINGS: No mammographic evidence of malignancy. IMPRESSION: Negative ([id number]) RECOMMENDATION: Routine Screening Mammogram in 1 Year COMMENTS: us Viral Anaya V, DO IMG MAMMOGRAPHY ORDERABLES Fin al Result * COLOGUARD (04/22/2022 12:08 PM EST) COLOGUARD CLINICAL REPORT Negative Negative [facility] Comment: NEGATIVE TEST RESULT. A negative Cologuard result indicates a low likelihood that a colorectal cancer (CRC) or advanced adenoma (adenomatous polyps with more advanced pre-malignant features) is present. The chance that a person with a negative Cologuard test has a colorectal cancer is less than 1 in 1500 (negative predictive value >99.9%) or has an advanced adenoma is less than 5.3% (negative predictive value 94.7%). These data are based on a prospective cross-sectional study of 10,000 individuals at average risk for colorectal cancer who were screened with both Cologuard and colonoscopy. (Romelia Bernal, N Engl J Med 2014;370(14):5507-0011) The normal value (reference range) for this assay is negative. COLOGUARD RE-SCREENING RECOMMENDATION: Periodic colorectal cancer screening is an important part of preventive healthcare for asymptomatic individuals at average risk for colorectal cancer. Following a negative Cologuard result, the [place] Cancer Society and U.S. Multi-Society Task Force screening guidelines recommend a Cologuard re-screening interval of 3 years. References: [place] Cancer Society Guideline for Colorectal Cancer Screening: https://www.cancer.org/cancer/xlzib-ufnarl-vuoevt/mwnvraqhf-kwgayhuel-emnlysw/ac s-rec ommendations.html.; Zan DK, Irving CR, Matthew DesirK, Colorectal Cancer Screening: Recommendations for Physicians and Patients from the U.S. Multi-Society Task Force on Colorectal Cancer Screening , Am J Gastroenterology 2017; 112:3272-9691. TEST DESCRIPTION: Composite algorithmic analysis of stool DNA-biomarkers with hemoglobin immunoassay. Quantitative values of individual biomarkers are not reportable and are not associated with individual biomarker result reference ranges. Cologuard is intended for colorectal cancer screening of adults of either sex, 45 years or older, who are at average-risk for colorectal cancer (CRC). Cologuard has been approved for use by the U.S. FDA. The performance of Cologuard was established in a cross sectional study of average-risk adults aged 50-84. Cologuard performance in patients ages 45 to 49 years was estimated by sub-group analysis of near-age groups. Colonoscopies performed for a positive result may find as the most clinically significant lesion: colorectal cancer [4.0%], advanced adenoma (including sessile serrated polyps greater than or equal to 1cm diameter) [20%] or non- advanced adenoma [31%]; or no colorectal neoplasia [45%]. These estimates are derived from a prospective cross-sectional screening study of 10,000 individuals at average risk for colorectal cancer who were screened with both Cologuard and colonoscopy. (Romelia Bernal, N Engl J Med 2014;370(14):2795-4900.) Cologuard may produce a false negative or false positive result (no colorectal cancer or precancerous polyp present at colonoscopy follow up). A negative Cologuard test result does not guarantee the absence of CRC or advanced adenoma (pre-cancer). The current Cologuard screening interval is every 3 years. ([place] Cancer Society and U.S. Multi-Society Task Force). Cologuard performance data in a 10,000 patient pivotal study using colonoscopy as the reference method can be accessed at the following location: www.[employer]/results. Additional description of the Cologuard test process, warnings and precautions can be found at www.cologuard.com. Stool 04/22/2022 12:0 8 PM EST 04/24/2022 2:41 PM EST Viral Anaya V, DO EXACT SCIENCE - ORDERABLES Fin al Result Performing Organization Address [facility] Co de Phone Number [employer], [address] [employer] [address] [place] [address] * (ABNORMAL) MICROALBUMIN/CREATININE RATIO URINE (10/18/2021 1:20 PM EDT) Urine Microalb 181.8 mg/L 10/18/2021 7:52 PM EDT [facility], [facility] Urine Creatinine 103.3 mg/dL 10/18/2021 7:52 PM EDT [facility], [facility] Ur Microalb/Creat 176(H) 0 - 30 mg/g 10/18/2021 7:52 PM EDT [facility], [facility] Urine URINE SPECIMEN COLLECTION / Unknown 10/18/2021 1:20 PM EDT 10/18/2021 1:21 PM EDT us Viral Anaya V, DO URINE ORDERABLES Final Result Performing Organization Address [facility] Co de Phone Number [employer] [address] [facility] , [place] [address] * 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 (PAP ONLY) (12/16/2017 10:42 AM EDT) CASE REPORT Gynecologic Cytology Report Case: [id number] Authorizing Provider: Mackenzie Calderon MD Collected: 12/16/2017 1042 Ordering Location: [facility] Received: 12/16/2017 1042 First Screen: [place] [place] CT Specimen: LIQUID-BASED PAP - CERVICAL/ENDOCERV ICAL, Cervix, Endocervical 12/18/2017 10:15 AM EDT [facility] PAP FINAL DIAGNOSIS Negative for intraepithelial lesion or malignancy 12/18/2017 10:15 AM EDT [facility] at 1015 EDT MICROSCOPIC DESCRIPTION Microscopic examination is performed and the findings corroborate the diagnosis. 12/18/2017 10:15 AM EDT [facility] PAP SMEAR ADEQUACY Satisfactory for evaluation 12/18/2017 10:15 AM EDT [facility] ENDOCERVICAL T-ZONE Transformation zone present 12/18/2017 10:15 AM EDT [facility] EMBEDDED IMAGES 10:15 AM EDT [facility] PAP DISCLAIMER The Pap Smear is a screening test that aids in the detection of cervical cancer and cancer precursors. Both false positive and false negative results can occur. The test should be used at regular intervals, and positive results should be confirmed before definitive therapy. Processed using the ThinPrep Digital Performance Analyst Automated cytology screening device ([employer]). 12/18/2017 10:15 AM EDT [facility] Thin Prep ENDOCERVICAL STRUCTURE / Unknown 12/16/2017 10:42 AM EDT 12/16/2017 10:42 AM EDT us Mackenzie Calderon MD CYTOLOGY ORDERABLES Final Res ult [facility] [address] [place] [address] from Last 3 Months or Most Recently Relevant to Health Maintenance [place] [address] [place] [address] MEDICARE PPO MR [employer] MEDICARE PPO MR [address] [place] [address] Advance Directives For more information, please contact: [phone] * Full Code (Latest Code Status on File) Date Activated Date Inactivated Comments 04/22/2019 3:08 PM 04/29/2019 5:37 PM * Full Code Date Activated Date Inactivated Comments 04/22/2019 3:08 PM 04/22/2019 3:08 PM * Full Code Date Activated Date Inactivated Comments 10/05/2017 6:41 PM 10/06/2017 4:04 PM * Full Code Date Activated Date Inactivated Comments 12/20/2015 5:07 PM 12/22/2015 8:26 PM Care Teams Tax Accounting Assistant Relationship Specialty Start Date End Date Parish Anaya DO [address] [place] [phone] PCP - General Family Medicine 10/11/14 Selin Belcher MD [address] [facility] [address] [place] [id number] Internal Medicine-Endocrinology, Diabetes & Metabolism 03/08/14
--- OUTSIDE RECORDS SUMMARY | 2024-09-24 23:22 | XMS_ITS | Encounter Summary ---
Author Organization [place] [address] Care Team Providers Care Assayer Helper Name Role Phone Selin Belcher MD Unavailable [phone] Héctor Espinoza DO, Viral Primary Care Provider [phone] Reason for Visit * Reason Onset Date Comments Medication Refill 08/24/2024 Levetiracetam Encounter Details Date Type Department Care Team (Late st Contact Info) Description 08/24/2024 Refill SEP Neurology [facility] [address] [place] [address] Edouard Ferguson MD [address] ENGINEERING AND OPERATIONS DIRECTOR [address] [address] Medication Refill (Levetiracetam) Social History Tobacco Use Types Packs/Day Years [...] Date Recorded PHQ-2 Total Score 0 10/27/2023 [facility] [place] of Occupat ional Health - Occupational Stress [...] Author No 10/27/2023 7:59 AM EDT [facility] JENNIFER * Does this person have difficulty dressing or bathing? Answer Date of Assessment Author No 10/27/2023 7:59 AM EDT MastJENNIFER * Because of a physical, mental or emotional condition, does this person have difficulty doing errands alone such as visiting a doctor's office or shopping? Answer Date of Assessment Author No 10/27/2023 7:59 AM EDT [facility] JENNIFER documented as of this encounter Mental Status * Because of a physical, mental or emotional condition, does this person have serious difficulty concentrating, remembering or making decisions? Answer Entry Date Author No 10/27/2023 7:59 AM EDT [facility] JENNIFER documented in this encounter Ordered Prescriptions Prescription Sig Dispense Quantity Refills Last Filled Start Date End Date levETIRAcetam (KEPPRA) 500 mg Oral TabletIndications:M uscle spasticity,Multiple sclerosis, relapsing-remitting (HCC),Epilepsy, focal (HCC) Take 1 Tablet by mouth 2 times daily. 60 Tablet 9 08/24/2024 documented in this encounter Miscellaneous Notes * Telephone Encounter - Fay Jiménez RMA - 08/24/2024 9:26 AM EDT Kelli calls requesting a refill on Levetiracetam Medication Details: Name: Levetiracetam Tablet Dose: 500mg Sig: take 1 tab BID Side effects: na Last office visit: 04/28/24 Next office visit: 1 year Neurology notes reviewed: Yes Need COLTON/COLTON result: N/A Last Urine Drug Screen (must be at least annual if on controlled substance): N/A Drug Contract Signed: N/A documented in this encounter Plan of Treatment [...] documented as of this encounter Visit Diagnoses Diagnosis Muscle spasticity Spasm of muscle Multiple sclerosis, relapsing-remitting (HCC) Multiple sclerosis Epilepsy, focal (HCC) Localization-related (focal) (partial) epilepsy and epileptic syndromes with simple partial seizures, without mention of intractable epilepsy documented in this encounter Discontinued Medications Medication Sig Discontinue Reason Start Date End Da te levETIRAcetam (KEPPRA) 500 mg Oral TabletIndications:Muscle spasticity,Multiple sclerosis, relapsing-remitting (HCC),Epilepsy, focal (HCC) Take 1 Tablet by mouth 2 times daily. Reorder 01/19/2024 08/24/2024 documented as of this encounter Care Teams Assayer Helper Relationship Specialty Start Date End Date Parish Anaya DO [address] [place] [phone] PCP - General Family Medicine 10/11/14 Selin Belcher MD [address] [phone] Internal Medicine-Endocrinology, Diabetes & Metabolism 03/08/14 documented as of this encounter
--- OUTSIDE RECORDS SUMMARY | 2024-09-24 23:23 | XMS_ITS | Encounter Summary ---
Author Organization [place] [address] Care Team Providers Care Commercial Account Officer Name Role Phone Selin Belcher MD Unavailable [phone] Héctor Espinoza DO, Viral Primary Care Provider Reason for Visit * Reason Onset Date Comments Medication Refill 08/12/2024 Nortriptyline Encounter Details Date Type Department Care Team (Late st Contact Info) Description 08/12/2024 Refill SEP Neurology [facility] [address] [place] [address] Edouard Ferguson MD [address] BUSINESS PROCESS COORDINATOR [address] [address] Medication Refill (Nortriptyline) Social History Tobacco Use Types Packs/Day Years [...] Date Recorded PHQ-2 Total Score 0 10/27/2023 [facility] [place] of Occupat ional Health - Occupational Stress [...] place to sleep or slept in a residential (including now)? No 12/04/2022 Sexually Active Control [...] 10/27/2023 7:59 AM EDT Mast RMA documented in this encounter Ordered Prescriptions Prescription Sig Dispense Quantity Refills Last Filled Start Date End Date nortriptyline (PAMELOR) 50 mg Oral CapsuleIndications :Type 1 diabetes mellitus with diabetic neuropathy (HCC) Take 2 Capsules by mouth nightly. 60 Capsule 11 08/12/2024 documented in this encounter Miscellaneous Notes * Telephone Encounter - Fay Jiménez RMA - 08/12/2024 8:39 AM EDT Medication Details: Name: Nortriptyline Tablet Dose: 50mg Si caps qhs Side effects: N/A Last office visit: 04/28/24 Next office visit: [...] as of this encounter Visit Diagnoses Diagnosis Type 1 diabetes mellitus with diabetic neuropathy (HCC) Type I (juvenile type) diabetes mellitus with neurological manifestations, not stated as uncontrolled documented in this encounter Discontinued Medications Medication Sig Discontinue Reason Start Date End Da te nortriptyline (PAMELOR) 50 mg Oral CapsuleIndications:Type 1 diabetes mellitus with diabetic neuropathy (HCC) Take 2 Capsules by mouth nightly. Reorder 01/19/2024 08/12/2024 documented as of this encounter Care Teams Commercial Account Officer Relationship Specialty Start Date End Date Parish Anaya DO [address] [place] [phone] PCP - General Family Medicine 10/11/14 Selin Belcher MD [address] [address] Internal Medicine-Endocrinology, Diabetes & Metabolism 03/08/14 documented as of this encounter
--- OUTSIDE RECORDS SUMMARY | 2024-09-24 23:23 | XMS_ITS | Encounter Summary ---
Author Organization [place] [address] Care Team Providers Care Electrical Power Station Technician Name Role Phone Selin Belcher MD Unavailable [phone] Héctor Espinoza DO, Viral Primary Care Provider [phone] Reason for Visit * Reason Onset Date Comments Results 08/27/2024 A1C Encounter Details Date Type Department Care Team (Latest Contact Info) Description 08/27/2024 Results Follow-Up [facility] [address] [place] [address] Yasemin Gonzales, RMA [address], [place] [id number] HEMOGLOBIN A1C, CBC WITH DIFF, COMPREHENSIVE METABOLIC PANEL, Additional followed-up results: 2 Social History Tobacco Use Types Packs/Day Years [...] Recorded PHQ-2 Total Score 0 10/27/2023 [facility] [place] of Occupat ional Health - Occupational Stress [...] EDT Mast RMA documented in this encounter Miscellaneous Notes * Telephone Encounter - Laura Jordan - 09/22/2024 10:55 AM EDT Select the most appropriate reason for this telephone message: Patient Returning Call Reason for call: call back Information relayed to patient: yes Patient has additional questions: No Further follow-up needed? no Return Method of Communication: N/A Additional Information: attempted to schedule f/u appt. Pt. States she will call back to schedule. * Telephone Encounter - Rebeca Meyers RMA - 09/16/2024 12:20 PM EDT Images from the original note were not included. Select the most appropriate reason for this telephone message: Follow Up Follow Up Who is Calling:Patient What is the caller following up on (make sure to reference any prior documentation/encounter): patient is calling to f/u to see what her A1C was on 08/27/24 - information not released as call center isn't seeing PCP results in chart - please advise patient. Further follow-up needed?:Yes Return Method of Communication:Phone call Additional Information:N/A * Telephone Encounter - Mellissa Gordon RMA - 08/27/2024 9:03 AM EDT Spoke with pt Informed of glucose level Pt is asymptomatic and feeling fine documented in this encounter Plan of Treatment [...] on filedocumented in this encounter Care Teams Electrical Power Station Technician Relationship Specialty Start Date End Date Parish Anaya DO [address] [place] [id number] PCP - General Family Medicine 10/11/14 Selin Belcher MD [address] [address] Internal Medicine-Endocrinology, Diabetes & Metabolism 03/08/14 documented as of this encounter
--- OUTSIDE RECORDS SUMMARY | 2024-09-24 23:23 | XMS_ITS | Encounter Summary ---
Author Organization [place] [address] Care Team Providers Care Industrial Renderer Name Role Phone Selin Belcher MD Unavailable [phone] Anaya V DO, Viral Primary Care Provider [phone] Reason for Visit * Reason Onset Date Comments Symptoms (Only Use If Pt Pushes Back On Scheduli ng A Visit) 09/24/2024 vomiting Encounter Details Date Type Department Care Team (Late st Contact Info) Description 09/24/2024 Telephone [facility] [address] [place] [address] Anaya, Viral V, DO [address] [place] [address] Symptoms (Only Use If Pt Pushes Back On Scheduling A Visit) (vomiting) Social History Tobacco Use Types Packs/Day Years [...] Date Recorded PHQ-2 Total Score 0 10/27/2023 [facility] [place] of Occupat ional Health - Occupational Stress [...] EDDasilva RMA * Does this person have serious [...] Refills Last Filled Start Date End Date ondansetron (ZOFRAN) 4 mg Oral TabletIndications: Nausea Take 1 Tablet by mouth every 8 hours as needed for Nausea for up to 7 days. 21 Tablet 09/24/2024 10/01/2024 documented in this encounter Miscellaneous Notes * Telephone Encounter - Mellissa Gordon RMA - 09/24/2024 11:34 AM EDT Medication sent Pt notified * Telephone Encounter - Parish Anaya DO - 09/24/2024 11:07 AM EDT Okay for zofran 4 mg po tid prn nausea for 7 days If any pain, fever, or worsening symptoms, then ER * Telephone Encounter - Su Allison - 09/24/2024 10:40 AM EDT Select the most appropriate reason for this telephone message: Symptoms Call Who is reporting the symptoms: Patient What symptom(s) is the patient experiencing: vomiting x 3 days/chills sweats How long have symptoms been present: 3 day(s) ago Has the patient been seen for this:No If no, was an appointment/E-Visit offered/suggested? Yes, only wants to see Dr. Anaya no appts available Has the patient tried anything to relieve the symptoms and did it help: No If pain, what level on scale 1-10 (10 being the greatest): No pain Desired Outcome: RX requesting something for nausea Pharmacy & Location:[facility] Return Method of Communication: Phone Call Was patient transferred to Nurse Triage for additional help? N/A Additional Information: N/A documented in this encounter Plan of [...] as of this encounter Visit Diagnoses Diagnosis Nausea- Primary Nausea alone documented in this encounter Care Teams Industrial Renderer Relationship Specialty Start Date End Date Parish Anaya DO [address] [place] [id number] PCP - General Family Medicine 10/11/14 Selin Belcher MD [address] [phone] Internal Medicine-Endocrinology, Diabetes & Metabolism 03/08/14 documented as of this encounter
[2024-09-24 23:24] LABS: Appearance,Urine CLEAR (Clear); Blood, Urine 1+ (Negative); Color,Urine YELLOW (Yellow); Glucose,Urine (UA) 3+ (Negative); Ketones,Urine 3+ (Negative); Leukocyte Esterase,Urine Negative (Negative); Nitrate,Urine Negative (Negative); PH,Urine 6.5 (5.0-8.5); Protein,Urine 3+ (Negative)
[2024-09-24 23:25] LABS: Microscopic, Urine URINE MICROSCOPIC (MICROSCOPIC)
[2024-09-24 23:28] LABS: Bilirubin,Urine Negative (Negative)
[2024-09-24] MEDS: 0.9 % SODIUM CHLORIDE 1000ML 1,000 ML 999 ML IV ×2 (23:28→23:29)
[2024-09-24 23:33] LABS: Acetone, Serum (Rapid) Large (None Detect)
[2024-09-24] MEDS: PROMETHAZINE HCL 25MG/ML 1ML VIAL 25 MG IV (23:34)
[2024-09-24 23:35] LABS: Alanine Aminotransferase 60 U/L (12-78); Albumin Level 4.7 g/dl (3.5-5.0); Albumin/Globulin Ratio 1.3 (1.1-1.8); Alkaline Phosphatase 127 U/L (38-126); Anion Gap 20.8 mEq/L (5-15); Aspartate Amino Transferase 47 U/L (14-36); Bilirubin,Total 0.9 mg/dl (0.2-1.3); Blood Urea Nitrogen 19 mg/dl (7-17); Calcium 10.2 mg/dl (8.4-10.2); Carbon Dioxide 31 mmol/L (22.0-30.0); Chloride 88 mmol/L (98-107); Creatinine Clearance Estimated 126 mL/min (50-200); Estimated Glomerular Filt Rate 88 ml/min (>60); GFR (African American) 107 ML/MIN (>60); Globulin 3.5 g/dL (1.3-3.2); Phosphorous 3.4 mg/dl (2.5-4.5); Potassium 3.8 mmoL/L (3.5-5.1); Sodium 136 mmol/L (136-145); Total Protein,Serum 8.2 g/dl (6.3-8.2)
[2024-09-24 23:37] LABS: Glucose 428 mg/dl (74-100)
[2024-09-24] MEDS: SODIUM CHLORIDE 0.9% 25ML BAG 25 ML IV (23:38)
--- NOTE | 2024-09-24 23:38 | PC.NURSE ---
critical called from lab, Glucose 428. notified
[2024-09-24 23:42] LABS: Bacteria,Urine 3+ /lpf; Yeast,Urine Occasional /lpf
[2024-09-24] MEDS: humaLOG 100 UNITS/ML 10ML VIAL (SSI) 20 UNIT SUBCUT (23:44)
[2024-09-24 23:50] LABS: Basophils # 0.1 K/mm3 (0-0.2); Basophils % 0.7 % (0.1-2.0); Eosinophils % 0.1 % (0.1-12.0); Hematocrit 37.1 % (37.0-47.0); Hemoglobin 12.2 g/dL (12.2-16.2); Immature Granulocytes # 0.05 10^3uL; Immature Granulocytes % 0.5 %; Lymphocytes # 0.7 K/mm3 (0.7-4.5); Lymphocytes % 6.7 % (10-50); Mean Corpuscular HGB Conc 32.9 g/dL (31.8-35.4); Mean Corpuscular Volume 91.4 fl (81-99); Mean Platelet Volume 12.2 fl (7.4-10.4); Monocytes # 0.5 K/mm3 (0.1-1.0); Monocytes % 4.2 % (1.7-9.3); Neutrophils # 9.6 K/mm3 (1.8-7.8); Neutrophils % 87.8 % (37.0-80.0); Nucleated Red Blood Cells # 0 10^3/uL; Nucleated Red Blood Cells % 0 %; Platelet Count 175 K/mm3 (142-424); Red Blood Count 4.06 M/mm3 (4.20-5.40); Red Cell Distribution Width 12.2 % (11.5-17.5); Red Cell Distribution Width-SD 40.9 fL
[2024-09-24 23:57] LABS: Lipase 48 U/L (23-300)
[2024-09-25] VITALS (19 sets, daily range): BP systolic 121–168; BP diastolic 62–91; PULSE 68–106; RESP 12–22; TEMP 36.3–37.5; O2SAT 92–97; BMI 31.1
[2024-09-25 00:05] LABS: Hemoglobin A1C 10.8 % (4.0-6.0)
[2024-09-25] MEDS: CEFTRIAXONE SODIUM 2 GM in 0.9 % SODIUM CHLORIDE 100 ML IV (00:21)
[2024-09-25 01:19] LABS: Anion Gap 21.2 mEq/L (5-15); Blood Urea Nitrogen 16 mg/dl (7-17); Calcium 9.2 mg/dl (8.4-10.2); Carbon Dioxide 25 mmol/L (22.0-30.0); Chloride 97 mmol/L (98-107); Creatinine Clearance Estimated 147 mL/min (50-200); Estimated Glomerular Filt Rate 105 ml/min (>60); GFR (African American) 128 ML/MIN (>60); Glucose 226 mg/dl (74-100); Magnesium 1.8 mg/dl (1.6-2.3); Phosphorous 2.7 mg/dl (2.5-4.5); Potassium 3.2 mmoL/L (3.5-5.1); Sodium 140 mmol/L (136-145)
[2024-09-25] MEDS: D5W/0.9% NaCl w/20mEq KCL 1,000 ML 125 ML IV (01:37)
[2024-09-25 01:52] LABS: Lactic Acid 4.2 mmol/L (0.7-2.1)
[2024-09-25] MEDS: INSULIN REGULAR, HUMAN 100 UNIT in 0.9 % SODIUM CHLORIDE 100 ML IV (01:54)
--- NOTE | 2024-09-25 01:54 | PC.NURSE ---
Received call from lab. Patients lactic is 4.2. Call was placed to hospitalist Kiki Mahoney APRN.
--- NOTE | 2024-09-25 02:00 | P.HP_ITS ---
<Statement entered by Rashi Gallardo MD - 09/25/24 18:29> Rounded on patient after nurse practitioner. Personally examined and interviewed patient. Agree with exam findings and care plan as documented. History of Present Illness *Admission Date: 09/24/24 *Reason for visit:: Nausea and vomiting *History of present illness: Ms. Núñez is a 49-year-old female presents ER with complaints of nausea and vomiting. Patient has past medical history of type 1 diabetes mellitus, seizure disorder, and multiple sclerosis. Patient states that nausea and vomiting started on Friday. She states that she tried to make an appointment with her PCP but they were not available. She states they offered to have her see someone else in the office but she declined. She states she called back again the next day and a prescription for vertigo was sent to her pharmacy. She states on Friday and Friday her blood sugars were running low. She states she continues to have nausea and vomiting greater than 10 times. She states she developed a headache 3 days ago and cold and heat intolerance. She reports today that her blood sugar was running high. She states she uses sliding scale insulin and Tresiba at nighttime. She states she has been taking her medica tions as prescribed. Patient denies fever, cough, congestion, runny nose, dyspnea, chest pain, diarrhea, constipation, lightheadedness, dizziness, or syncope. [facility] Disclaimer: The information contained in this section may have been updated after the patient was seen, as this information can be updated by other users. Medical History (Updated 09/25/24 @ 02:38 by Kiki Mahoney APRN) Ankle fracture, right Femur fracture, right Seizure disorder Multiple sclerosis Diabetes mellitus type 1 Surgical History (Updated 09/25/24 @ 01:09 by Linda Escobar RN) History of sinus surgery History of tonsillectomy Family History (Updated 09/25/24 @ 01:09 by Linda Escobar RN) Other Family history of brain aneurysm Family history of cancer Family history of diabetes mellitus type II Family history of myocardial infarction Family history of stroke Social History (Updated 09/25/24 @ 01:10 by Linda Escobar RN) Smoking Status: Former smoker alcohol intake: former current occupational status: previously employed and disabled Travel in the last 8 weeks?: None Contact w/someone who lives/traveled outside [place] past 30 days?: No Exposure to someone with infectious disease in past 14 days?: No Do you have a fever (greater than 100.4 F or 38 C)?: No Have you tested positive for COVID-19?: No Exposed to someone with COVID-19 in past 14 days?: No Do you have a sore throat?: No Do you have a cough?: No Do you have any weakness?: No Are you experiencing any nausea/vomitting?: Yes Do you have any diarrhea?: No Are you experiencing any unusual bleeding?: No Do you have any muscle aches/pain?: No Do you have any abdominal pain?: No Are you experiencing loss of taste or smell?: No Review of Systems Constitutional Constitutional: Reports chills, Denies fever(s) and Reports headache(s) ENT Ears, Nose, Mouth, and Throat: Denies dizziness, Reports headache(s) and Denies nasal discharge *Cardiovascular Cardiovascular: Denies chest pain and Denies dyspnea *Respiratory Respiratory: Denies cough and Denies dyspnea *Gastrointestinal Gastrointestinal: Denies abdominal pain, Denies constipation, Denies diarrhea, Reports nausea and Reports vomiting *Genitourinary Genitourinary: Reports system reviewed and no additional complaints, except as documented *Musculoskeletal Musculoskeletal: Reports system reviewed and no additional complaints, except as documented *Neurologic Neurologic: Denies dizziness and Reports headache(s) Allergic/Immunologic Allergic/Immunologic: Denies seasonal rhinorrhea Meds Home Medications and Allergies New Prescriptions to Start Prescriptions: Allergies Allergy/AdvReac Type Severity Reaction Status Date / Time lisinopril Allergy Vomiting Verified 09/25/24 01:01 varenicline (From Chantix) Allergy Vomiting Verified 09/25/24 01:01 Exam Data for Last 24 hours Vital signs and Labs for Last 24 Hours: Temp Pulse Resp BP Pulse Ox O2 Del Method 97.9 F 90 16 138/67 99 Room Air 09/25/24 00:29 09/25/24 00:29 09/25/24 00:29 09/25/24 00:29 09/24/24 23:07 09/25/24 00:29 Laboratory Results - last 24 hr 09/24/24 00:48: Lactate 4.2 H 09/24/24 00:49: Sodium 140, Potassium 3.2 L, Chloride 97 L, Carbon Dioxide 25, Anion Gap 21.2 H, BUN 16, Creatinine 0.60, Estimated Creat Clear 147, Estimated GFR 105, Est GFR ( Amer) 128, Glucose 226 H, Calcium 9.2, Phosphorus 2.7, Magnesium 1.8 09/24/24 23:06: WBC 11.0 H, RBC 4.06 L, Hgb 12.2, Hct 37.1, MCV 91.4, MCH 30.0, MCHC 32.9, RDW 12.2, Plt Count 175, MPV 12.2 H, Neut % (Auto) 87.8 H, Lymph % (Auto) 6.7 L, [place] % (Auto) 4.2, Eos % (Auto) 0.1, Baso % (Auto) 0.7, Neut # (Auto) 9.6 H, Lymph # (Auto) 0.7, [place] # (Auto) 0.5, Eos # (Auto) 0.0, Baso # (Auto) 0.1, VBG pH 7.45 H, VBG pCO2 40.7, VBG pO2 37.5, VBG HCO3 27.6, VBG Total CO2 28.8 H, VBG O2 Saturation 71.0 H, VBG Base Excess 3.6 H, VBG Lactic Acid 3.3 H, Sodium 136, Potassium 3.8, Chloride 88 L, Carbon Dioxide 31 H, Anion Gap 20.8 H, BUN 19 H, Creatinine 0.70, Estimated Creat Clear 126, Estimated GFR 88, Est GFR ( Amer) 107, Glucose 428 H* D, Hemoglobin A1c 10.8 H, Calcium 10.2, Phosphorus 3.4 D, Magnesium 2.0 D, Total Bilirubin 0.9, AST 47 H, ALT 60, Alkaline Phosphatase 127 H, Total Protein 8.2, Albumin 4.7, Globulin 3.5 H, Albumin/Globulin Ratio 1.3, Lipase 48, Acetone Level Large 09/24/24 23:19: Urine Color Yellow, Urine Appearance Clear, Urine pH 6.5, Ur Specific [place] 1.020, Urine Protein 3+ A, Urine Glucose (UA) 3+, Urine Ketones 3+, Urine Blood 1+ A, Urine Nitrate Negative, Urine Bilirubin Negative, Urine Urobilinogen 1.0, Ur Leukocyte Esterase Negative, Urine RBC 5-10, Urine WBC 10- 20, Ur Squamous Epith Cells 5-10, Urine Bacteria 3+, Urine Yeast Occasional I & O for Last 24 hours: Intake & Output 09/22/24 09/23/24 09/24/24 09/25/24 23:59 23:59 23:59 23:59 Weight 83.915 kg *Routine HEENT Exam Head: Present normocephalic and atraumatic Eye: Present EOMI and PERRL ENT: Present mucous membranes moist and oropharynx clear *Routine Neck Exam Neck: Present supple and full ROM *Routine Respiratory Exam Respiratory: Present CTA bilaterally, normal respiratory effort, able to speak in complete sentences and symmetric chest movement; Absent accessory muscle use or respiratory distress *Routine Cardiovascular Exam Cardiovascular: Present RRR, Normal S1 and Normal S2 *Routine Abdominal Exam Abdominal: Present soft and normoactive bowel sounds; Absent tenderness *Routine Rectal Exam Rectal:: deferred *Routine Genitalia Exam Genitalia:: deferred *Routine Extremities Exam Extremities: Present full ROM, pulses intact and normal capillary refill; Absent edema *Routine Skin Exam Skin: Present intact, dry and warm *Routine Neurological Exam Neurological: Present alert, oriented X3 and CN II-XII intact Assessment and Plan *Assessment and plan (1) DM type 1, not at goal: Status: Acute Category: Medical Code(s): E10.9 - Type 1 diabetes mellitus without complications Plan: Insulin drip (Gap 20.8) Monitor BMP, magnesium, phosphorus every 4 hours Monitor glucose every hour NS at 150 mL an hour When blood glucose reaches 250 or below start D5 1/2 NS +20 meq K+ at 125 mL an hour (2) UTI (urinary tract infection): Status: Acute Category: Medical Code(s): N39.0 - Urinary tract infection, site not specified Plan: Possible urinary tract infection Received Rocephin 2 g in the ER Follow urine culture results and start antibiotics if indicated (3) Nausea: Status: Acute Category: Medical Code(s): R11.0 - Nausea Plan: Reglan 10 mg IVP every 6 hours as needed for nausea vomiting (4) On deep vein thrombosis (DVT) prophylaxis: Status: Acute Category: Medical Code(s): Z79.899 - Other long term care social worker (current) drug therapy Plan: SCDs
[2024-09-25] MEDS: METOCLOPRAMIDE HCL 10MG/2ML VIAL 10 MG IVP ×2 (02:12→10:29)
[2024-09-25 03:21] LABS: Reflex Lactic Add Lactic Reflex
[2024-09-25] MEDS: DEXTROSE 50% 50ML SYRINGE (CRASH CART) 50 ML IVP (03:24)
--- NOTE | 2024-09-25 03:30 | PC.NURSE ---
Patients glucose was checked at 0315 and patients glucose was 54. Patient is NPO so patient is receiving Dextrose 50% 12.5 grams and the insulin drip was stopped at this time. Hospitalist Kiki Mahoney APRN was made aware.
[2024-09-25 03:52] LABS: POC Glucose,Bedside 83 (70-110)
[2024-09-25 03:52] LABS: POC Glucose,Bedside 80 (70-110)
[2024-09-25 03:52] LABS: POC Glucose,Bedside 54 (70-110)
[2024-09-25 03:52] LABS: POC Glucose,Bedside 191 (70-110)
[2024-09-25 03:52] LABS: POC Glucose,Bedside 107 (70-110)
--- NOTE | 2024-09-25 04:15 | PC.NURSE ---
patients glucose was obtained glucose is 55. Patient is to receive 12.5 grams of d-50 due to patient still being npo. Hospitalist Kiki Mahoney APRN made aware and is also putting in an order for prn dextrose of 12.5 grams if glucose is 51-70.
[2024-09-25] MEDS: DEXTROSE 50% 50ML SYRINGE (CRASH CART) 25 ML IVP (04:22)
[2024-09-25 05:23] LABS: Reflex Lactic Add Lactic Reflex
[2024-09-25 05:43] LABS: Chloride 97 mmol/L (98-107); Sodium 140 mmol/L (136-145)
[2024-09-25 05:45] LABS: Blood Urea Nitrogen 14 mg/dl (7-17); Creatinine Clearance Estimated 168 mL/min (50-200); Estimated Glomerular Filt Rate 130 ml/min (>60); GFR (African American) 157 ML/MIN (>60)
[2024-09-25 05:46] LABS: Anion Gap 13.9 mEq/L (5-15); Calcium 8.5 mg/dl (8.4-10.2); Carbon Dioxide 32 mmol/L (22.0-30.0); Glucose 105 mg/dl (74-100); Magnesium 1.8 mg/dl (1.6-2.3)
[2024-09-25 05:50] LABS: Lactic Acid Follow Up (RFLX 1) 4.3 mmol/L (0.7-2.1)
[2024-09-25 05:53] LABS: Potassium 2.9 mmoL/L (3.5-5.1)
[2024-09-25 05:58] LABS: Phosphorous 1.9 mg/dl (2.5-4.5)
--- NOTE | 2024-09-25 06:09 | PC.NURSE ---
Patient given apple juice and belinda crackers to see if she is able to keep them down. Will recheck patients glucose in 15 mins.
[2024-09-25] MEDS: POTASSIUM CHLORIDE 20MEQ TAB 40 MEQ PO ×2 (06:12→10:16)
--- NOTE | 2024-09-25 06:56 | PC.NURSE ---
patients glucose is up to 117 after 2 cups of apple juice and 2 packs of belinda crackers. patient does not feel nausea at this time
[2024-09-25 07:39] LABS: POC Glucose,Bedside 90 (70-110)
[2024-09-25 07:39] LABS: POC Glucose,Bedside 66 (70-110)
[2024-09-25 07:39] LABS: POC Glucose,Bedside 117 (70-110)
[2024-09-25 07:39] LABS: POC Glucose,Bedside 55 (70-110)
[2024-09-25 07:39] LABS: POC Glucose,Bedside 63 (70-110)
[2024-09-25 07:39] LABS: POC Glucose,Bedside 83 (70-110)
[2024-09-25 07:41] LABS: Reflex Lactic (2 hrs) Add Lactic Reflex
[2024-09-25 08:47] LABS: Chloride 95 mmol/L (98-107); Potassium 3.8 mmoL/L (3.5-5.1); Sodium 133 mmol/L (136-145)
[2024-09-25 08:50] LABS: Anion Gap 12.8 mEq/L (5-15); Blood Urea Nitrogen 12 mg/dl (7-17); Calcium 8.2 mg/dl (8.4-10.2); Carbon Dioxide 29 mmol/L (22.0-30.0); Creatinine Clearance Estimated 168 mL/min (50-200); Estimated Glomerular Filt Rate 130 ml/min (>60); GFR (African American) 157 ML/MIN (>60); Glucose 278 mg/dl (74-100); Lactic Acid Follow up (RFLX 2) 2.7 mmol/L (0.7-2.1)
[2024-09-25 08:51] LABS: Magnesium 1.7 mg/dl (1.6-2.3)
[2024-09-25 09:03] LABS: POC Glucose,Bedside 324 (70-110)
[2024-09-25] MEDS: INSULIN GLARGINE 100 UNITS/ML 3ML FLEXPEN 15 UNIT SUBCUT (09:10)
[2024-09-25] MEDS: POTASSIUM PHOS IN 0.9 % NACL 15 MMOL/250 ML PIGGYBACK 62.5 MMOL IV (09:12)
--- NOTE | 2024-09-25 09:44 | PC.NURSE ---
lab notified that Sami wants Labs drawn at 1300 instead of 1200
--- NOTE | 2024-09-25 09:50 | HMH.PHAINT1 ---
Pharmacy Intervention Comments: MEDICATION RECONCILIATION COMPLETE USING EXTERNAL PHARMACY FILL HISTORY.
--- NOTE | 2024-09-25 11:35 | EXP.DC.SUM ---
General Admission date:: 09/24/24 Discharge date: 09/25/24 HPI HPI HPI: Ms. Núñez is a 49-year-old female presents ER with complaints of nausea and vomiting. Patient has past medical history of type 1 diabetes mellitus, seizure disorder, and multiple sclerosis. Patient states that nausea and vomiting started on Friday. She states that she tried to make an appointment with her PCP but they were not available. She states they offered to have her see someone else in the office but she declined. She states she called back again the next day and a prescription for vertigo was sent to her pharmacy. She states on Friday and Friday her blood sugars were running low. She states she continues to have nausea and vomiting greater than 10 times. She states she developed a headache 3 days ago and cold and heat intolerance. She reports today that her blood sugar was running high. She states she uses sliding scale insulin and Tresiba at nighttime. She states she has been taking her medications as prescribed. Patient denies fever, cough, congestion, runny nose, dyspnea, chest pain, diarrhea, constipation, lightheadedness, dizziness, or syncope. Hospital Course Hospital Course Hospital Course: Ms. Núñez is a 49-year-old female with type 1 diabetes who presented with hyperglycemia, elevated anion gap but no magdaleno acidosis. Was started on DKA protocol and had brisk response with closure of anion gap and improvement in glucose. She had missed her insulin due to not feeling well which likely led to the opening of her anion gap. By morning her gap was closed at 14 and glucose under control at 105. Resumed on home regimen. Was supposed to be taking her basal insulin at night but due to low glucose in the morning had decreased her evening dose from 15 units to 6. Missed her dose occasionally. Takes very little with meals, usually 2 to 3 units per her report with her carb correction and sliding scale. A1c obtained at 10.8. Initiated on diabetic diet and tolerated well with good glucose control. Administered long-acting insulin in the morning with Lantus 10 units. Recommend resuming her basal regimen but taking it in the morning instead of night to decrease risk for morning lows. Patient states understanding. Also found to have UTI on admission, initiated cefdinir to complete 5 days of antibiotics. Culture still pending at time of discharge. Extensive discussion about insulin regimen and need to adhere to her basal bolus regimen to decrease risk for DKA. Counseled to follow-up with her planned giving officer in the next 1 to 2 weeks for further management given her uncontrolled diabetes with A1c of 10.8. Patient states understanding Total time spent on discharge 32 minutes in counseling, documentation, chart review, and direct care with patient. Exam Data for Last 24 hours Vital signs and Labs for Last 24 Hours: Temp Pulse Resp BP Pulse Ox O2 Del Method 97.7 F 77 16 140/64 95 BiPAP 09/25/24 07:18 09/25/24 08:24 09/25/24 08:24 09/25/24 08:24 09/25/24 08:24 09/25/24 09:00 Laboratory Results - last 24 hr 09/24/24 00:48: Lactate 4.2 H 09/24/24 00:49: Sodium 140, Potassium 3.2 L, Chloride 97 L, Carbon Dioxide 25, Anion Gap 21.2 H, BUN 16, Creatinine 0.60, Estimated Creat Clear 147, Estimated GFR 105, Est GFR ( Amer) 128, Glucose 226 H, Calcium 9.2, Phosphorus 2.7, Magnesium 1.8 09/24/24 23:06: WBC 11.0 H, RBC 4.06 L, Hgb 12.2, Hct 37.1, MCV 91.4, MCH 30.0, MCHC 32.9, RDW 12.2, Plt Count 175, MPV 12.2 H, Neut % (Auto) 87.8 H, Lymph % (Auto) 6.7 L, [place] % (Auto) 4.2, Eos % (Auto) 0.1, Baso % (Auto) 0.7, Neut # (Auto) 9.6 H, Lymph # (Auto) 0.7, [place] # (Auto) 0.5, Eos # (Auto) 0.0, Baso # (Auto) 0.1, VBG pH 7.45 H, VBG pCO2 40.7, VBG pO2 37.5, VBG HCO3 27.6, VBG Total CO2 28.8 H, VBG O2 Saturation 71.0 H, VBG Base Excess 3.6 H, VBG Lactic Acid 3.3 H, Sodium 136, Potassium 3.8, Chloride 88 L, Carbon Dioxide 31 H, Anion Gap 20.8 H, BUN 19 H, Creatinine 0.70, Estimated Creat Clear 126, Estimated GFR 88, Est GFR ( Amer) 107, Glucose 428 H* D, Hemoglobin A1c 10.8 H, Calcium 10.2, Phosphorus 3.4 D, Magnesium 2.0 D, Total Bilirubin 0.9, AST 47 H, ALT 60, Alkaline Phosphatase 127 H, Total Protein 8.2, Albumin 4.7, Globulin 3.5 H, Albumin/Globulin Ratio 1.3, Lipase 48, Acetone Level Large 09/24/24 23:19: Urine Color Yellow, Urine Appearance Clear, Urine pH 6.5, Ur Specific [place] 1.020, Urine Protein 3+ A, Urine Glucose (UA) 3+, Urine Ketones 3+, Urine Blood 1+ A, Urine Nitrate Negative, Urine Bilirubin Negative, Urine Urobilinogen 1.0, Ur Leukocyte Esterase Negative, Urine RBC 5-10, Urine WBC 10-20, Ur Squamous Epith Cells 5-10, Urine Bacteria 3+, Urine Yeast Occasional 09/25/24 01:15: POC Glucose 191 H 09/25/24 02:02: POC Glucose 107 09/25/24 02:43: POC Glucose 83 09/25/24 03:18: POC Glucose 54 L 09/25/24 03:42: POC Glucose 80 09/25/24 04:14: POC Glucose 55 L 09/25/24 04:30: Sodium 140, Potassium 2.9 L* D, Chloride 97 L, Carbon Dioxide 32 H, Anion Gap 13.9, BUN 14 D, Creatinine 0.50 L D, Estimated Creat Clear 168, Estimated GFR 130, Est GFR ( Amer) 157 D, Glucose 105 H D, Lactate 4.3 H, Calcium 8.5, Phosphorus 1.9 L D, Magnesium 1.8 09/25/24 04:39: POC Glucose 90 09/25/24 05:20: POC Glucose 66 L 09/25/24 05:50: POC Glucose 63 L 09/25/24 06:27: POC Glucose 83 09/25/24 06:52: POC Glucose 117 H 09/25/24 08:20: Sodium 133 L, Potassium 3.8 D, Chloride 95 L, Carbon Dioxide 29, Anion Gap 12.8, BUN 12, Creatinine 0.50 L, Estimated Creat Clear 168, Estimated GFR 130, Est GFR ( Amer) 157, Glucose 278 H D, Lactate 2.7 H, Calcium 8.2 L, Phosphorus 2.0 L, Magnesium 1.7 09/25/24 08:52: POC Glucose 324 H* I & O for Last 24 hours: Intake & Output 09/22/24 09/23/24 09/24/24 09/25/24 23:59 23:59 23:59 23:59 Intake Total 818.451 / 818.451 Output Total 601 / 601 Balance 217.451 / 217.451 Weight 83.915 kg 79.832 kg Constitutional Constitutional: no acute distress, obese, chronically ill appearing and cooperative *Routine HEENT Exam Head: Present normocephalic Eye: Present EOMI and PERRL ENT: Present mucous membranes moist Comments: edentulous *Routine Neck Exam Neck: Present supple; Absent lymphadenopathy *Routine Respiratory Exam Respiratory: Present CTA bilaterally *Routine Cardiovascular Exam Cardiovascular: Present RRR *Routine Abdominal Exam Abdominal: Present soft and normoactive bowel sounds; Absent tenderness *Routine Rectal Exam Patient deferred: visual exam *Routine Exam Patient deferred: external exam *Routine Extremities Exam Extremities: Absent cyanosis, clubbing or edema *Routine Skin Exam Skin: Present warm; Absent rash *Routine Neurological Exam Neurological: Present alert, oriented X3 and moving all extremities; Absent altered mental status Results Data Completed and Pending Labs on day of discharge: Labs from last 24 hours 09/25/24 09/25/24 09/25/24 08:52 08:20 06:52 WBC RBC Hgb Hct MCV MCH MCHC RDW Plt Count MPV Neut % (Auto) Lymph % (Auto) [place] % (Auto) Eos % (Auto) Baso % (Auto) Neut # (Auto) Lymph # (Auto) [place] # (Auto) Eos # (Auto) Baso # (Auto) VBG pH VBG pCO2 VBG pO2 VBG HCO3 VBG Total CO2 VBG O2 Saturation VBG Base Excess VBG Lactic Acid Sodium 133 L Potassium 3.8 D Chloride 95 L Carbon Dioxide 29 Anion Gap 12.8 BUN 12 Creatinine 0.50 L Estimated Creat Clear 168 Estimated GFR 130 Est GFR ( Amer) 157 Glucose 278 H D POC Glucose 324 H* 117 H Hemoglobin A1c Lactate 2.7 H Calcium 8.2 L Phosphorus 2.0 L Magnesium 1.7 Total Bilirubin AST ALT Alkaline Phosphatase Total Protein Albumin Globulin Albumin/Globulin Ratio Lipase Urine Color Urine Appearance Urine pH Ur Specific [place] Urine Protein Urine Glucose (UA) Urine Ketones Urine Blood Urine Nitrate Urine Bilirubin Urine Urobilinogen Ur Leukocyte Esterase Urine RBC Urine WBC Ur Squamous Epith Cells Urine Bacteria Urine Yeast Acetone Level 09/25/24 09/25/24 09/25/24 06:27 05:50 05:20 WBC RBC Hgb Hct MCV MCH MCHC RDW Plt Count MPV Neut % (Auto) Lymph % (Auto) [place] % (Auto) Eos % (Auto) Baso % (Auto) Neut # (Auto) Lymph # (Auto) [place] # (Auto) Eos # (Auto) Baso # (Auto) VBG pH VBG pCO2 VBG pO2 VBG HCO3 VBG Total CO2 VBG O2 Saturation VBG Base Excess VBG Lactic Acid Sodium Potassium Chloride Carbon Dioxide Anion Gap BUN Creatinine Estimated Creat Clear Estimated GFR Est GFR ( Amer) Glucose POC Glucose 83 63 L 66 L Hemoglobin A1c Lactate Calcium Phosphorus Magnesium Total Bilirubin AST ALT Alkaline Phosphatase Total Protein Albumin Globulin Albumin/Globulin Ratio Lipase Urine Color Urine Appearance Urine pH Ur Specific [place] Urine Protein Urine Glucose (UA) Urine Ketones Urine Blood Urine Nitrate Urine Bilirubin Urine Urobilinogen Ur Leukocyte Esterase Urine RBC Urine WBC Ur Squamous Epith Cells Urine Bacteria Urine Yeast Acetone Level 09/25/24 09/25/24 09/25/24 04:39 04:30 04:14 WBC RBC Hgb Hct MCV MCH MCHC RDW Plt Count MPV Neut % (Auto) Lymph % (Auto) [place] % (Auto) Eos % (Auto) Baso % (Auto) Neut # (Auto) Lymph # (Auto) [place] # (Auto) Eos # (Auto) Baso # (Auto) VBG pH VBG pCO2 VBG pO2 VBG HCO3 VBG Total CO2 VBG O2 Saturation VBG Base Excess VBG Lactic Acid Sodium 140 Potassium 2.9 L* D Chloride 97 L Carbon Dioxide 32 H Anion Gap 13.9 BUN 14 D Creatinine 0.50 L D Estimated Creat Clear 168 Estimated GFR 130 Est GFR ( Amer) 157 D Glucose 105 H D POC Glucose 90 55 L Hemoglobin A1c Lactate 4.3 H Calcium 8.5 Phosphorus 1.9 L D Magnesium 1.8 Total Bilirubin AST ALT Alkaline Phosphatase Total Protein Albumin Globulin Albumin/Globulin Ratio Lipase Urine Color Urine Appearance Urine pH Ur Specific [place] Urine Protein Urine Glucose (UA) Urine Ketones Urine Blood Urine Nitrate Urine Bilirubin Urine Urobilinogen Ur Leukocyte Esterase Urine RBC Urine WBC Ur Squamous Epith Cells Urine Bacteria Urine Yeast Acetone Level 09/25/24 09/25/24 09/25/24 03:42 03:18 02:43 WBC RBC Hgb Hct MCV MCH MCHC RDW Plt Count MPV Neut % (Auto) Lymph % (Auto) [place] % (Auto) Eos % (Auto) Baso % (Auto) Neut # (Auto) Lymph # (Auto) [place] # (Auto) Eos # (Auto) Baso # (Auto) VBG pH VBG pCO2 VBG pO2 VBG HCO3 VBG Total CO2 VBG O2 Saturation VBG Base Excess VBG Lactic Acid Sodium Potassium Chloride Carbon Dioxide Anion Gap BUN Creatinine Estimated Creat Clear Estimated GFR Est GFR ( Amer) Glucose POC Glucose 80 54 L 83 Hemoglobin A1c Lactate Calcium Phosphorus Magnesium Total Bilirubin AST ALT Alkaline Phosphatase Total Protein Albumin Globulin Albumin/Globulin Ratio Lipase Urine Color Urine Appearance Urine pH Ur Specific [place] Urine Protein Urine Glucose (UA) Urine Ketones Urine Blood Urine Nitrate Urine Bilirubin Urine Urobilinogen Ur Leukocyte Esterase Urine RBC Urine WBC Ur Squamous Epith Cells Urine Bacteria Urine Yeast Acetone Level 09/25/24 09/25/24 09/24/24 02:02 01:15 23:19 WBC RBC Hgb Hct MCV MCH MCHC RDW Plt Count MPV Neut % (Auto) Lymph % (Auto) [place] % (Auto) Eos % (Auto) Baso % (Auto) Neut # (Auto) Lymph # (Auto) [place] # (Auto) Eos # (Auto) Baso # (Auto) VBG pH VBG pCO2 VBG pO2 VBG HCO3 VBG Total CO2 VBG O2 Saturation VBG Base Excess VBG Lactic Acid Sodium Potassium Chloride Carbon Dioxide Anion Gap BUN Creatinine Estimated Creat Clear Estimated GFR Est GFR ( Amer) Glucose POC Glucose 107 191 H Hemoglobin A1c Lactate Calcium Phosphorus Magnesium Total Bilirubin AST ALT Alkaline Phosphatase Total Protein Albumin Globulin Albumin/Globulin Ratio Lipase Urine Color Yellow Urine Appearance Clear Urine pH 6.5 Ur Specific [place] 1.020 Urine Protein 3+ A Urine Glucose (UA) 3+ Urine Ketones 3+ Urine Blood 1+ A Urine Nitrate Negative Urine Bilirubin Negative Urine Urobilinogen 1.0 Ur Leukocyte Esterase Negative Urine RBC 5-10 Urine WBC 10-20 Ur Squamous Epith Cells 5-10 Urine Bacteria 3+ Urine Yeast Occasional Acetone Level 09/24/24 09/24/24 09/24/24 23:06 00:49 00:48 WBC 11.0 H RBC 4.06 L Hgb 12.2 Hct 37.1 MCV 91.4 MCH 30.0 MCHC 32.9 RDW 12.2 Plt Count 175 MPV 12.2 H Neut % (Auto) 87.8 H Lymph % (Auto) 6.7 L [place] % (Auto) 4.2 Eos % (Auto) 0.1 Baso % (Auto) 0.7 Neut # (Auto) 9.6 H Lymph # (Auto) 0.7 [place] # (Auto) 0.5 Eos # (Auto) 0.0 Baso # (Auto) 0.1 VBG pH 7.45 H VBG pCO2 40.7 VBG pO2 37.5 VBG HCO3 27.6 VBG Total CO2 28.8 H VBG O2 Saturation 71.0 H VBG Base Excess 3.6 H VBG Lactic Acid 3.3 H Sodium 136 140 Potassium 3.8 3.2 L Chloride 88 L 97 L Carbon Dioxide 31 H 25 Anion Gap 20.8 H 21.2 H BUN 19 H 16 Creatinine 0.70 0.60 Estimated Creat Clear 126 147 Estimated GFR 88 105 Est GFR ( Amer) 107 128 Glucose 428 H* D 226 H POC Glucose Hemoglobin A1c 10.8 H Lactate 4.2 H Calcium 10.2 9.2 Phosphorus 3.4 D 2.7 Magnesium 2.0 D 1.8 Total Bilirubin 0.9 AST 47 H ALT 60 Alkaline Phosphatase 127 H Total Protein 8.2 Albumin 4.7 Globulin 3.5 H Albumin/Globulin Ratio 1.3 Lipase 48 Urine Color Urine Appearance Urine pH Ur Specific [place] Urine Protein Urine Glucose (UA) Urine Ketones Urine Blood Urine Nitrate Urine Bilirubin Urine Urobilinogen Ur Leukocyte Esterase Urine RBC Urine WBC Ur Squamous Epith Cells Urine Bacteria Urine Yeast Acetone Level Large DS: Diagnosis Discharge Diagnosis (1) DM type 1, not at goal: Status: Acute Code(s): E10.9 - Type 1 diabetes mellitus without complications (2) UTI (urinary tract infection): Status: Acute Code(s): N39.0 - Urinary tract infection, site not specified (3) Nausea: Status: Acute Code(s): R11.0 - Nausea (4) On deep vein thrombosis (DVT) prophylaxis: Status: Acute Code(s): Z79.899 - Other senior living (current) drug therapy Meds Home Medications and Allergies Home Medications ?Medication ?Instructions ?Recorded ?Confirmed ?Type atorvastatin 20 mg tablet 20 mg PO HS 09/25/24 09/25/24 History cefdinir 300 mg capsule 300 mg PO BID #10 caps 09/25/24 Rx diroximel fumarate 231 mg 462 mg PO BID 09/25/24 09/25/24 History capsule,delayed release (Vumerity) flash glucose sensor (FreeStyle 09/25/24 09/25/24 History George 14 Day Sensor kit) furosemide 20 mg tablet 20 mg PO DAILY 09/25/24 09/25/24 History insulin degludec 100 unit/mL 15 unit (0.15 mL) SQ DAILY #10 mL 09/25/24 Rx subcutaneous solution (Tresiba U-100 Insulin) levetiracetam 500 mg tablet 500 mg PO BID 09/25/24 09/25/24 History losartan 50 mg tablet 50 mg PO DAILY 09/25/24 09/25/24 History nortriptyline 50 mg capsule 100 mg PO HS 09/25/24 09/25/24 History ondansetron HCl 4 mg tablet 4 mg PO Q6HP PRN Nausea 09/25/24 09/25/24 History tizanidine 4 mg tablet 6 mg PO TID 09/25/24 09/25/24 History venlafaxine 37.5 mg 37.5 mg PO DAILY 09/25/24 09/25/24 History capsule,extended release 24 hr New Prescriptions to Start Prescriptions: Rashi Ross insulin degludec [Tresiba U-100 Insulin] Rashi Gallardo Allergies Allergy/AdvReac Type Severity Reaction Status Date / Time lisinopril Allergy Vomiting Verified 09/25/24 01:01 varenicline (From Chantix) Allergy Vomiting Verified 09/25/24 01:01 Discharge Plan Disposition Patient Disposition: Home, Self-Care Condition: Fair Follow up Plan Follow up with: Parish Anaya, [Primary Care Provider, Medical] - Enter time for follow up Referral Note: Please call on Friday, September 27 to schedule your follow up appointment with your primary care provider. Thank you ! Prescriptions/Medication Reconciliation: New insulin degludec [Tresiba U-100 Insulin] 100 unit/mL solution 15 unit SQ DAILY Qty: 10 0RF cefdinir 300 mg capsule 300 mg PO BID Qty: 10 0RF Continued losartan 50 mg tablet 50 mg PO DAILY Patient Comments: TAKE ONE TABLET BY MOUTH ONCE A DAY venlafaxine 37.5 mg capsule,extended release 24hr 37.5 mg PO DAILY atorvastatin 20 mg tablet 20 mg PO HS Patient Comments: TAKE ONE TABLET BY MOUTH ONCE A DAY tizanidine 4 mg tablet 6 mg PO TID Patient Comments: TAKE 1 & 1/2 TABLETS BY MOUTH 3 TIMES A DAY levetiracetam 500 mg tablet 500 mg PO BID ondansetron HCl 4 mg tablet 4 mg PO Q6HP PRN (Reason: Nausea) furosemide 20 mg tablet 20 mg PO DAILY nortriptyline 50 mg capsule 100 mg PO HS Patient Comments: TAKE 2 CAPSULES BY MOUTH AT BEDTIME (DME) [employer] 14 Day Sensor Kit MISCELLANEOUS Patient Comments: USE ONE SENSOR EVERY 14 DAYS FOR CONTINUEOUS GLUCOSE MONITORING Vumerity 231 mg capsule,delayed release(DR/EC) 462 mg PO BID Problem Reconciliation Problems Reviewed?: Yes Patient Discharge Instructions ACTIVITY: Continue current activity DIET: continue same diet Patient Instructions: Nausea (Alternative Therapy), Type 1 Diabetes, Carbohydrate-Counting Diet, DI for Urinary Tract Infection (UTI), Taking Care of Your Diabetes When You Are Sick, DI for Hyperglycemia -- Adult, DI for Nausea -- Adult, Stop Light Infection Print Language: Yoruba Providers Primary Care Provider: Parish nAaya Admit Provider: Rashi Gallardo Attending Provider: Rashi Gallardo
[2024-09-25] MEDS: humaLOG 100 UNITS/ML 10ML VIAL (SSI) SUBCUT (11:37)
[2024-09-25 11:38] LABS: POC Glucose,Bedside 343 (70-110)
[2024-09-25 12:51] LABS: Anion Gap 12.9 mEq/L (5-15); Blood Urea Nitrogen 10 mg/dl (7-17); Calcium 8.8 mg/dl (8.4-10.2); Carbon Dioxide 28 mmol/L (22.0-30.0); Chloride 94 mmol/L (98-107); Creatinine Clearance Estimated 168 mL/min (50-200); Estimated Glomerular Filt Rate 130 ml/min (>60); GFR (African American) 157 ML/MIN (>60); Glucose 273 mg/dl (74-100); Magnesium 1.7 mg/dl (1.6-2.3); Phosphorous 2.9 mg/dl (2.5-4.5); Potassium 3.9 mmoL/L (3.5-5.1); Sodium 131 mmol/L (136-145)
--- NOTE | 2024-09-27 13:42 | SW/DCPLANNER ---
Spoke with patient on the phone. Patient stated that she is aware of her upcoming appointment. Patient stated that she was able to get her new medicine picked up. Patient stated that she has no concerns or questions at this time. Chase Bravo
--- NOTE | 2024-09-27 15:56 | DIET.NUTRFU ---
Consulted for diet instruction, phone call follow-up patient declined
== END 2024-09-25 13:34 | disposition home or self-care (01) ==
LOC: ER 23:53 → ICU 09-25 00:43 → 2ND 09-25 09:23 → ICU 09-25 09:43
PROVIDERS: Nurse Practitioner Family; Admitting Provider Internal Medicine Adolescent Medicine; Emergency Provider Emergency Medicine; PCP Family Medicine; Visit Provider Internal Medicine Adolescent Medicine
DX: E10.65 Type 1 diabetes mellitus with hyperglycemia (principal); N39.0 Urinary tract infection, site not specified; G40.909 Epilepsy, unspecified, not intractable, without status epilepticus; G35 Multiple sclerosis; E87.3 Alkalosis; E66.9 Obesity, unspecified; Z68.31 Body mass index [BMI] 31.0-31.9, adult; Z87.891 Personal history of nicotine dependence; Z79.01 Long term (current) use of anticoagulants; Z79.899 Other long term (current) drug therapy; Z88.8 Allergy status to other drugs, medicaments and biological substances; Z88.9 Allergy status to unspecified drugs, medicaments and biological substances; Z83.3 Family history of diabetes mellitus; Z82.49 Family history of ischemic heart disease and other diseases of the circulatory system; Z82.3 Family history of stroke; Z80.8 Family history of malignant neoplasm of other organs or systems
CPT/HCPCS: 96361 ×2; 96365; 96366; 96375; 36415; 71045; 80048; 80053; 81001; 82009; 82803; 82962; 83036; 83605; 83690; 83735; 84100; 85025; 87040; 87081; 87086; G0378; J0696; J2550; J2765; J3480; J7030